=== PATIENT | male | born 1945 | race Caucasian/White ===

== ENCOUNTER 2016-11-01 10:58 | Emergency (ER) | payer OTHER ==
[~2016-11-01] VITALS: Ht 182.9 cm; Wt 139.8 kg
[~2016-11-01 10:58] MED LIST: CLON0.1D5 TD; MCR5 PO; ONDA4TAB7 SL; TRIA75TA53 PO
[2016-11-01 11:00] VITALS: TEMP 36.6; Ht 182.9 cm; Wt 139.8 kg
[2016-11-01] MEDS ORDERED: SODIUM CHLORIDE 0.9% 1000ML 500 ML IV STA (11:08)
--- NOTE | 2016-11-01 11:15 | EMERGENCY ROOM VISIT NOTE ---
History Report prepared by Jose Miguel: Diana Herring Under the Supervision of: Dr. Dino Darling M.D. First contact with patient: 11:02 Chief Complaint: URINARY SYMPTOMS Stated Complaint: PAINFUL URINATION - CONSTANT LOWER UT PAIN Nursing Triage Summary: Burning and pain on urination. Hx of UTI. History of Present Illness The patient is a 71 year old male who presents to the Emergency Room with complaints of persistent urinary symptoms that began a few days ago. He currently rates his discomfort as an 8/10 in severity. The patient states that he has a history of UTIs over the past four years. He states that since September he has been passing stones. The patient states that he was placed on an antibiotic in September as well. He states that one year ago he was placed on Pyridium while also on his antibiotics, noting that it alleviated his pain. The patient states that he was told that he needs to have further testing prior to being prescribed more medication. Today he reports burning with urination and a slower urinary flow. The patient states that he has previously had a Allison catheter placed. He denies any fever, vomiting, or diarrhea. Source of History: patient Position: other (global) Symptom Intensity: 8/10 Quality: other (urinary symptoms) Timing: other (persistent) Associated Symptoms: No fevers, No vomiting, No diarrhea Review of Systems See HPI for pertinent positives & negatives. A total of 10 systems reviewed and were otherwise negative. Past Medical & Surgical Medical Problems: (1) Benign hypertension (2) Diabetes mellitus type 2 (3) Esophagitis (4) Pneumonia Family History Unobtainable family history due to adoption Social History Smoking Status: Never Smoker Alcohol Use: none Drug Use: none Marital Status: Housing Status: lives with significant other Occupation Status: employed Current/Historical Medications Scheduled Acetaminophen (Tylenol Arthritis Ext Rel), 650 MG PO Q8H Aspirin Enteric Coated (Ecotrin Or Generic), 325 MG PO TID Cephalexin Monohydrate (Keflex), 500 MG PO TID Clonidine Hcl (Tiujnnzw-Twd-5), 1 PATCH TOP WK Cranberry (Vaccinium Macrocarp (Azo-Cranberry), 450 MG PO BID Enalapril (Vasotec), 5 MG PO DAILY Glyburide (Micronase), 10 MG PO BID Pantoprazole (Protonix), 40 MG PO DAILY Phenazopyridine HCl (Azo Urinary Pain Relief), 95 MG PO TID Sitagliptin (Januvia), 50 MG PO DAILY Triamterene/Hctz (Dyazide 37.5MG/25MG), 1 TAB PO DAILY Scheduled PRN Phenazopyridine HCl (Pyridium), 200 MG PO TID PRN for Frequency/Burning w/ Urination Allergies Coded Allergies: Ciprofloxacin (Unverified Allergy, Unknown, cramping/nausea, 11/01/16) Physical Exam Vital Signs Date Time Temp Pulse Resp B/P (MAP) Pulse Ox O2 Delivery O2 Flow Rate FiO2 11/01/16 14:09 62 20 196/94 95 11/01/16 13:14 63 18 202/84 95 Room Air 11/01/16 11:00 36.6 73 18 210/83 94 Room Air Physical Exam GENERAL: Patient is in no acute distress. HEENT: No acute trauma, normocephalic atraumatic, mucous membranes moist, no nasal congestion, no scleral icterus. NECK: No stridor, no adenopathy, no meningismus, trachea is midline. LUNGS: Clear to auscultation bilaterally, no wheeze, no rhonchi, breath sounds equal. HEART: Without murmurs gallops or rubs, regular rate and rhythm. ABDOMEN: Small reducible nontender umbilical hernia. Soft, nontender, bowel sounds positive, no peritonitis. BACK: No flank discomfort with percussion. GROIN: No scrotal cellulitis, no discharge from the penile meatus. EXTREMITIES: Mild bilateral pedal edema. No cyanosis, full range of motion of all the joints without pain or difficulty, no signs for acute trauma. NEUROLOGIC: Oriented x 3, no acute motor or sensory deficits, no focal weakness. SKIN: No rash, no jaundice, no diaphoresis. Medical Decision & Procedures ER Provider Diagnostic Interpretation: Bladder scan revealed 2 cc, no significant retention. CT results as stated below per my review and radiologist interpretation: CT OF THE ABDOMEN AND PELVIS WITHOUT CONTRAST, STONE PROTOCOL CLINICAL HISTORY: Lower abdominal pain. Flank pain. Pain with urination. COMPARISON STUDY: Renal ultrasound January 11, 2013 and abdominal aortic ultrasound June 15, 2013. TECHNIQUE: Helical axial images of the abdomen and pelvis were obtained without IV or oral contrast according to renal stone protocol. A dose lowering technique was utilized adhering to the principles of ALARA. FINDINGS: Unenhanced images of the liver, adrenal glands and pancreas are unremarkable. A 2.5 cm hypodense splenic lesion may have minimal peripheral calcification. This is statistically benign. There is no hydronephrosis or hydroureter. There are possible punctate left renal calculi. There are no ureteral calculi. There is a 3.3 x 2.2 cm bladder calculus. There is a 1.6 cm exophytic lesion within the midpole of the right kidney. Attenuation on this exam is 46 Hounsfield units. This is indeterminate. The prostate is markedly enlarged, measuring 6.7 cm in transverse dimension. There is no evidence for a bowel obstruction. There is sigmoid diverticulosis without evidence for acute diverticulitis. Umbilical hernia contains a loop of small bowel without resultant bowel obstruction. The appendix is normal. A mildly enlarged left common iliac lymph node is unchanged and MRI of January 15, 2013. Therefore, this is likely benign. There are no suspicious skeletal lesions. IMPRESSION: 1. 3.3 x 2.2 cm bladder calculus. No ureteral calculi. No hydronephrosis or hydroureter. Possible punctate left renal calculus. 2. Indeterminate 1.6 cm lesion within the midpole of the right kidney. This could reflect a solid renal lesion or hyperdense cyst. A follow-up nonemergent renal protocol CT is recommended. 3. Sigmoid diverticulosis without evidence for acute diverticulitis. 4. Marked enlargement of the prostate. 5. Umbilical hernia which contains a loop of small bowel. No resultant bowel obstruction. Normal appendix. Electronically signed by: Ernesto Ayala M.D. 11/01/2016 12:46 PM Dictated Date/Time: 11/01/2016 12:34 PM Laboratory Results 11/01/16 11:47 Red Blood Count 4.24, Mean Corpuscular Volume 89.6, Mean Corpuscular Hemoglobin 28.3, Mean Corpuscular Hemoglobin Concent 31.6, Mean Platelet Volume 11.2, Neutrophils (%) (Auto) 65.1, Lymphocytes (%) (Auto) 25.0, Monocytes (%) (Auto) 8.3, Eosinophils (%) (Auto) 1.0, Basophils (%) (Auto) 0.3, Neutrophils # (Auto) 4.61, Lymphocytes # (Auto) 1.77, Monocytes # (Auto) 0.59, Eosinophils # (Auto) 0.07, Basophils # (Auto) 0.02 11/01/16 11:47 Test 11/01/16 11:27 11/01/16 11:47 Urine Color DK YELLOW Urine Appearance CLEAR (CLEAR) Urine pH 7.5 (4.5-7.5) Urine Specific [place] 1.021 (1.000-1.030) Urine Protein 2+ (NEG) Urine Glucose (UA) NEG (NEG) Urine Ketones NEG (NEG) Urine Occult Blood 2+ (NEG) Urine Nitrite POS (NEG) Urine Bilirubin NEG (NEG) Urine Urobilinogen NEG (NEG) Urine Leukocyte Esterase SMALL (NEG) Urine WBC (Auto) 10-30 /hpf (0-5) Urine RBC (Auto) >30 /hpf (0-4) Urine Hyaline Casts (Auto) 0 /lpf (0-5) Urine Epithelial Cells (Auto) 10-20 /lpf (0-5) Urine Bacteria (Auto) NEG (NEG) White Blood Count 7.08 K/uL (4.8-10.8) Red Blood Count 4.24 M/uL (4.7-6.1) Hemoglobin 12.0 g/dL (14.0-18.0) Hematocrit 38.0 % (42-52) Mean Corpuscular Volume 89.6 fL (80-100) Mean Corpuscular Hemoglobin 28.3 pg (25-34) Mean Corpuscular Hemoglobin Concent 31.6 g/dl (32-36) Platelet Count 164 K/uL (130-400) Mean Platelet Volume 11.2 fL (7.4-10.4) Neutrophils (%) (Auto) 65.1 % Lymphocytes (%) (Auto) 25.0 % Monocytes (%) (Auto) 8.3 % Eosinophils (%) (Auto) 1.0 % Basophils (%) (Auto) 0.3 % Neutrophils # (Auto) 4.61 K/uL (1.4-6.5) Lymphocytes # (Auto) 1.77 K/uL (1.2-3.4) Monocytes # (Auto) 0.59 K/uL (0.11-0.59) Eosinophils # (Auto) 0.07 K/uL (0-0.5) Basophils # (Auto) 0.02 K/uL (0-0.2) RDW Standard Deviation 49.5 fL (36.4-46.3) RDW Coefficient of Variation 15.2 % (11.5-14.5) Immature Granulocyte % (Auto) 0.3 % Immature Granulocyte # (Auto) 0.02 K/uL (0.00-0.02) Anion Gap 8.0 mmol/L (3-11) Est Creatinine Clear Calc Drug Dose 83.0 ml/min Estimated GFR () 70.6 Estimated GFR (Non- 60.9 BUN/Creatinine Ratio 18.9 (10-20) Lactic Acid Level 1.5 mmol/L (0.4-2.0) Calcium Level 9.0 mg/dl (8.5-10.1) Total Bilirubin 0.4 mg/dl (0.2-1) Aspartate Amino Transf (AST/SGOT) 23 U/L (15-37) Alanine Aminotransferase (ALT/SGPT) 30 U/L (12-78) Alkaline Phosphatase 77 U/L (45-117) Total Protein 7.3 gm/dl (6.4-8.2) Albumin 3.4 gm/dl (3.4-5.0) Globulin 3.9 gm/dl (2.5-4.0) Albumin/Globulin Ratio 0.9 (0.9-2) Laboratory results reviewed by me. Medications Administered Medications (Trade) Dose Ordered Sig/Mikey Route Start Time Stop Time Status Last Admin Dose Admin Sodium Chloride 500 ml @ 999 mls/hr Q31M STAT IV 11/01/16 11:08 11/01/16 11:38 DC 11/01/16 11:49 999 MLS/HR Ceftriaxone Sodium (Rocephin Inj) 1 gm NOW STAT IV 11/01/16 12:46 11/01/16 12:47 DC 11/01/16 13:13 1 GM Phenazopyridine HCl (Pyridium Tab) 200 mg NOW STAT PO 11/01/16 13:22 11/01/16 13:23 DC 11/01/16 13:38 200 MG ED Course 1105: The patient was evaluated in room C6. A complete history and physical exam was performed. 1108: Ordered Sodium Chloride 500 ml @ 999 mls/hr IV. 1246: Ordered Rocephin Inj 1 gm IV. 1322: Ordered Pyridium Tab 200 mg PO. 1326: I reevaluated the patient and he is resting comfortably. I discussed the exam findings with him and I discussed the treatment plan. He verbalized complete understanding and agreement. He is ready to go home. Medical Decision The patient is a 71 year old male who presents to the ED with complaints of urinary symptoms. Differential diagnoses considered include Prostatitis, UTI, urinary retention, renal colic, renal failure, sepsis, electrolyte abnormality, anemia. There is no leukocytosis or concerning anemia. No significant electrolyte abnormality, kidney failure or hepatitis. Lactic acid was not elevated making sepsis less likely. Urinalysis shows hematuria and possible infection, urine culture and blood cultures are pending. Bladder scan did not show any significant urinary retention. Abdominal and pelvis CT did not show any evidence for a passing ureteral stone. No hydronephrosis. Prostate was enlarged. There was a bladder stone seen. The patient received oral Pyridium for the burning sensation. He was given IV saline and IV ceftriaxone. The patient looks well, he is not toxic. He has been reassured. He is being discharged home. I think his discomfort is secondary to a UTI and/or prostatitis. The bladder stone may be aggravating his symptoms. Antibiotics are being prescribed. Pyridium for the burning. Hydration and rest were encouraged. He will follow with his family doctor and with urology. If worsening, he will return. Medication Reconcilliation Current Medication List: was personally reviewed by me Blood Pressure Screening Patient's blood pressure: Elevated blood pressure Blood pressure disposition: Elevated BP felt to be situational, Did not require urgent referral Impression Primary Impression: UTI (urinary tract infection) Additional Impressions: Dysuria Bladder stone Scribe Attestation The scribe's documentation has been prepared under my direction and personally reviewed by me in its entirety. I confirm that the note above accurately reflects all work, treatment, procedures, and medical decision making performed by me. Departure Information Dispostion Home / Self-Care Prescriptions Phenazopyridine HCl (Pyridium) 200 Mg Tab 200 MG PO TID Y for Frequency/Burning w/Urination, #15 TAB 1 Refill Prov: Dino Darling M.D. 11/01/16 Cephalexin Monohydrate (Keflex) 500 Mg Cap 500 MG PO TID for 10 Days, #30 CAP Prov: Dino Darling M.D. 11/01/16 Referrals Roe Hayes M.D. (PCP) Forms HOME CARE DOCUMENTATION FORM, IMPORTANT VISIT INFORMATION Patient Instructions My [facility] Additional Instructions keflex 3x per day for 10 days pyridium as need 3x per day for burning fluids rest talk with your doctor or urology for a recheck and for the bladder stone return for fever, vomiting or worsening symptoms Problem Qualifiers
[2016-11-01] MEDS ORDERED: GLYB5TAB8 PO (11:46)
[2016-11-01] MEDS ORDERED: TRIA37.5 PO (11:46)
[2016-11-01] MEDS ORDERED: SITA50TA3 PO (11:46)
[2016-11-01] MEDS ORDERED: CLON0.2D4 TOP (11:46)
[2016-11-01] MEDS ORDERED: ACET1TAB84 PO (11:47)
[2016-11-01] MEDS ORDERED: CRAN450T3 PO (11:47)
[2016-11-01] MEDS ORDERED: PHEN95TA10 PO (11:47)
[2016-11-01] MEDS ORDERED: ASPI-113 PO (11:47)
[2016-11-01 12:11] LABS: URINE APPEARANCE CLEAR (CLEAR); URINE BILIRUBIN NEG (NEG); URINE COLOR DK YELLOW; URINE NITRITE POS (NEG); URINE PH 7.5 (4.5-7.5); URINE SPECIFIC GRAVITY 1.021 (1.000-1.030); UROBILINOGEN NEG (NEG); ZZUR CULT IF INDIC CLEAN CATCH YES
[2016-11-01 12:16] LABS: BASO % 0.3 %; BASO ABS # 0.02 K/uL (0-0.2); COMPLETE YES; IG% 0.3 %; LYMPH ABS # 1.77 K/uL (1.2-3.4); MEAN CELL VOLUME 89.6 fL (80-100); MEAN CORPUSCULAR HEMOGLOBIN 28.3 pg (25-34); MEAN CORPUSCULAR HGB CONC 31.6 g/dl (32-36); MEAN PLATELET VOLUME 11.2 fL (7.4-10.4); MONO % 8.3 %; NEUT % 65.1 %; PLATELET COUNT 164 K/uL (130-400); RED BLOOD COUNT 4.24 M/uL (4.7-6.1); WHITE BLOOD COUNT 7.08 K/uL (4.8-10.8)
[2016-11-01 12:16] LABS: MANUAL MICROSCOPIC REQUIRED? NO; REVIEW REQ? NO
[2016-11-01 12:19] LABS: SULFASALICYLIC ACID POS (NEG)
[2016-11-01 12:27] LABS: BUN/CREATININE RATIO 18.9 (10-20); CREATININE 1.2 mg/dl (0.60-1.40)
[2016-11-01 12:30] LABS: ALB/GLOB RATIO 0.9 (0.9-2)
[2016-11-01] MEDS ORDERED: CEFTRIAXONE SOD INJ 1 GM ADDVIAL IV STA (12:46)
--- NOTE | 2016-11-01 12:47 | DIAGNOSTIC IMAGING REPORT ---
CT OF THE ABDOMEN AND PELVIS WITHOUT CONTRAST, STONE PROTOCOL CLINICAL HISTORY: Lower abdominal pain. Flank pain. Pain with urination. COMPARISON STUDY: Renal ultrasound January 11, 2013 and abdominal aortic ultrasound June 15, 2013. TECHNIQUE: Helical axial images of the abdomen and pelvis were obtained without IV or oral contrast according to renal stone protocol. A dose lowering technique was utilized adhering to the principles of ALARA. FINDINGS: Unenhanced images of the liver, adrenal glands and pancreas are unremarkable. A 2.5 cm hypodense splenic lesion may have minimal peripheral calcification. This is statistically benign. There is no hydronephrosis or hydroureter. There are possible punctate left renal calculi. There are no ureteral calculi. There is a 3.3 x 2.2 cm bladder calculus. There is a 1.6 cm exophytic lesion within the midpole of the right kidney. Attenuation on this exam is 46 Hounsfield units. This is indeterminate. The prostate is markedly enlarged, measuring 6.7 cm in transverse dimension. There is no evidence for a bowel obstruction. There is sigmoid diverticulosis without evidence for acute diverticulitis. Umbilical hernia contains a loop of small bowel without resultant bowel obstruction. The appendix is normal. A mildly enlarged left common iliac lymph node is unchanged and MRI of January 15, 2013. Therefore, this is likely benign. There are no suspicious skeletal lesions. IMPRESSION: 1. 3.3 x 2.2 cm bladder calculus. No ureteral calculi. No hydronephrosis or hydroureter. Possible punctate left renal calculus. 2. Indeterminate 1.6 cm lesion within the midpole of the right kidney. This could reflect a solid renal lesion or hyperdense cyst. A follow-up nonemergent renal protocol CT is recommended. 3. Sigmoid diverticulosis without evidence for acute diverticulitis. 4. Marked enlargement of the prostate. 5. Umbilical hernia which contains a loop of small bowel. No resultant bowel obstruction. Normal appendix. Electronically signed by: Ernesto Ayala M.D. 11/01/2016 12:46 PM Dictated Date/Time: 11/01/2016 12:34 PM
[2016-11-01] MEDS ORDERED: PHENAZOPYRIDINE HCL 200 MG TAB PO STA (13:22)
[2016-11-01] MEDS ORDERED: PHEN-876 PO (13:32)
[2016-11-01] MEDS ORDERED: CEPH500C PO (13:32)
[2016-11-01 14:09] VITALS: BP 196/94; PULSE 62; O2SAT 95
[2016-11-01] MEDS ORDERED: PANT40TA PO (15:24)
[2016-11-01] MEDS ORDERED: ENAL5TAB83 PO (15:46)
== END 2016-11-01 14:09 | disposition home or self-care (01) ==
LOC: C.EDB 10:59 → C.EDC 14:09
DX: N39.0 Urinary tract infection, site not specified (principal); R30.0 Dysuria; N21.0 Calculus in bladder; E11.9 Type 2 diabetes mellitus without complications; I10 Essential (primary) hypertension

== ENCOUNTER 2017-03-15 12:54 | Emergency (ER) | payer OTHER ==
[~2017-03-15] VITALS: Ht 182.9 cm; Wt 138.4 kg
[~2017-03-15 12:54] MED LIST changes: +ACET1TAB84 PO; +ASPI-113 PO; -CLON0.1D5 TD; +CLON0.2D4 TOP; +CRAN450T3 PO; +ENAL5TAB83 PO; +GLYB5TAB8 PO; -MCR5 PO; -ONDA4TAB7 SL; +PANT40TA PO; +PHEN-876 PO; +PHEN95TA10 PO; +SITA50TA3 PO; +TRIA37.5 PO; -TRIA75TA53 PO
[2017-03-15 12:58] VITALS: TEMP 36.7; Ht 182.9 cm; Wt 138.4 kg
[2017-03-15] MEDS ORDERED: SODIUM CHLORIDE 0.9% 500ML 500 ML IV STA (13:11)
[2017-03-15] MEDS ORDERED: ALBUT/IPRATROP 3MG/0.5MG NEB 3 ML VIAL INH STA (13:11)
[2017-03-15] MEDS ORDERED: ACETAMINOPHEN 500 MG TAB PO STA (13:19)
--- NOTE | 2017-03-15 13:30 | EMERGENCY ROOM VISIT NOTE ---
History First contact with patient: 13:02 Chief Complaint: COUGH Stated Complaint: COUGHING, LOW FEVER, WEAKNESS History of Present Illness The patient is a 71 year old male who presents to the Emergency Room with complaints of cough, congestion, sore throat, and headaches for the past 5 days. Patient states he has been taking Claritin and Mucinex with some improvement, and has been coughing up green mucus. Today he was feeling worse and noted a fever of 99, and also felt some chest tightness with coughing today , which is what prompted him to come to the emergency department. He reports his headache is constant, frontal in the forehead and behind the eyes, worse with bending over, relieved with Claritin. He states his throat is also sore, constant, hurts to swallow, worse in the morning, 8/10. He has had improvement with Tylenol, but has not taken any today. He reports a history of pulmonary fibrosis, but is not on any medications for this. 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 Patient denies any vision changes, neck pain or stiffness, numbness or weakness of the extremities, abdominal pain, back pain, nausea/vomiting, diarrhea, dysuria or urinary frequency, or rash. Review of Systems A complete 10 point review of systems was reviewed with the patient with pertinent positives and negatives as per history of present illness. All else were negative. Past Medical/Surgical History Medical Problems: (1) Benign hypertension (2) Diabetes mellitus type 2 (3) Esophagitis (4) Pneumonia Family History Unobtainable family history due to adoption Social History Smoking Status: Never Smoker Alcohol Use: none Drug Use: none Marital Status: Housing Status: lives with significant other Occupation Status: employed Current/Historical Medications Scheduled Acetaminophen (Tylenol Arthritis Ext Rel), 650 MG PO Q8H Amoxicillin & Pot Clavulanate (Augmentin 875-125 mg), 1 TAB PO BID Aspirin Enteric Coated (Ecotrin Or Generic), 325 MG PO TID Clonidine Hcl ([id number]-2), 1 PATCH TOP WK Cranberry (Vaccinium Macrocarp (Azo-Cranberry), 450 MG PO BID Enalapril (Vasotec), 5 MG PO DAILY Glyburide (Micronase), 10 MG PO BID Pantoprazole (Protonix), 40 MG PO DAILY Phenazopyridine HCl (Azo Urinary Pain Relief), 95 MG PO TID Sitagliptin (Januvia), 50 MG PO DAILY Triamterene/Hctz (Dyazide 37.5MG/25MG), 1 TAB PO DAILY Allergies Reviewed in chart Physical Exam Vital Signs Date Time Temp Pulse Resp B/P (MAP) Pulse Ox O2 Delivery O2 Flow Rate FiO2 03/15/17 16:45 89 20 94 03/15/17 16:34 83 03/15/17 16:14 95 Room Air 03/15/17 16:06 82 20 152/82 89 Room Air 03/15/17 14:30 96 24 122/79 94 Room Air 03/15/17 13:50 87 03/15/17 12:58 36.7 82 20 182/85 93 Room Air Physical Exam CONSTITUTIONAL: Pleasant and cooperative. No acute distress, nontoxic appearing. Mildly dehydrated. HEENT: Normocephalic, atraumatic. Tenderness to palpation of the frontal and maxillary sinuses, no erythema or swelling of the face. PERRL, EOMI. The right conjunctiva is slightly erythematous and injected, the left conjunctiva is clear. TMs normal. Pharynx slightly erythematous, no swelling or pustules, postnasal drainage noted. Tacky mucous membranes. NECK: Supple, full active range of motion without discomfort. Mild bilateral anterior cervical adenopathy, tender to palpation. RESPIRATORY: Diminished throughout, no wheezing, crackles, rhonchi or stridor. Equal expansion bilaterally. CARDIOVASCULAR: Regular rate and rhythm with no murmurs, rubs or gallops. Normal peripheral perfusion. No edema. GASTROINTESTINAL: Soft, nontender, nondistended, obese. No palpable masses or HSM. Bowel sounds present in all quadrants. MUSCULOSKELETAL: Full range of motion of all joints without discomfort. INTEGUMENTARY: No rash or other significant dermatologic conditions noted. NEUROLOGIC: Alert and oriented X 4 with normal affect. Cranial nerves II-XII grossly intact. No focal neurologic deficits noted. Normal strength and sensation of all 4 extremities, normal speech, normal gait observed. Normal [id number]-ratr-igrprm testing, negative Romberg. Medical Decision & Procedures ER Provider Diagnostic Interpretation: CHEST 2 VIEWS ROUTINE CLINICAL HISTORY: Respiratory distress, cough, fever, flulike symptoms. COMPARISON STUDY: 06/10/2014 FINDINGS: The cardiac and mediastinal contours are normal. There is no evidence of focal pulmonary consolidation. There is no evidence of failure. No pleural effusions are visualized. IMPRESSION: No active disease in the chest. Laboratory Results 03/15/17 14:06 Red Blood Count 4.66, Mean Corpuscular Volume 87.3, Mean Corpuscular Hemoglobin 28.1, Mean Corpuscular Hemoglobin Concent 32.2, Mean Platelet Volume 11.7, Neutrophils (%) (Auto) 71.5, Lymphocytes (%) (Auto) 17.8, Monocytes (%) (Auto) 9.0, Eosinophils (%) (Auto) 1.2, Basophils (%) (Auto) 0.3, Neutrophils # (Auto) 8.51, Lymphocytes # (Auto) 2.11, Monocytes # (Auto) 1.07, Eosinophils # (Auto) 0.14, Basophils # (Auto) 0.03 03/15/17 14:06 Test 03/15/17 13:24 03/15/17 14:06 03/15/17 15:35 Influenza Type A (RT-PCR) Neg for Influ A (NEG) Influenza Type A Antigen Neg for Influ A (NEG) Influenza Type B Antigen Neg for Influ B (NEG) Influenza Type B (RT-PCR) Neg for Influ B (NEG) White Blood Count 11.88 K/uL (4.8-10.8) Red Blood Count 4.66 M/uL (4.7-6.1) Hemoglobin 13.1 g/dL (14.0-18.0) Hematocrit 40.7 % (42-52) Mean Corpuscular Volume 87.3 fL (80-100) Mean Corpuscular Hemoglobin 28.1 pg (25-34) Mean Corpuscular Hemoglobin Concent 32.2 g/dl (32-36) Platelet Count 157 K/uL (130-400) Mean Platelet Volume 11.7 fL (7.4-10.4) Neutrophils (%) (Auto) 71.5 % Lymphocytes (%) (Auto) 17.8 % Monocytes (%) (Auto) 9.0 % Eosinophils (%) (Auto) 1.2 % Basophils (%) (Auto) 0.3 % Neutrophils # (Auto) 8.51 K/uL (1.4-6.5) Lymphocytes # (Auto) 2.11 K/uL (1.2-3.4) Monocytes # (Auto) 1.07 K/uL (0.11-0.59) Eosinophils # (Auto) 0.14 K/uL (0-0.5) Basophils # (Auto) 0.03 K/uL (0-0.2) RDW Standard Deviation 48.5 fL (36.4-46.3) RDW Coefficient of Variation 15.3 % (11.5-14.5) Immature Granulocyte % (Auto) 0.2 % Immature Granulocyte # (Auto) 0.02 K/uL (0.00-0.02) Anion Gap 3.0 mmol/L (3-11) Est Creatinine Clear Calc Drug Dose 72.3 ml/min Estimated GFR () 60.1 Estimated GFR (Non- 51.9 BUN/Creatinine Ratio 11.7 (10-20) Lactic Acid Level 2.0 mmol/L (0.4-2.0) Calcium Level 9.5 mg/dl (8.5-10.1) Total Bilirubin 0.4 mg/dl (0.2-1) Aspartate Amino Transf (AST/SGOT) 13 U/L (15-37) Alanine Aminotransferase (ALT/SGPT) 28 U/L (12-78) Alkaline Phosphatase 94 U/L (45-117) Troponin I < 0.015 ng/ml (0-0.045) Total Protein 8.7 gm/dl (6.4-8.2) Albumin 3.5 gm/dl (3.4-5.0) Globulin 5.2 gm/dl (2.5-4.0) Albumin/Globulin Ratio 0.7 (0.9-2) Urine Color DK YELLOW Urine Appearance CLEAR (CLEAR) Urine pH 8.5 (4.5-7.5) Urine Specific [place] 1.019 (1.000-1.030) Urine Protein NEG (NEG) Urine Glucose (UA) NEG (NEG) Urine Ketones NEG (NEG) Urine Occult Blood NEG (NEG) Urine Nitrite POS (NEG) Urine Bilirubin NEG (NEG) Urine Urobilinogen NEG (NEG) Urine Leukocyte Esterase SMALL (NEG) Urine WBC (Auto) 10-30 /hpf (0-5) Urine RBC (Auto) 0-4 /hpf (0-4) Urine Hyaline Casts (Auto) 1-5 /lpf (0-5) Urine Epithelial Cells (Auto) 0-5 /lpf (0-5) Urine Bacteria (Auto) NEG (NEG) Medications Administered Medications (Trade) Dose Ordered Sig/Mikey Route Start Time Stop Time Status Last Admin Dose Admin Albuterol/ Ipratropium (Duoneb) 3 ml NOW STAT INH 03/15/17 13:11 03/15/17 13:16 DC 03/15/17 13:35 3 ML Sodium Chloride 500 ml @ 999 mls/hr Q31M STAT IV 03/15/17 13:11 03/15/17 14:38 DC 03/15/17 13:11 999 MLS/HR Acetaminophen (Tylenol Tab) 1,000 mg NOW STAT PO 03/15/17 13:19 03/15/17 13:20 DC 03/15/17 13:35 1,000 MG Albuterol (Ventolin Hfa Inhaler) 2 puffs NOW ONCE INH 03/15/17 16:00 03/15/17 16:01 DC 03/15/17 16:11 2 PUFFS Amoxicillin/ Clavulanate Potassium (Augmentin Tab) 875 mg NOW ONCE PO 03/15/17 16:30 03/15/17 16:31 DC 03/15/17 16:40 875 MG ECG Indication: SOB/dyspnea, weakness Rate (beats per minute): 95 Rhythm: normal sinus Findings: 1st degree AV block, PVC, no acute ischemic change Change: no significant change (when compared to 06/10/2014, PVCs now present ( PVCs noted on several other past EKGs, not a new problem)) Medical Decision CC: Patient presenting with complaint of cough, congestion, sore throat, sinus headaches, fevers Interpretation of Labs: Mild leukocytosis, mild anemia (baseline), hyperglycemia , mild hyponatremia, no other significant electrolyte abnormalities, normal renal function, normal liver enzymes. Influenza A/B negative. UA shows positive for nitrites, culture pending. Differential Diagnosis: Includes, but not limited to viral URI, sinusitis, influenza, pharyngitis, bronchitis, pneumonia, ACS Medication Reconciliation: I attest that I have personally reviewed the patient' s current medication list. Vital signs review: I reviewed the patient's vital signs and interpret them as follows: T: Afebrile; BP: Hypertensive; HR: Within normal limits; RR: Within normal limits; Pulse Ox: Within normal limits on room air. Blood pressure screening: The patient was found to have an elevated blood pressure and was referred to their primary doctor for recheck and further treatment. Summary: Patient was evaluated at bedside, history and physical exam performed. Patient is alert and oriented, no acute distress and nontoxic appearing, resting , in the stretcher. Patient does appear highly uncomfortable, fatigued, and mildly dehydrated. Neuro exam is intact, he is alert and oriented, and no focal deficits noted. He does have some sinus tenderness of the frontal maxillary sinuses, and mild right conjunctivitis noted. Lungs are clear without any wheezes or rhonchi heard, but diminished throughout and patient complaining of cough and chest tightness. I did recheck the patient's temperature in the room, currently 99.5, and he is complaining of some chills. Orders were placed at bedside for labs, UA, IV fluids for hydration, DuoNeb, Tylenol, EKG, chest x-ray to evaluate for cardiopulmonary disease. Patient discussed with Dr. Ventura, who agrees with my assessment and plan. Nursing notified me unable to obtain IV access, labs have been sent. Patient is able to tolerate PO, will encourage oral rehydration at this time. Labs reviewed as above, mild leukocytosis. Influenza is negative. UA concerning for possible UTI, however patient is asymptomatic and states chronic urinary problems, will send culture for confirmation. Chest x-ray is unremarkable with no acute abnormalities. EKG shows sinus rhythm with first-degree AV block, no acute ischemic changes noted. Patient reassessed multiple times throughout ED stay, patient does feel improved after neb treatment, he does state that his cough and breathing feel better. Patient was provided with an albuterol inhaler and spacer for continued use at home. Rx for Augmentin to treat for sinus infection and bronchitis, given worsening symptoms with colored sputum and development of low-grade fevers. Ambulatory sats within normal limits and no shortness of breath or distress with ambulation noted by nursing staff. I updated the patient on all results and plan for discharge, encouraging him to follow closely with his primary care provider. He was also given strict return precautions should his symptoms worsen. The patient verbalized understanding of all discharge instructions and was comfortable with the plan. Patient was discharged home in stable condition and ambulatory. Medication Reconcilliation Current Medication List: was personally reviewed by me Blood Pressure Screening Patient's blood pressure: Elevated blood pressure Impression Primary Impression: Sinusitis, acute Additional Impression: Bronchitis Departure Information Dispostion Home / Self-Care Condition GOOD Prescriptions Amoxicillin & Pot Clavulanate (Augmentin 875-125 mg) 1 Tab Tab 1 TAB PO BID for 10 Days, #20 TAB Prov: Jaquelin Evans Yoanna, DATA ANALYTICS ANALYST 03/15/17 Referrals Roe Hayes M.D. (PCP) Patient Instructions ED Sinusitis Abx Tx, ED Upper Resp Infec Abx Tx, My [facility] Additional Instructions You have been evaluated in the emergency department for your cough and sinus congestion. There is no evidence of pneumonia on your chest x-ray. You are being treated for a sinus infection and bronchitis. You were prescribed Augmentin to be taken twice a day for 10 days. This is an antibiotic. All antibiotics have the potential to cause diarrhea. Stop this medication and contact a medical provider if you were to develop any significant adverse side effects including: wheezing, shortness of breath, passing out, vomiting, or a diffuse rash. Always take antibiotics as directed and COMPLETE the ENTIRE course regardless of the improvement of your symptoms. Use the albuterol inhaler TWO puffs every 4 hours as needed for cough, wheezing , chest tightness. You should also use this before bed to help prevent coughing so that you can sleep better at night. For body aches or fevers, you may use the following edex-yqq-bynmtif medicines ( if >12 yo): - Regular strength (325mg/tab) Tylenol (acetaminophen) 2 tabs every 4-6 hours as needed. Do not exceed 10 tablets in a 24 hour period. Avoid taking more than 3000 mg of Tylenol per day. This includes any other sources of acetaminophen you may take on a regular basis. - Regular strength (200 mg/tab) Advil (ibuprofen) 3 tabs every 6-8 hours as needed. Do not exceed a dose of 2400 mg per day. - For best results, alternate dosing of Tylenol and Advil. Use warm salt water gargles and drink warm tea to help soothe your throat. Use saline nasal spray to help keep your nasal passages moist and help reduce inflammation. You may also try nasal Flonase or Nasonex, 2 sprays to each nostril once a day to help reduce nasal inflammation and drainage. It is very important that you drink lots of fluids to stay hydrated. Follow-up with your PCP in the next 2-3 days for re-evaluation, or sooner if your symptoms are worsening. Please return to the emergency department get worse, including difficulty breathing, wheezing, chest pain, severe dizziness or passing out, increased throat pain or difficulty swallowing, fevers >101 or chills, or any other concerns. Problem Qualifiers Primary Impression: Sinusitis, acute Sinusitis location: unspecified location Recurrence: not specified as recurrent Qualified Codes: J01.90 - Acute sinusitis, unspecified
[2017-03-15 13:57] LABS: INFLUENZA B ANTIGEN Neg for Influ B (NEG)
[2017-03-15 14:22] LABS: BASO % 0.3 %; BASO ABS # 0.03 K/uL (0-0.2); EOS % 1.2 %; EOS ABS # 0.14 K/uL (0-0.5); HEMATOCRIT 40.7 % (42-52); HEMOGLOBIN 13.1 g/dL (14.0-18.0); IG# 0.02 K/uL (0.00-0.02); LYMPH % 17.8 %; LYMPH ABS # 2.11 K/uL (1.2-3.4); MEAN CELL VOLUME 87.3 fL (80-100); MEAN CORPUSCULAR HEMOGLOBIN 28.1 pg (25-34); MEAN CORPUSCULAR HGB CONC 32.2 g/dl (32-36); MEAN PLATELET VOLUME 11.7 fL (7.4-10.4); MONO ABS # 1.07 K/uL (0.11-0.59); NEUT % 71.5 %; NEUT ABS # 8.51 K/uL (1.4-6.5); PLATELET COUNT 157 K/uL (130-400); RED CELL DISTRIBUTION WIDTH CV 15.3 % (11.5-14.5); RED CELL DISTRIBUTION WIDTH SD 48.5 fL (36.4-46.3); WHITE BLOOD COUNT 11.88 K/uL (4.8-10.8)
--- NOTE | 2017-03-15 14:26 | EMERGENCY ROOM VISIT NOTE ---
ED Visit Note First contact with patient: 13:02 The patient was seen and examined with GRAYSON Carpenter. I agree with the history, physical and findings. Please see the note for disposition and details.
--- NOTE | 2017-03-15 14:29 | DIAGNOSTIC IMAGING REPORT ---
CHEST 2 VIEWS ROUTINE CLINICAL HISTORY: Respiratory distress, cough, fever, flulike symptoms. COMPARISON STUDY: 06/10/2014 FINDINGS: The cardiac and mediastinal contours are normal. There is no evidence of focal pulmonary consolidation. There is no evidence of failure. No pleural effusions are visualized.[ IMPRESSION: No active disease in the chest. Electronically signed by: Kavon Hastings M.D. 03/15/2017 2:28 PM Dictated Date/Time: 03/15/2017 2:28 PM
[2017-03-15 14:45] LABS: ALBUMIN 3.5 gm/dl (3.4-5.0); ALT/SGPT 28 U/L (12-78); AST/SGOT 13 U/L (15-37); BLOOD UREA NITROGEN 16 mg/dl (7-18); CALCIUM 9.5 mg/dl (8.5-10.1); CARBON DIOXIDE 31 mmol/L (21-32); CREATININE 1.37 mg/dl (0.60-1.40); GLUCOSE 249 mg/dl (70-99); POTASSIUM 4.3 mmol/L (3.5-5.1); SODIUM 132 mmol/L (136-145)
[2017-03-15 14:52] LABS: INFLUENZA A PCR Neg for Influ A (NEG); INFLUENZA B PCR Neg for Influ B (NEG)
[2017-03-15 15:01] LABS: ALKALINE PHOSPHATASE 94 U/L (45-117); TOTAL PROTEIN 8.7 gm/dl (6.4-8.2)
[2017-03-15] MEDS ORDERED: ALBUTEROL HFA 8 GM INHALER INH ONE (16:00)
[2017-03-15 16:06] VITALS: BP 152/82
[2017-03-15 16:14] VITALS: O2SAT 95
[2017-03-15] MEDS ORDERED: AMOX875T PO (16:20)
[2017-03-15] MEDS ORDERED: AMOXICILLIN/CLAVULANATE TAB 875 MG TAB PO ONE (16:30)
[2017-03-15 16:45] VITALS: PULSE 89; O2SAT 94
== END 2017-03-15 16:40 | disposition home or self-care (01) ==
LOC: C.EDB 12:56 → C.EDA 16:40
DX: J01.90 Acute sinusitis, unspecified (principal); J40 Bronchitis, not specified as acute or chronic; I44.0 Atrioventricular block, first degree; I10 Essential (primary) hypertension; E11.9 Type 2 diabetes mellitus without complications; K20.9 Esophagitis, unspecified; Z79.82 Long term (current) use of aspirin; Z79.899 Other long term (current) drug therapy

== ENCOUNTER 2017-03-21 11:37 | Emergency (ER) | payer OTHER ==
[~2017-03-21] VITALS: Ht 182.9 cm; Wt 137.0 kg
[~2017-03-21 11:37] MED LIST changes: +AMOX875T PO; -PHEN-876 PO
[2017-03-21 11:39] VITALS: TEMP 37; Ht 182.9 cm; Wt 137.0 kg
[2017-03-21] MEDS ORDERED: SITA100T3 PO (12:20)
--- NOTE | 2017-03-21 12:29 | DIAGNOSTIC IMAGING REPORT ---
CHEST 2 VIEWS ROUTINE CLINICAL HISTORY: cough COMPARISON STUDY: 03/15/2017 FINDINGS: The cardiac and mediastinal contours are normal. There is no evidence of focal pulmonary consolidation. There is no evidence of failure. No pleural effusions are visualized.[ IMPRESSION: No active disease in the chest. Electronically signed by: Kavon Hastings M.D. 03/21/2017 12:28 PM Dictated Date/Time: 03/21/2017 12:28 PM
--- NOTE | 2017-03-21 12:35 | EMERGENCY ROOM VISIT NOTE ---
History Report prepared by Jose Miguel: Gayatri Devine Under the Supervision of: Eze VarmaO. First contact with patient: 11:45 Chief Complaint: URINARY SYMPTOMS Stated Complaint: UTI,URGENCY,PAIN,FREQUENCY,COUGH History of Present Illness The patient is a 71 year old male who presents to the Emergency Room with complaints of persistent urinary symptoms that began a few days ago. He notes that he has pain and a burning sensation when he urinates. The patient denies any back pain, swelling in the legs, or swelling of his penis. He states that he has been urinating more frequently. The patient states he was diagnosed with Bronchitis 6 days ago. He notes a history of bladder stones. The patient denies a history of blood clots. Source of History: patient Onset: few days ago Position: other (global ) Quality: other (urinary symptoms) Timing: other (persistent) Associated Symptoms: No back pain Review of Systems See HPI for pertinent positives & negatives. A total of 10 systems reviewed and were otherwise negative. Past Medical & Surgical Medical Problems: (1) Benign hypertension (2) Diabetes mellitus type 2 (3) Esophagitis (4) Pneumonia Family History Unobtainable family history due to adoption Social History Smoking Status: Never Smoker Alcohol Use: none Drug Use: none Marital Status: Housing Status: lives with significant other Occupation Status: employed Current/Historical Medications Scheduled Acetaminophen (Tylenol Arthritis Ext Rel), 650 MG PO Q8H Amoxicillin & Pot Clavulanate (Augmentin 875-125 mg), 1 TAB PO BID Aspirin Enteric Coated (Ecotrin Or Generic), 325 MG PO TID Clonidine Hcl ([id number]), 1 PATCH TOP WK Cranberry (Vaccinium Macrocarp (Azo-Cranberry), 450 MG PO BID Enalapril (Vasotec), 5 MG PO DAILY Glyburide (Micronase), 10 MG PO BID Nitrofurantoin Monohyd Macrocr (Macrobid), 100 MG PO BID Nystatin (Topical) (Nystatin), 1 APPLN TOP TID Pantoprazole (Protonix), 40 MG PO DAILY Phenazopyridine HCl (Azo Urinary Pain Relief), 95 MG PO BID Sitagliptin Phosphate (Januvia), 100 MG PO DAILY Triamterene/Hctz (Dyazide 37.5MG/25MG), 1 TAB PO DAILY Allergies Coded Allergies: Ciprofloxacin (Unverified Allergy, Unknown, cramping/nausea, 03/21/17) Physical Exam Vital Signs Date Time Temp Pulse Resp B/P (MAP) Pulse Ox O2 Delivery O2 Flow Rate FiO2 03/21/17 13:31 71 20 178/94 93 03/21/17 11:39 37.0 72 18 185/93 93 Physical Exam GENERAL: Patient is awake, alert, and in no acute distress. Patient is resting comfortably and showing no signs of anxiety EYES: The conjunctivae are clear. The pupils are round and reactive. EARS, NOSE, MOUTH AND THROAT: The nose is without any evidence of any deformity. Mucous membranes are moist tongue is midline NECK: The neck is nontender and supple. RESPIRATORY: Normal respiratory effort is noted there is no evidence of wheezing rhonchi or rales CARDIOVASCULAR: Regular rate and rhythm noted there no murmurs rubs or gallops normal S1 normal S2 GASTROINTESTINAL: The abdomen is soft. Bowel sounds are present in all quadrants. Abdomen is nontender : Circumcised male genitalia appreciated, testicles descended and nontender bilaterally, erythema at tip of penis consistent with Balanitis. MUSCULOSKELETAL/EXTREMITIES: There is no evidence of gross deformity full range of motion is noted in the hips and shoulders SKIN: There is no obvious evidence of any rash. There are no petechiae, pallor or cyanosis noted. NEUROLOGIC: Patient is awake alert and oriented x3 strength is symmetric patellar reflexes are 2+ bilaterally Medical Decision & Procedures ER Provider Diagnostic Interpretation: Radiology results as stated below per my review and radiologist interpretation: CHEST 2 VIEWS ROUTINE CLINICAL HISTORY: cough COMPARISON STUDY: 03/15/2017 FINDINGS: The cardiac and mediastinal contours are normal. There is no evidence of focal pulmonary consolidation. There is no evidence of failure. No pleural effusions are visualized.[ IMPRESSION: No active disease in the chest. Electronically signed by: Kavon Hastings M.D. 03/21/2017 12:28 PM Dictated Date/Time: 03/21/2017 12:28 PM Laboratory Results Test 03/21/17 12:42 Urine Color DK YELLOW Urine Appearance CLEAR (CLEAR) Urine pH 7.5 (4.5-7.5) Urine Specific [place] 1.017 (1.000-1.030) Urine Protein 2+ (NEG) Urine Glucose (UA) NEG (NEG) Urine Ketones NEG (NEG) Urine Occult Blood 3+ (NEG) Urine Nitrite POS (NEG) Urine Bilirubin NEG (NEG) Urine Urobilinogen NEG (NEG) Urine Leukocyte Esterase SMALL (NEG) Urine WBC (Auto) 1-5 /hpf (0-5) Urine RBC (Auto) >30 /hpf (0-4) Urine Hyaline Casts (Auto) 0 /lpf (0-5) Urine Epithelial Cells (Auto) 5-10 /lpf (0-5) Urine Bacteria (Auto) NEG (NEG) Laboratory results per my review. Medications Administered Medications (Trade) Dose Ordered Sig/Mikey Route Start Time Stop Time Status Last Admin Dose Admin Nitrofurantoin Macrocrystals (Macrobid Cap) 100 mg ONE ONCE PO 03/21/17 13:15 03/21/17 13:16 DC 03/21/17 13:28 100 MG ED Course 1158: The patient was evaluated in room B2. A complete history and physical examination were performed. 1315: Ordered Macrobid Cap 100mg PO. 1322: Upon reevaluation, the patient is resting comfortably. I discussed the results and treatment plan with him. He verbalized agreement of the treatment plan. The patient was discharged home. Medical Decision Prior records/ancillary studies reviewed. Triage Nursing notes reviewed. The patient's history was concerning for abdominal pain. Differential diagnosis: Etiologies such as appendicitis, diverticulitis, PUD, biliary pathology, UTI, pancreatitis, obstruction, mesenteric ischemia, aortic pathology, infections, inflammatory bowel disease, renal colic, as well as others were entertained. The patient is a 71-year-old male who presented to the emergency department for an evaluation of dysuria and frequency. The patient has hematuria and may be suffering from a cystitis. He was recently started on antibiotic for an upper respiratory infection but it does not appear to be helping his urinary symptoms. The patient was started on a different antibiotic. I discussed the patient's laboratory and radiographic studies with him. He was encouraged to rest and avoid any strenuous activity. He was also encouraged to drink plenty clear liquids and follow-up with his primary urologist. Otherwise I encouraged him to return to the emergency department immediately if symptoms change worsen or the need arises. Medication Reconcilliation Current Medication List: was personally reviewed by me Impression Primary Impression: Cystitis Additional Impressions: Balanitis Hematuria Scribe Attestation The scribe's documentation has been prepared under my direction and personally reviewed by me in its entirety. I confirm that the note above accurately reflects all work, treatment, procedures, and medical decision making performed by me. Departure Information Dispostion Home / Self-Care Prescriptions Nitrofurantoin Monohyd Macrocr (Macrobid) 100 Mg Cap 100 MG PO BID, #14 CAP Prov: Adiel Vidal, DO 03/21/17 Nystatin (Topical) (NYSTATIN) 100,000 Unit/Gm Oin 1 APPLN TOP TID for 5 Days, #30 GM 1 Refill Prov: Adiel Vidal, DO 03/21/17 Referrals Roe Hayes M.D. (PCP) Forms HOME CARE DOCUMENTATION FORM, IMPORTANT VISIT INFORMATION Patient Instructions My [facility] Additional Instructions Call your primary urologist to schedule a follow-up appointment. Continue all other medications as prescribed. Drink plenty clear liquids. Return to the emergency Department immediately if symptoms change worsen or the need arises. Problem Qualifiers Additional Impressions: Hematuria Hematuria type: unspecified type Qualified Codes: R31.9 - Hematuria, unspecified
[2017-03-21] MEDS ORDERED: NITROFURANTOIN MONOHYDRATE 100 MG CAP PO ONE (13:15)
[2017-03-21] MEDS ORDERED: NITR-5 PO (13:16)
[2017-03-21] MEDS ORDERED: NYST80OI TOP (13:16)
[2017-03-21 13:31] VITALS: BP 178/94; PULSE 71; O2SAT 93
== END 2017-03-21 13:32 | disposition home or self-care (01) ==
LOC: C.EDB 11:38
DX: N30.91 Cystitis, unspecified with hematuria (principal); N48.1 Balanitis; I10 Essential (primary) hypertension; E11.9 Type 2 diabetes mellitus without complications; Z79.82 Long term (current) use of aspirin; Z79.84 Long term (current) use of oral hypoglycemic drugs

== ENCOUNTER 2017-06-01 17:53 | Emergency (ER) | payer OTHER ==
[~2017-06-01] VITALS: Ht 182.9 cm; Wt 138.0 kg
[~2017-06-01 17:53] MED LIST changes: -AMOX875T PO; +NITR-5 PO; +NYST80OI TOP; +SITA100T3 PO; -SITA50TA3 PO
[2017-06-01 17:59] VITALS: Ht 182.9 cm; Wt 138.0 kg
[2017-06-01] MEDS ORDERED: SODIUM CHLORIDE 0.9% 1000ML 1,000 ML IV STA (18:09)
[2017-06-01] MEDS ORDERED: OXYCODONE HCL IR 5 MG TAB (IMMEDIATE RELEASE) PO STA (18:09)
[2017-06-01] MEDS ORDERED: ONDANSETRON INJ 2 MG/ML 2 ML VIAL IV STA (18:09)
--- NOTE | 2017-06-01 18:36 | EMERGENCY ROOM VISIT NOTE ---
History Report prepared by Jose Miguel: Gayatri Devine Under the Supervision of: Dr. Adiel Vidal D.O. First contact with patient: 18:02 Chief Complaint: URINARY SYMPTOMS Stated Complaint: UTI - PAIN, BURNING, SEVERE INCONTANENCE, BROCK, DIZZ History of Present Illness The patient is a 71 year old male who presents to the Emergency Room with complaints of persistent urinary symptoms that began 2 days ago. He reports that he began passing stones 2 days ago, noting that since then he has been experiencing headaches, pain/burning with urination, some blood clots in his urine, and frequent urination. The patient states that he has been urinating every 10-15 minutes, noting he had to start wearing diapers earlier today because he was having difficulties making it to the bathroom on time. He denies any fevers, chills, rashes, or swelling in his groin/penis. The patient states that he has been taking pain relieving medication, which has not been relieving his discomfort. He notes that last summer he was diagnosed with a 3 x 2 cm bladder stone, which was not broken down. The patient states that Dr. Stacy Dejesus is his urologist, but has not seen her in about 3 years. He denies being on any blood thinners. Source of History: patient Onset: 2 days ago Position: other (Genitourinary ) Quality: other (urinary symptoms) Timing: other (persistent) Associated Symptoms: + headache, No fevers, No chills, No rash Note: Associated symptoms include: pain/burning with urination, some blood clots in his urine, and frequent urination Patient denies: swelling in his groin/penis Review of Systems See HPI for pertinent positives & negatives. A total of 10 systems reviewed and were otherwise negative. Past Medical & Surgical Medical Problems: (1) Benign hypertension (2) Diabetes mellitus type 2 (3) Esophagitis (4) Pneumonia Family History Unobtainable family history due to adoption Social History Smoking Status: Never Smoker Alcohol Use: none Drug Use: none Marital Status: Housing Status: lives with significant other Occupation Status: employed Current/Historical Medications Scheduled Acetaminophen (Tylenol Arthritis Ext Rel), 650 MG PO Q8H Aspirin Enteric Coated (Ecotrin Or Generic), 325 MG PO TID Cefdinir (Omnicef), 300 MG PO Q12H Clonidine Hcl ([id number]-Bno-6), 1 PATCH TOP WK Cranberry (Vaccinium Macrocarp (Azo-Cranberry), 450 MG PO BID Enalapril (Vasotec), 5 MG PO DAILY Glyburide (Micronase), 10 MG PO BID Nystatin (Nystatin Cream), 0 EXT TID Pantoprazole (Protonix), 40 MG PO DAILY Sitagliptin Phosphate (Januvia), 100 MG PO DAILY Triamterene/Hctz (Dyazide 37.5MG/25MG), 1 TAB PO DAILY Scheduled PRN Nitrofurantoin Monohyd Macrocr (Macrobid), 100 MG PO BID PRN for URINARY SYMPTOMS Phenazopyridine HCl (Azo Urinary Pain Relief), 95 MG PO BID PRN for URINARY SYMPTOMS Allergies Coded Allergies: Ciprofloxacin (Verified Allergy, Intermediate, cramping/nausea, 06/01/17) Physical Exam Vital Signs Date Time Temp Pulse Resp B/P (MAP) Pulse Ox O2 Delivery O2 Flow Rate FiO2 06/01/17 20:57 36.4 63 14 174/87 95 06/01/17 20:48 63 06/01/17 19:12 65 14 181/95 95 Room Air 06/01/17 18:32 66 13 170/86 95 Room Air 06/01/17 17:59 36.4 77 20 221/78 96 Room Air Physical Exam GENERAL: Patient is awake, alert, and in no acute distress. Patient is resting comfortably and showing no signs of anxiety EYES: The conjunctivae are clear. The pupils are round and reactive. EARS, NOSE, MOUTH AND THROAT: The nose is without any evidence of any deformity. Mucous membranes are moist tongue is midline NECK: The neck is nontender and supple. RESPIRATORY: Normal respiratory effort is noted there is no evidence of wheezing rhonchi or rales CARDIOVASCULAR: Regular rate and rhythm noted there no murmurs rubs or gallops normal S1 normal S2 GASTROINTESTINAL: Abdomen is mildly distended but soft. Mild suprapubic tenderness with palpations. No rigidity or guarding. Bowel sounds are present in all quadrants. BACK: No midline tenderness or or step-off noted range of motion in flexion extension as well as rotation no signs of muscle spasm noted MUSCULOSKELETAL/EXTREMITIES: There is no evidence of gross deformity full range of motion is noted in the hips and shoulders SKIN: There is no obvious evidence of any rash. There are no petechiae, pallor or cyanosis noted. NEUROLOGIC: Patient is awake alert and oriented x3 Medical Decision & Procedures ER Provider Diagnostic Interpretation: Radiology results as stated below per my review and radiologist interpretation: ABD/PELVIS NO IV OR ORAL CONT CLINICAL HISTORY: 71 years-old Male presenting with hx of bladder stone, UTI S/S. TECHNIQUE: Multidetector CT of the abdomen and pelvis was performed without the use of intravenous contrast. IV contrast: None. A dose lowering technique was used consistent with the principles of ALARA (as low as reasonably achievable). COMPARISON: 11/01/2016. CT DOSE (mGy.cm): The estimated cumulative dose is 2105.65 mGy.cm. 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 Lung bases: Minimal basilar opacities, likely atelectasis. Cystic change versus emphysema in the right lower lobe. Normal heart size. No pericardial or pleural effusion. Liver: Normal morphology. Density consistent with hepatic steatosis. Biliary: No gross biliary ductal dilatation allowing for noncontrast technique. Normal gallbladder. Pancreas: Moderate parenchymal atrophy. Spleen: Hypodensity with minimal peripheral calcification in the medial aspect of the spleen, measuring 2.2 cm, possibly pseudocyst from prior trauma. Adrenal glands: Normal noncontrast appearance. Kidneys and ureters: Mild nonspecific perinephric fat stranding. No nephrolithiasis. No hydronephrosis. Exophytic small hyperdensity arising from the interpolar region of the right kidney (series 3 image 188), indeterminate but unchanged, possibly hemorrhagic or proteinaceous cyst. Ureters normal. Bladder: Large bladder calculus has increased in size. The bladder is incompletely distended but is mildly thick-walled with vague perivesicular fat stranding. Pelvic organs: Prostate enlargement likely secondary to benign prostatic hyperplasia. Bowel: Diverticulosis of the proximal sigmoid colon. No pericolonic fat stranding. The appendix is normal. No bowel obstruction. Peritoneal cavity: No free fluid or intraperitoneal gas. Lymph nodes: Few scattered subcentimeter retroperitoneal lymph nodes, likely reactive. Vasculature: Atherosclerosis of the normal caliber abdominal aorta. Abdominal wall: Small bowel containing ventral hernia at the umbilicus. No obstruction, associated fat stranding, or fluid to suggest strangulation. Musculoskeletal: Degenerative changes of the spine. IMPRESSION: 1. Interval increase in size of the large bladder calculus. Associated chronic inflammatory/reactive changes of the prostate as well as chronic bladder outlet obstruction secondary to prostatomegaly. 2. Diverticulosis without evidence of diverticulitis. 3. Small bowel containing umbilical hernia. No obstruction. 4. Indeterminate hyperdense lesion in the right kidney, unchanged but possibly hemorrhagic or pertinacious cyst. It is difficult to exclude a solid renal neoplasm. Electronically signed by: Aristides Roman M.D. 06/01/2017 7:18 PM Dictated Date/Time: 06/01/2017 7:11 PM Laboratory Results 06/01/17 18:48 Red Blood Count 4.50, Mean Corpuscular Volume 86.4, Mean Corpuscular Hemoglobin 28.0, Mean Corpuscular Hemoglobin Concent 32.4, Mean Platelet Volume 11.0, Neutrophils (%) (Auto) 71.7, Lymphocytes (%) (Auto) 19.6, Monocytes (%) (Auto) 6.8, Eosinophils (%) (Auto) 1.6, Basophils (%) (Auto) 0.2, Neutrophils # (Auto) 6.27, Lymphocytes # (Auto) 1.72, Monocytes # (Auto) 0.60, Eosinophils # (Auto) 0.14, Basophils # (Auto) 0.02 06/01/17 18:48 Test 06/01/17 18:25 06/01/17 18:48 Urine Color ORANGE Urine Appearance CLEAR (CLEAR) Urine pH (4.5-7.5) Urine Specific [place] 1.022 (1.000-1.030) Urine Protein (NEG) Urine Glucose (UA) (NEG) Urine Ketones (NEG) Urine Occult Blood (NEG) Urine Nitrite (NEG) Urine Bilirubin (NEG) Urine Urobilinogen (NEG) Urine Leukocyte Esterase (NEG) Urine RBC >30 /hpf (0-4) Urine WBC >30 /hpf (0-5) Urine Epithelial Cells 5-10 /lpf (0-5) Urine Bacteria 1+ (NEG) White Blood Count 8.76 K/uL (4.8-10.8) Red Blood Count 4.50 M/uL (4.7-6.1) Hemoglobin 12.6 g/dL (14.0-18.0) Hematocrit 38.9 % (42-52) Mean Corpuscular Volume 86.4 fL (80-100) Mean Corpuscular Hemoglobin 28.0 pg (25-34) Mean Corpuscular Hemoglobin Concent 32.4 g/dl (32-36) Platelet Count 153 K/uL (130-400) Mean Platelet Volume 11.0 fL (7.4-10.4) Neutrophils (%) (Auto) 71.7 % Lymphocytes (%) (Auto) 19.6 % Monocytes (%) (Auto) 6.8 % Eosinophils (%) (Auto) 1.6 % Basophils (%) (Auto) 0.2 % Neutrophils # (Auto) 6.27 K/uL (1.4-6.5) Lymphocytes # (Auto) 1.72 K/uL (1.2-3.4) Monocytes # (Auto) 0.60 K/uL (0.11-0.59) Eosinophils # (Auto) 0.14 K/uL (0-0.5) Basophils # (Auto) 0.02 K/uL (0-0.2) RDW Standard Deviation 51.2 fL (36.4-46.3) RDW Coefficient of Variation 16.0 % (11.5-14.5) Immature Granulocyte % (Auto) 0.1 % Immature Granulocyte # (Auto) 0.01 K/uL (0.00-0.02) Prothrombin Time 10.1 SECONDS (9.0-12.0) Prothromb Time International Ratio 1.0 (0.9-1.1) Activated Partial Thromboplast Time 24.7 SECONDS (21.0-31.0) Partial Thromboplastin Ratio 1.0 Anion Gap 5.0 mmol/L (3-11) Est Creatinine Clear Calc Drug Dose 71.2 ml/min Estimated GFR () 59.1 Estimated GFR (Non- 51.0 BUN/Creatinine Ratio 18.2 (10-20) Calcium Level 9.2 mg/dl (8.5-10.1) Total Bilirubin 0.4 mg/dl (0.2-1) Direct Bilirubin < 0.1 mg/dl (0-0.2) Aspartate Amino Transf (AST/SGOT) 21 U/L (15-37) Alanine Aminotransferase (ALT/SGPT) 32 U/L (12-78) Alkaline Phosphatase 85 U/L (45-117) Total Protein 7.9 gm/dl (6.4-8.2) Albumin 3.6 gm/dl (3.4-5.0) Lipase 136 U/L (73-393) Laboratory results per my review. Medications Administered Medications (Trade) Dose Ordered Sig/Mikey Route Start Time Stop Time Status Last Admin Dose Admin Sodium Chloride 1,000 ml @ 999 mls/hr Q1H1M STAT IV 06/01/17 18:09 06/01/17 19:09 DC 06/01/17 18:49 999 MLS/HR Ondansetron HCl (Zofran Inj) 4 mg NOW STAT IV 06/01/17 18:09 06/01/17 18:10 DC 06/01/17 18:48 4 MG Oxycodone HCl (Roxicodone Immediate Rel Tab) 5 mg NOW STAT PO 06/01/17 18:09 06/01/17 18:10 DC 06/01/17 18:43 5 MG Ceftriaxone Sodium (Rocephin Inj) 1 gm NOW STAT IV 06/01/17 19:25 06/01/17 19:26 DC 06/01/17 19:36 1 GM Phenazopyridine HCl (Phenazopyridine HCl 200MG Home Pack) 1 homepack UD ONCE PO 06/01/17 20:00 06/01/17 20:01 DC 06/01/17 20:03 1 HOMEPACK Phenazopyridine HCl (Pyridium Tab) 200 mg NOW STAT PO 06/01/17 19:57 06/01/17 19:58 DC 06/01/17 20:02 200 MG Oxycodone HCl (Roxicodone Immediate Rel 5MG Home Pack) 1 homepack UD ONCE PO 06/01/17 20:00 06/01/17 20:01 DC 06/01/17 20:03 1 HOMEPACK ED Course 1803: The patient was evaluated in room C7. A complete history and physical examination were performed. 1808: Ordered Oxycodone HCL 5mg PO, Zofran Inj 4mg Iv, and Sodium Chloride 1000ml @ 999mls/hr IV. 1924: Ordered Rocephin Inj 1gm IV. 1940: Talked to telehealth case manager about finding a urologist for the patient and setting up an appointment for him. 1941: I reevaluated the patient, who was resting. I discussed test findings and the treatment plan. He verbalized complete understanding and agreement. The patient will follow up with urology. He will be discharged soon. 2013: The patient will either follow up with Dr. Phelan and Dr. Dejesus (urology ), depending on appointment availability. Medical Decision Prior records/ancillary studies reviewed. Triage Nursing notes reviewed. Additional history obtained from patient's significant other. The patient's history was concerning for abdominal pain. Differential diagnosis: Etiologies such as renal colic, appendicitis, diverticulitis, mesenteric ischemia, aortic pathology, infections, inflammatory bowel disease, PUD, biliary pathology, UTI, as well as others were entertained. The patient is a 71-year-old male who presented to the emergency department for an evaluation of dysuria and frequency. The patient has a history of a large bladder stone. He states that he is also been passing some stones in his urine. The patient was treated with IV fluids IV antibiotics. I discussed the patient's laboratory and radiographic studies with him. At this time I feel it is likely he is starting to break apart the bladder stone but also may have an infection in the prostate or the urine or possibly both. The patient was feeling much better on subsequent reevaluation. I discussed patient's laboratory and radiographic studies with him. I discussed his case with the emergency department telehealth case manager. I recommended that they help the patient set up an appointment with his urologist for the next few days. He was started on antibiotic. He was encouraged to drink plenty clear liquids and continue all medications as prescribed. He was also encouraged to return to the emergency department immediately if symptoms change worsen or the need arises. Medication Reconcilliation Current Medication List: was personally reviewed by me Blood Pressure Screening Patient's blood pressure: Elevated blood pressure Blood pressure disposition: Elevated BP felt to be situational Impression Primary Impression: Prostatitis Additional Impressions: Bladder stone Cystitis Scribe Attestation The scribe's documentation has been prepared under my direction and personally reviewed by me in its entirety. I confirm that the note above accurately reflects all work, treatment, procedures, and medical decision making performed by me. Departure Information Dispostion Home / Self-Care Prescriptions Cefdinir (Omnicef) 300 Mg Cap 300 MG PO Q12H, #14 CAP Prov: Adiel Vidal, 06/01/17 Referrals Roe Hayes M.D. (PCP) Forms HOME CARE DOCUMENTATION FORM, IMPORTANT VISIT INFORMATION Patient Instructions My [facility] Additional Instructions Call the urologist in the morning to schedule a follow-up appointment for soon as possible. Continue all medications as prescribed. Drink plenty clear liquids. Return to the emergency department if symptoms change worsen or the need arises. The will likely need to have something done with the large bladder stone. Also discussed the mass it was noted on your kidney with the urologist. This is unchanged from previous but will still need to be followed up. Problem Qualifiers Primary Impression: Prostatitis Prostatitis type: acute Qualified Codes: N41.0 - Acute prostatitis
[2017-06-01 18:56] LABS: BASO % 0.2 %; BASO ABS # 0.02 K/uL (0-0.2); EOS % 1.6 %; EOS ABS # 0.14 K/uL (0-0.5); HEMATOCRIT 38.9 % (42-52); HEMOGLOBIN 12.6 g/dL (14.0-18.0); IG# 0.01 K/uL (0.00-0.02); LYMPH % 19.6 %; LYMPH ABS # 1.72 K/uL (1.2-3.4); MEAN CELL VOLUME 86.4 fL (80-100); MEAN CORPUSCULAR HGB CONC 32.4 g/dl (32-36); MONO % 6.8 %; NEUT % 71.7 %; NEUT ABS # 6.27 K/uL (1.4-6.5); PLATELET COUNT 153 K/uL (130-400); RED CELL DISTRIBUTION WIDTH SD 51.2 fL (36.4-46.3); WHITE BLOOD COUNT 8.76 K/uL (4.8-10.8)
[2017-06-01 19:07] LABS: PTT PATIENT 24.7 SECONDS (21.0-31.0)
[2017-06-01] MEDS ORDERED: NITR-5 PO (19:08)
[2017-06-01] MEDS ORDERED: NYSCR30 EXT (19:08)
[2017-06-01 19:12] LABS: ALBUMIN 3.6 gm/dl (3.4-5.0); ALT/SGPT 32 U/L (12-78); BLOOD UREA NITROGEN 25 mg/dl (7-18); CALCIUM 9.2 mg/dl (8.5-10.1); CARBON DIOXIDE 31 mmol/L (21-32); CREATININE 1.39 mg/dl (0.60-1.40); GLUCOSE 203 mg/dl (70-99); LIPASE 136 U/L (73-393); SODIUM 137 mmol/L (136-145)
[2017-06-01 19:15] LABS: ALKALINE PHOSPHATASE 85 U/L (45-117); AST/SGOT 21 U/L (15-37); TOTAL PROTEIN 7.9 gm/dl (6.4-8.2)
--- NOTE | 2017-06-01 19:19 | DIAGNOSTIC IMAGING REPORT ---
ABD/PELVIS NO IV OR ORAL CONT CLINICAL HISTORY: 71 years-old Male presenting with hx of bladder stone, UTI S/S. TECHNIQUE: Multidetector CT of the abdomen and pelvis was performed without the use of intravenous contrast. IV contrast: None. A dose lowering technique was used consistent with the principles of ALARA (as low as reasonably achievable). COMPARISON: 11/01/2016. CT DOSE (mGy.cm): The estimated cumulative dose is 2105.65 mGy.cm. 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 Lung bases: Minimal basilar opacities, likely atelectasis. Cystic change versus emphysema in the right lower lobe. Normal heart size. No pericardial or pleural effusion. Liver: Normal morphology. Density consistent with hepatic steatosis. Biliary: No gross biliary ductal dilatation allowing for noncontrast technique. Normal gallbladder. Pancreas: Moderate parenchymal atrophy. Spleen: Hypodensity with minimal peripheral calcification in the medial aspect of the spleen, measuring 2.2 cm, possibly pseudocyst from prior trauma. Adrenal glands: Normal noncontrast appearance. Kidneys and ureters: Mild nonspecific perinephric fat stranding. No nephrolithiasis. No hydronephrosis. Exophytic small hyperdensity arising from the interpolar region of the right kidney (series 3 image 188), indeterminate but unchanged, possibly hemorrhagic or proteinaceous cyst. Ureters normal. Bladder: Large bladder calculus has increased in size. The bladder is incompletely distended but is mildly thick-walled with vague perivesicular fat stranding. Pelvic organs: Prostate enlargement likely secondary to benign prostatic hyperplasia. Bowel: Diverticulosis of the proximal sigmoid colon. No pericolonic fat stranding. The appendix is normal. No bowel obstruction. Peritoneal cavity: No free fluid or intraperitoneal gas. Lymph nodes: Few scattered subcentimeter retroperitoneal lymph nodes, likely reactive. Vasculature: Atherosclerosis of the normal caliber abdominal aorta. Abdominal wall: Small bowel containing ventral hernia at the umbilicus. No obstruction, associated fat stranding, or fluid to suggest strangulation. Musculoskeletal: Degenerative changes of the spine. IMPRESSION: 1. Interval increase in size of the large bladder calculus. Associated chronic inflammatory/reactive changes of the prostate as well as chronic bladder outlet obstruction secondary to prostatomegaly. 2. Diverticulosis without evidence of diverticulitis. 3. Small bowel containing umbilical hernia. No obstruction. 4. Indeterminate hyperdense lesion in the right kidney, unchanged but possibly hemorrhagic or pertinacious cyst. It is difficult to exclude a solid renal neoplasm. Electronically signed by: Aristides Roman M.D. 06/01/2017 7:18 PM Dictated Date/Time: 06/01/2017 7:11 PM
[2017-06-01] MEDS ORDERED: CEFTRIAXONE SOD INJ 1 GM ADDVIAL IV STA (19:25)
[2017-06-01] MEDS ORDERED: PHENAZOPYRIDINE HCL 200 MG TAB PO STA (19:57)
[2017-06-01] MEDS ORDERED: OXYCODONE IR HOME PACK PO ONE (20:00)
[2017-06-01] MEDS ORDERED: PHENAZOPYRIDINE HOME PACK 200 MG VIAL PO ONE (20:00)
[2017-06-01] MEDS ORDERED: CEFD1CAP14 PO (20:18)
[2017-06-01 20:57] VITALS: BP 174/87; PULSE 63; TEMP 36.4; O2SAT 95
== END 2017-06-01 20:58 | disposition home or self-care (01) ==
LOC: C.EDB 17:54 → C.EDC 20:58
DX: N21.0 Calculus in bladder (principal); N41.3 Prostatocystitis; I10 Essential (primary) hypertension; E11.9 Type 2 diabetes mellitus without complications; Z79.82 Long term (current) use of aspirin; Z79.84 Long term (current) use of oral hypoglycemic drugs; Z88.1 Allergy status to other antibiotic agents

== ENCOUNTER 2017-06-07 08:53 | Inpatient (IN) | payer OTHER ==
[~2017-06-07] VITALS: Ht 182.9 cm; Wt 137.0 kg
[~2017-06-07 08:53] MED LIST changes: +CEFD1CAP14 PO; +NYSCR30 EXT; -NYST80OI TOP
[2017-06-07] MEDS ORDERED: SODIUM CHLORIDE 0.9% 1000ML 1,000 ML IV ONE ×2 (09:17→12:45)
[2017-06-07] MEDS ORDERED: CEFTRIAXONE SOD INJ 1 GM ADDVIAL IV STA (09:17)
[2017-06-07] MEDS ORDERED: SODIUM CHLORIDE 0.9% 1000ML 1,000 ML IV STA (09:17)
--- NOTE | 2017-06-07 09:18 | EMERGENCY ROOM VISIT NOTE ---
History Report prepared by Jose Miguel: Modesto Kwok Under the Supervision of: Dr. Celso Villarreal M.D. First contact with patient: 09:09 Chief Complaint: URINARY SYMPTOMS Stated Complaint: UTI, SEVERE BURNING, PAIN, URGENCY, WEAKNESS Nursing Triage Summary: Pt states seen here last Sun, dx with UTI. Pt states, "It's just not any better. During the night last night I had fever/chills. I was here before with e.coli and went unconscious." Denies back pain. History of Present Illness The patient is a 71 year old male with a history of E.coli and UTI's who presents to the Emergency Room with complaints of persistent urinary symptoms that started a week ago. He states that he was seen here 6 days ago and was diagnosed with a UTI. The patient says that he has a lot of bladder pain, in addition to burning with urination and an increased frequency of urination. He notes no blood in his urine. The patient adds that overnight he felt feverish with chills, sweats, and shakes. The patient denies any back pain, chest pain, shortness of breath, or leg swelling. He notes that he is not on any blood thinners, and has not had any recent abdominal trauma. The patient states that he was seen here for prostatitis a week ago, and was put on an antibiotic but stopped it 3 days ago due to adverse symptoms. He has an appointment with Dr. Phelan of urology next week. Source of History: patient, spouse/significant other Onset: A week ago Position: other (global) Symptom Intensity: burning with urination, increased frequency, no blood Quality: other (urinary symptoms) Timing: other (persistent) Associated Symptoms: + fevers, + chills, + diaphoresis, No chest pain, No SOB, No back pain Review of Systems See HPI for pertinent positives & negatives. A total of 10 systems reviewed and were otherwise negative. Past Medical & Surgical Medical Problems: (1) Benign hypertension (2) Bladder calculus (3) Diabetes mellitus type 2 (4) Esophagitis (5) Pneumonia Old medical records were reviewed. Nurse's notes were reviewed and I agree with. Family History Unobtainable family history due to adoption Social History Smoking Status: Never Smoker Alcohol Use: none Drug Use: none Marital Status: Housing Status: lives with significant other Occupation Status: employed Current/Historical Medications Scheduled Acetaminophen (Tylenol Arthritis Ext Rel), 650 MG PO Q8H Aspirin Enteric Coated (Ecotrin Or Generic), 325 MG PO TID Clonidine Hcl ([id number]), 1 PATCH TOP WK Cranberry (Vaccinium Macrocarp (Azo-Cranberry), 450 MG PO BID Enalapril (Vasotec), 5 MG PO DAILY Glyburide (Micronase), 10 MG PO BID Nystatin (Nystatin Cream), 0 EXT TID Pantoprazole (Protonix), 40 MG PO DAILY Sitagliptin Phosphate (Januvia), 100 MG PO DAILY Triamterene/Hctz (Dyazide 37.5MG/25MG), 1 TAB PO DAILY Scheduled PRN Nitrofurantoin Monohyd Macrocr (Macrobid), 100 MG PO BID PRN for URINARY SYMPTOMS Phenazopyridine HCl (Azo Urinary Pain Relief), 95 MG PO BID PRN for URINARY SYMPTOMS Allergies Coded Allergies: Ciprofloxacin (Verified Allergy, Intermediate, cramping/nausea, 06/07/17) Physical Exam Vital Signs Date Time Temp Pulse Resp B/P (MAP) Pulse Ox O2 Delivery O2 Flow Rate FiO2 06/07/17 12:11 85 18 179/85 95 Nasal Cannula 2.0 06/07/17 10:47 68 18 166/116 95 Room Air 06/07/17 08:57 36.4 94 16 191/92 93 Room Air Physical Exam General: Non-ill appearing older male in no acute distress. HEENT: Normal cephalic atraumatic. Pupils are equal round and reactive to light. Extraocular movements are intact. Oropharynx is pink with moist mucous membranes. No swelling of the mouth lips or tongue. Neck: Supple with a midline trachea. No meningeal signs or stiffness, no JVD or bruits. No Stridor. Chest: Clear to auscultation bilaterally. No wheezes or rhonchi. No increased work of breathing. Heart: regular rate and rhythm. Abdomen: Soft nontender, nondistended without rebound guarding or rigidity. Extremities: No cyanosis clubbing or edema. No calf tenderness or assymetry Spine/Back. Non tender to palpation. No CVA tenderness Skin: Good turgor without rashes. Neurologic exam: Cranial nerves two through 12 are intact. Motor and sensation are intact and symmetrical throughout. Medical Decision & Procedures Laboratory Results 06/07/17 09:30 Red Blood Count 4.85, Mean Corpuscular Volume 86.4, Mean Corpuscular Hemoglobin 27.8, Mean Corpuscular Hemoglobin Concent 32.2, Mean Platelet Volume 11.6, Neutrophils (%) (Auto) 77.4, Lymphocytes (%) (Auto) 9.2, Monocytes (%) (Auto) 10.6, Eosinophils (%) (Auto) 2.2, Basophils (%) (Auto) 0.3, Neutrophils # (Auto ) 5.53, Lymphocytes # (Auto) 0.66, Monocytes # (Auto) 0.76, Eosinophils # (Auto ) 0.16, Basophils # (Auto) 0.02 06/07/17 09:30 Test 06/07/17 09:10 06/07/17 09:30 06/07/17 09:40 06/07/17 11:54 Urine Color DK YELLOW Urine Appearance CLEAR (CLEAR) Urine pH 6.0 (4.5-7.5) Urine Specific [place] 1.024 (1.000-1.030) Urine Protein 1+ (NEG) Urine Glucose (UA) 2+ (NEG) Urine Ketones NEG (NEG) Urine Occult Blood 2+ (NEG) Urine Nitrite POS (NEG) Urine Bilirubin NEG (NEG) Urine Urobilinogen NEG (NEG) Urine Leukocyte Esterase SMALL (NEG) Urine WBC (Auto) 5-10 /hpf (0-5) Urine RBC (Auto) 10-30 /hpf (0-4) Urine Hyaline Casts (Auto) 1-5 /lpf (0-5) Urine Epithelial Cells (Auto) >30 /lpf (0-5) Urine Bacteria (Auto) NEG (NEG) Urine Renal Epithelial Cells /lpf (0-5) White Blood Count 7.15 K/uL (4.8-10.8) Red Blood Count 4.85 M/uL (4.7-6.1) Hemoglobin 13.5 g/dL (14.0-18.0) Hematocrit 41.9 % (42-52) Mean Corpuscular Volume 86.4 fL (80-100) Mean Corpuscular Hemoglobin 27.8 pg (25-34) Mean Corpuscular Hemoglobin Concent 32.2 g/dl (32-36) Platelet Count 147 K/uL (130-400) Mean Platelet Volume 11.6 fL (7.4-10.4) Neutrophils (%) (Auto) 77.4 % Lymphocytes (%) (Auto) 9.2 % Monocytes (%) (Auto) 10.6 % Eosinophils (%) (Auto) 2.2 % Basophils (%) (Auto) 0.3 % Neutrophils # (Auto) 5.53 K/uL (1.4-6.5) Lymphocytes # (Auto) 0.66 K/uL (1.2-3.4) Monocytes # (Auto) 0.76 K/uL (0.11-0.59) Eosinophils # (Auto) 0.16 K/uL (0-0.5) Basophils # (Auto) 0.02 K/uL (0-0.2) RDW Standard Deviation 50.5 fL (36.4-46.3) RDW Coefficient of Variation 15.9 % (11.5-14.5) Immature Granulocyte % (Auto) 0.3 % Immature Granulocyte # (Auto) 0.02 K/uL (0.00-0.02) Anion Gap 7.0 mmol/L (3-11) Est Creatinine Clear Calc Drug Dose 75.2 ml/min Estimated GFR () 63.5 Estimated GFR (Non- 54.8 BUN/Creatinine Ratio 15.6 (10-20) Calcium Level 9.3 mg/dl (8.5-10.1) Total Bilirubin 0.5 mg/dl (0.2-1) Direct Bilirubin 0.1 mg/dl (0-0.2) Aspartate Amino Transf (AST/SGOT) 24 U/L (15-37) Alanine Aminotransferase (ALT/SGPT) 35 U/L (12-78) Alkaline Phosphatase 86 U/L (45-117) Total Protein 8.0 gm/dl (6.4-8.2) Albumin 3.6 gm/dl (3.4-5.0) Lipase 135 U/L (73-393) Bedside Lactic Acid Venous 2.25 mmol/L (0.90-1.70) Lactic Acid Level 0.9 mmol/L (0.4-2.0) Laboratory studies as stated above per my review. Medications Administered Medications (Trade) Dose Ordered Sig/Mikey Route Start Time Stop Time Status Last Admin Dose Admin Ceftriaxone Sodium (Rocephin Inj) 1 gm NOW STAT IV 3/31/18 09:17 06/07/17 09:20 DC 06/07/17 09:55 1 GM Sodium Chloride 1,000 ml @ 999 mls/hr Q1H1M STAT IV 06/07/17 09:17 06/07/17 10:17 DC 06/07/17 09:55 999 MLS/HR Sodium Chloride 1,000 ml @ 150 mls/hr Q6H40M ONCE IV 06/07/17 09:17 06/07/17 14:01 DC 06/07/17 09:17 150 MLS/HR Ondansetron HCl (Zofran Inj) 4 mg NOW STAT IV 06/07/17 10:54 06/07/17 10:55 DC 06/07/17 11:02 4 MG Morphine Sulfate (MoRPHine SULFATE INJ) 2 mg NOW STAT IV 06/07/17 10:54 06/07/17 10:55 DC 06/07/17 11:03 2 MG ED Course 0911: Past medical records reviewed. The patient was evaluated in room B11B, and a complete history and physical examination were performed. 0917: NSS 1000 ml @ 150 mls/hr IV, NSS 1000 ml @ 999 mls/hr IV, Rocephin Inj 1 gm IV. 1013: The patient is in the bathroom. 1052: Upon reevaluation, the patient is complaining of pain and I will give him Morphine. I discussed the results and treatment plan with the patient. He verbalized agreement of the treatment plan. The patient will be evaluated for further management. 1054: Morphine Sulfate Inj 2 mg IV, Zofran Inj 4 mg IV. 1105: Discussed the patient's case with Dr. Jonathon Blake social worker. The patient will be evaluated for further management. Medical Decision Differentials include, but are not limited to; prostatitis, sepsis, UTI, electrolyte or metabolic abnormality. This patient comes in as described above. He was placed in room B 11. Here for treatment and evaluation of urinary symptoms. He has a history of prostate disease he had chills last night and was treated for prostatitis recently with Keflex. He is allergic this Cipro. He had a CAT scan done about 5 days ago which showed a large bladder calculi with some obstructive bladder changes and inflammation the prostate. IV access was established was hydrated normal saline. Blood cultures were obtained as well as lactic acid. He was given Rocephin 1 g IV. Urinalysis was obtained. He was reassessed frequently. He did require pain medications given IV morphine 2 mg and Zofran 4 mg IV. His white count was not elevated however his lactic acid was mildly elevated. His blood sugar is moderately elevated but no other significant electrolyte metabolic abnormalities. I do think this is likely prostatitis. A CAT scan a couple days ago which I do not think needs to be repeated at this point. he's been covered with IV antibiotics and will admit him for further treatment and evaluation, I did consult the hospitalist. Medication Reconcilliation Current Medication List: was personally reviewed by me Blood Pressure Screening Patient's blood pressure: Elevated blood pressure Referred to hospitalist. Consults Time Called: 1100 Consulting Physician: Dr. Jonathon Blake social worker Returned Call: 1105 Discussed the patient's case with Dr. Jonathon Blake social worker. The patient will be evaluated for further management. Impression Primary Impression: Prostatitis Scribe Attestation The scribe's documentation has been prepared under my direction and personally reviewed by me in its entirety. I confirm that the note above accurately reflects all work, treatment, procedures, and medical decision making performed by me. Departure Information Dispostion Being Evaluated By Hospitalist Referrals Roe Hayes M.D. (PCP) Patient Instructions My [facility]
[2017-06-07 10:05] LABS: BASO % 0.3 %; BASO ABS # 0.02 K/uL (0-0.2); EOS % 2.2 %; EOS ABS # 0.16 K/uL (0-0.5); HEMATOCRIT 41.9 % (42-52); HEMOGLOBIN 13.5 g/dL (14.0-18.0); IG# 0.02 K/uL (0.00-0.02); LYMPH % 9.2 %; LYMPH ABS # 0.66 K/uL (1.2-3.4); MEAN CELL VOLUME 86.4 fL (80-100); MEAN CORPUSCULAR HEMOGLOBIN 27.8 pg (25-34); MEAN CORPUSCULAR HGB CONC 32.2 g/dl (32-36); MEAN PLATELET VOLUME 11.6 fL (7.4-10.4); MONO % 10.6 %; MONO ABS # 0.76 K/uL (0.11-0.59); NEUT % 77.4 %; NEUT ABS # 5.53 K/uL (1.4-6.5); PLATELET COUNT 147 K/uL (130-400); RED CELL DISTRIBUTION WIDTH CV 15.9 % (11.5-14.5); RED CELL DISTRIBUTION WIDTH SD 50.5 fL (36.4-46.3); WHITE BLOOD COUNT 7.15 K/uL (4.8-10.8)
[2017-06-07 10:25] LABS: ALBUMIN 3.6 gm/dl (3.4-5.0); CALCIUM 9.3 mg/dl (8.5-10.1); CREATININE 1.31 mg/dl (0.60-1.40)
[2017-06-07] MEDS ORDERED: ONDANSETRON INJ 2 MG/ML 2 ML VIAL IV STA (10:54)
[2017-06-07] MEDS ORDERED: MoRPHine SULFATE 2 MG/ML CARP IV STA (10:54)
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
[2017-06-07] MEDS ORDERED: ACETAMINOPHEN 325 MG TAB PO PRN (12:45)
[2017-06-07] MEDS ORDERED: ONDANSETRON INJ 2 MG/ML 2 ML VIAL IV PRN (12:45)
[2017-06-07] MEDS ORDERED: PHENAZOPYRIDINE HCL 100 MG TAB PO PRN (13:00)
[2017-06-07] MEDS ORDERED: GLUCOSE 10 TABS/TUBE PO PRN (13:00)
[2017-06-07] MEDS ORDERED: GLUCAGON FOR INJ 1 MG VIAL SQ PRN (13:00)
[2017-06-07] MEDS ORDERED: CLONIDINE HCL 0.1 MG TAB PO PRN (13:00)
[2017-06-07] MEDS ORDERED: GLUCOSE 40% GEL 15 GM TUBE PO PRN (13:00)
[2017-06-07] MEDS ORDERED: DEXTROSE 50% 50 ML SYR IV PRN (13:00)
[2017-06-07 13:05] VITALS: O2SAT 92; Ht 182.9 cm; Wt 137.0 kg
[2017-06-07] MEDS ORDERED: PHARMACY GLYCEMIC MGMT CONSULT PRN (13:40)
[2017-06-07 13:45] VITALS: BP 142/74; PULSE 57; TEMP 36.5; O2SAT 92
[2017-06-07] MEDS: SODIUM CHLORIDE 0.9% 1000ML 1,000 ML IV SCH (14:14)
[2017-06-07] MEDS ORDERED: NURSING VERBAL MED ORDER ONE (14:15)
[2017-06-07 14:37] VITALS: O2SAT 92
--- NOTE | 2017-06-07 14:51 | Pharmacy Progress Note ---
Glycemic Control Intl Consult Date of Service Jun 07, 2017. Scope Glycemic Pharmacist consulted by Dr Zazueta on 06/07/17 for glycemic control and to write orders per [facility] inpatient glycemic control protocol Objective Weight (Kilograms): 137.000 Accuchecks BSG (last 24hrs): Test 06/07/17 09:30 Random Glucose 300 mg/dl (70-99) Laboratory Data (last 24hrs) Test 06/07/17 09:30 Anion Gap 7.0 mmol/L BUN/Creatinine Ratio 15.6 Blood Urea Nitrogen 20 mg/dl Creatinine 1.31 mg/dl Potassium Level 4.0 mmol/L Sodium Level 133 mmol/L White Blood Count 7.15 K/uL Red Blood Count 4.85 M/uL Hemoglobin 13.5 g/dL Hematocrit 41.9 % Mean Corpuscular Volume 86.4 fL Mean Corpuscular Hemoglobin 27.8 pg Mean Corpuscular Hemoglobin Concent 32.2 g/dl Platelet Count 147 K/uL Mean Platelet Volume 11.6 fL Neutrophils (%) (Auto) 77.4 % Lymphocytes (%) (Auto) 9.2 % Monocytes (%) (Auto) 10.6 % Eosinophils (%) (Auto) 2.2 % Basophils (%) (Auto) 0.3 % Neutrophils # (Auto) 5.53 K/uL Lymphocytes # (Auto) 0.66 K/uL Monocytes # (Auto) 0.76 K/uL Eosinophils # (Auto) 0.16 K/uL Basophils # (Auto) 0.02 K/uL HbA1c unknown, last A1c outdated Recent Pertinent Medications Outpatient Anti-diabetic Regimen: * Glyburide 10mg PO BIDM * Januvia 100mg PO daily Risk Factors for Insulin Resistance: * Infection * Diet Assessment & Plan ASSESSMENT: * 71yo T2DM male with unknown degree of outpatient control. A1c pending for tomorrow. * Pt is maintained on oral antidiabetic agents as an outpatient * Oral agents are not recommended for inpatient use d/t drug interactions, changing PO intake, and difficulty titrating for acute hyper/hypoglycemia. ADA recommends re-initiating outpatient oral agents 1-2 days prior to discharge if/ when appropriate if they were held on admission. * Will hold oral agents for admission and utilize SQ basal bolus insulin regimen which is the recommended regimen for inpatient glycemic control. * Will initiate weight based insulin dosing for insulin sil patient and titrate based on BSG trends. * Recommending starting dose of basal insulin is 0.2 units/kg (27 units). Since pt is going to be NPO after midnight & he took his AM doses of antidiabetic medications this morning, will start at lowest dosing and titrate based on BSG trends. * GLU in ED was 300 mg/dl therefore moderately aggressive correctional insulin needed for hyperglycemia secondary to infection PLAN FOR INPATIENT GLYCEMIC CONTROL: * Hold outpatient oral diabetes medications * Basal insulin * Lantus 27 units (0.2units/kg) SQ x 1 dose * Bolus insulin: weight and stress of 2 per calc * NovoLog per scale ACHS or Q6hrs while NPO. Additional checks/coverage at 0000 & 0400 to cover hyperglycemia from suboptimal basal insulin dosing above * Goal Range: Low 120 mg/dL - High 140 mg/dL * Correction Factor: 15 mg/dL/unit * Nutritional / Prandial insulin per carb ratio of 1 unit per 5 grams CHO consumed * Please note that the plan above was derived based on current level of insulin resistance and hospital stress. These recommendations are appropriate for inpatient admission only. Plan of care upon discharge will need to be reassessed to avoid potential outpatient hypo/hyperglycemia. Thank you.
[2017-06-07] MEDS: CHECK CLONIDINE PATCH PLACEMENT SCH ×2 (15:03→23:50)
[2017-06-07 15:24] VITALS: BP 145/76; PULSE 52; TEMP 36.9; O2SAT 90
[2017-06-07] MEDS ORDERED: INSULIN GLARGINE SOLOSTAR 100 UNITS/ML 3 ML PEN SC SCH (16:00)
--- NOTE | 2017-06-07 17:52 | DIAGNOSTIC IMAGING REPORT ---
ULTRASOUND KIDNEYS AND BLADDER CLINICAL HISTORY: Renal cyst1. COMPARISON STUDY: Abdominal CT dated 06/01/2017. TECHNIQUE: Real-time, grayscale, and color flow sonography of the kidneys and bladder is performed. Images are reviewed in the transverse and longitudinal planes. FINDINGS: Kidneys: The kidneys are normal in size and echotexture. The right kidney measures 10.7 cm in length and the left kidney measures 10.9 cm in length. There is no hydronephrosis. No shadowing renal calculi are identified. There is no sonographic evidence of solid renal mass lesion. The tiny cystic lesion suggested by CT was not apparent by ultrasound. No perinephric fluid is identified. Bladder: The bladder is decompressed and not evaluated. A large shadowing bladder calculus is identified. Ureteral jets were not seen. IMPRESSION: 1. The kidneys are normal in size and without hydronephrosis. 2. The bladder was decompressed and not assessed. 3. A large shadowing bladder calculus is identified. Electronically signed by: Dino Ross M.D. 06/07/2017 5:51 PM Dictated Date/Time: 06/07/2017 5:48 PM
[2017-06-07] MEDS: INSULIN ASPART 100 UNITS/ML 3 ML PEN SC SCH ×3 (18:02→23:51)
[2017-06-07] MEDS ORDERED: MoRPHine SULFATE 2 MG/ML CARP IV PRN (18:45)
[2017-06-07] MEDS ORDERED: CRANBERRY PO SCH (21:00)
[2017-06-07 23:21] VITALS: BP 113/72; PULSE 70; TEMP 37.5; O2SAT 93
[2017-06-08] MEDS: INSULIN ASPART 100 UNITS/ML 3 ML PEN SC SCH ×3 (04:00→13:35)
[2017-06-08 06:04] LABS: HEMATOCRIT 38.9 % (42-52); HEMOGLOBIN 11.8 g/dL (14.0-18.0); MEAN CELL VOLUME 87.6 fL (80-100); MEAN CORPUSCULAR HEMOGLOBIN 26.6 pg (25-34); MEAN CORPUSCULAR HGB CONC 30.3 g/dl (32-36); MEAN PLATELET VOLUME 11.2 fL (7.4-10.4); PLATELET COUNT 140 K/uL (130-400); RED CELL DISTRIBUTION WIDTH CV 16.3 % (11.5-14.5); WHITE BLOOD COUNT 6.45 K/uL (4.8-10.8)
[2017-06-08 06:26] LABS: CALCIUM 8.7 mg/dl (8.5-10.1); CREATININE 1.31 mg/dl (0.60-1.40); POTASSIUM 3.8 mmol/L (3.5-5.1)
[2017-06-08] MEDS: CHECK CLONIDINE PATCH PLACEMENT SCH (07:45)
[2017-06-08 07:57] VITALS: BP 148/79; PULSE 56; TEMP 36.9; O2SAT 92
[2017-06-08 08:00] VITALS: O2SAT 92
[2017-06-08] MEDS ORDERED: ENALAPRIL MALEATE 5 MG TAB PO SCH (09:00)
[2017-06-08] MEDS ORDERED: PANTOprazole SOD 40 MG TAB PO SCH (09:00)
[2017-06-08] MEDS ORDERED: TRIAMTERENE/HCTZ 37.5/25MG CAP PO SCH (09:00)
[2017-06-08] MEDS: SODIUM CHLORIDE 0.9% 1000ML 1,000 ML IV SCH (09:58)
[2017-06-08] MEDS ORDERED: CEFTRIAXONE SOD INJ 1 GM in DEXTROSE 5% ADD-VANTAGE 50ML 50 ML IV SCH (10:00)
--- NOTE | 2017-06-08 10:57 | Pharmacy Progress Note ---
Glycemic: Assessment & Plan Date of Service Jun 08, 2017. Assessment & Plan The patient is currently receiving ~41 units of insulin per day. BSGs ranging 106 - 154 mg/dl over the past 24hrs. * Basal insulin: Lantus 27 units every 24 hours given in the evening * Correctional Insulin: Novolog Correction per scale ACHS Goal Range: Low 120 mg/dL - High 140 mg/dL Correction Factor: 15 mg/dL/unit * Prandial insulin: Per carb ratio of 1 unit per 6 grams CHO consumed BSGs continue to improve, no changes needed to inpatient regimen at this time. Pharmacy will continue to monitor patient daily and write orders per [facility] inpatient glycemic control protocol. Thanks. * Please note that the plan above was derived based on current level of insulin resistance and hospital stress. These recommendations are appropriate for inpatient admission only. Plan of care upon discharge will need to be reassessed to avoid potential outpatient hypo/hyperglycemia.
--- NOTE | 2017-06-08 11:37 | Urology Consultation ---
History General Date of Service: Jun 08, 2017. Primary Care Physician: Roe Hayes M.D. History of Present Illness 71-year-old white male admitted through the emergency room with bladder pain. He says he has been treated for urinary tract infections on multiple occasions. He also saw Dr. Dejesus in the past. He has a lot of lower urinary tract symptoms Nocturia 4 or 5 Stream week Does have dysuria Denies hematuria Denies hesitancy Feels like he empties his bladder most of the time Daytime frequency every 1-2 hours Has a lot of urgency with occasional incontinence Symptoms are bothersome HPI - UTI Prior UTI History: number of UTI's History of Stone: none History of Surgery: none Laboratory Last Vital Signs Documentation Date Time Temp Pulse Resp B/P (MAP) Pulse Ox O2 Delivery O2 Flow Rate FiO2 06/08/17 07:57 36.9 56 18 148/79 (102) 92 Room Air 06/07/17 23:45 2.0 Last 24 Hours Test 06/07/17 11:54 06/07/17 17:02 06/07/17 20:30 06/07/17 23:49 Lactic Acid Level 0.9 mmol/L Bedside Glucose 154 mg/dl 110 mg/dl 106 mg/dl Test 06/08/17 04:03 06/08/17 05:15 Bedside Glucose 131 mg/dl White Blood Count 6.45 K/uL Red Blood Count 4.44 M/uL Hemoglobin 11.8 g/dL Hematocrit 38.9 % Mean Corpuscular Volume 87.6 fL Mean Corpuscular Hemoglobin 26.6 pg Mean Corpuscular Hemoglobin Concent 30.3 g/dl RDW Standard Deviation 52.0 fL RDW Coefficient of Variation 16.3 % Platelet Count 140 K/uL Mean Platelet Volume 11.2 fL Sodium Level 137 mmol/L Potassium Level 3.8 mmol/L Chloride Level 102 mmol/L Carbon Dioxide Level 29 mmol/L Anion Gap 6.0 mmol/L Blood Urea Nitrogen 23 mg/dl Creatinine 1.31 mg/dl Est Creatinine Clear Calc Drug Dose 75.2 ml/min Estimated GFR () 63.5 Estimated GFR (Non- 54.8 BUN/Creatinine Ratio 17.6 Random Glucose 125 mg/dl Calcium Level 8.7 mg/dl Magnesium Level 2.2 mg/dl Labs were reviewed and are within normal limits unless listed below. Labs are available in the chart and at [facility] Problem List Medical Problems: (1) Bladder stone Status: Acute (2) Bladder stone Status: Acute (3) Bronchitis Status: Acute (4) Dysuria Status: Acute (5) Prostatitis Status: Acute (6) Prostatitis Status: Acute (7) Sinusitis, acute Status: Acute (8) UTI (urinary tract infection) Status: Acute Past History diabetes, hypertension Pt had a problem w anesthesia?: No Past Surgical History: other Family History Unobtainable family history due to adoption Social History Hx Tobacco Use In Past Year?: No Alcohol: no current use Marital status: Housing status: lives with family Occupation status: employed Immunizations History of Influenza Vaccine: No History of Tetanus Vaccine?: Yes Tetanus Immunization Date: Jan 10, 2011 History of Pneumococcal: No Pneumococcal Date: Oct 21, 2011 History of Hepatitis B Vaccine: No Allergies Coded Allergies: Ciprofloxacin (Verified Allergy, Intermediate, cramping/nausea, 06/07/17) Medications Home Medications: Home Meds and Scripts Medications Dose Route/Sig Max Daily Dose Days Date Category Dose Instructions Nystatin Cream (Nystatin) 90 Appln/30 Gm Cr 0 EXT TID 06/01/17 Reported APPLY TO AFFECTED AREA BID Macrobid (Nitrofurantoin Macrocrystals) 100 Mg Cap 100 Mg PO BID PRN 06/01/17 Reported Januvia (Sitagliptin Phosphate) 100 Mg Tab 100 Mg PO DAILY 03/21/17 Reported Azo-Cranberry (Cranberry (Vaccinium Macrocarp) 450 Mg Tab 450 Mg PO BID 11/01/16 Reported Azo Urinary Pain Relief (Phenazopyridine HCl) 95 Mg Tab 95 Mg PO BID PRN 11/01/16 Reported Ecotrin Or Generic (Aspirin) 325 Mg Ectab 325 Mg PO TID 11/01/16 Reported Tylenol Arthritis Ext Rel (Acetaminophen) 650 Mg Cplt 650 Mg PO Q8H 11/01/16 Reported Diyumiwy-Eei-7 (Clonidine Hcl) 0.2 Mg/24 Hr Dis 1 Patch TOP WK 11/01/16 Reported [place]ED[place] Dyazide 37.5MG/25MG (Triamterene/HCTZ) Cap 1 Tab PO DAILY 11/01/16 Reported Micronase (Glyburide) 5 Mg Tab 10 Mg PO BID 11/01/16 Reported Vasotec (Enalapril Maleate) 5 Mg Tab 5 Mg PO DAILY 05/20/12 Reported Protonix (Pantoprazole Sodium) 40 Mg Tab 40 Mg PO DAILY 07/27/10 Reported Inpatient Medications: Current Inpatient Medications Medications (Trade) Dose Ordered Sig/Mikey Route Start Time Stop Time Status Last Admin Dose Admin Acetaminophen (Tylenol Tab) 650 mg Q4H PRN PO 06/07/17 12:45 07/07/17 12:44 06/07/17 18:36 650 MG Ondansetron HCl (Zofran Inj) 4 mg Q6H PRN IV 06/07/17 12:45 07/07/17 12:44 06/08/17 07:41 4 MG Ceftriaxone Sodium 1 gm/ Dextrose 50 ml @ 100 mls/hr Q24H IV 06/08/17 10:00 06/17/17 09:59 06/08/17 09:58 100 MLS/HR Phenazopyridine HCl (Pyridium Tab) 100 mg TID PRN PO 06/07/17 13:00 07/07/17 12:59 06/07/17 18:36 100 MG Clonidine HCl (Cfxfxigk-Zdf-6 0.1mg/24hr Patch) 1 patch We@0900 TD 06/11/17 09:00 07/11/17 08:59 Enalapril Maleate (Vasotec Tab) 5 mg DAILY PO 06/08/17 09:00 07/08/17 08:59 Pantoprazole Sodium (Protonix Tab) 40 mg DAILY PO 06/08/17 09:00 07/08/17 08:59 Triamterene/HCTZ (Dyazide 37.5/25 Mg Cap) 1 cap DAILY PO 06/08/17 09:00 07/08/17 08:59 Insulin Aspart (novoLOG ASPART) SLIDING SCALE If C... ACHS SC 06/07/17 17:15 07/07/17 17:14 06/07/17 21:43 2 UNITS Glucose (Glucose 40% Gel) 15-30 GRAMS 15 GRAMS... UD PRN PO 06/07/17 13:00 07/07/17 12:59 Glucose (Glucose Chew Tab) 4-8 Tablets 4 Tabl... UD PRN PO 06/07/17 13:00 07/07/17 12:59 Dextrose (Dextrose 50% 50ML Syringe) 25-50ML OF 50% DW IV FOR... UD PRN IV 06/07/17 13:00 07/07/17 12:59 Glucagon (Glucagon Inj) 1 mg UD PRN SQ 06/07/17 13:00 07/07/17 12:59 Miscellaneous Information (Consult Glycemic Management Pharmacy) 1 ea UD PRN N/A 06/07/17 13:40 07/07/17 13:39 Sodium Chloride 1,000 ml @ 50 mls/hr Q20H IV 06/07/17 14:00 07/07/17 13:59 06/08/17 09:58 50 MLS/HR Clonidine HCl (Catapres Tab) 0.2 mg BID PRN PO 06/07/17 13:00 07/07/17 12:59 Miscellaneous (Remove Clonidine Patch) 1 ea Q7D@0859 N/A 06/11/17 08:59 07/11/17 08:58 Miscellaneous Information (Check Clonidine Patch Placement) 1 ea QS N/A 06/07/17 16:00 07/07/17 15:59 06/08/17 07:45 1 EA Morphine Sulfate (MoRPHine SULFATE INJ) 1 mg Q4H PRN IV 06/07/17 18:45 06/21/17 18:44 06/08/17 07:42 1 MG Insulin Glargine (Lantus Solostar Pen) 27 units QDD SC 06/08/17 17:45 07/08/17 17:44 Review of Systems Review of Systems Additional Comments: Review of systems were reviewed from his admission a history and physical Physical Exam Vital Signs: Vital Signs Past 12 Hours Date Time Temp Pulse Resp B/P (MAP) Pulse Ox O2 Delivery O2 Flow Rate FiO2 06/08/17 07:57 36.9 56 18 148/79 (102) 92 Room Air 06/07/17 23:45 Room Air 2.0 Physical Exam: General Appearance: WD/WN, no apparent distress Eyes: bilateral eyes normal inspection ENT: hearing grossly normal Neck: no adenopathy Respiratory/Chest: chest non-tender, lungs clear, normal breath sounds, no respiratory distress Cardiovascular: regular rate, rhythm Gastrointestinal: Abdomen: normal abdomen Genitourinary - Male: Penis: normal penis Urethral Meatus: normal urethral meatus Prostate: normal prostate, size (50 g) Seminal Vesicles: normal seminal vesicles Assessment & Plan Assessment & Plan Assessment Irritative voiding symptoms I reviewed the patient's chart he has had several cultures they were all negative though even though he has been treated for UTI I also reviewed his CT scan which shows a 4 cm bladder calculus which is probably giving him all of the symptoms. We discussed today that when he is discharged we will schedule him for a cystoscopy in our office and then plan on how to remove the bladder calculus he will probably also need something done with his prostate.
[2017-06-08] MEDS ORDERED: TAMS0.4C38 PO (13:06)
[2017-06-08] MEDS ORDERED: NITR-5 PO (13:06)
[2017-06-08] MEDS ORDERED: HYDR-3419 PO (13:06)
--- NOTE | 2017-06-08 13:43 | Progress Note ---
Subjective Date of Service: Jun 08, 2017. Subjective Pt evaluation today including: conversation w/ patient, physical exam, lab review, review of studies, review of inpatient medication list Saw/examined the patient in room 352 Not happy that procedure not being done inpatient States his pain is the main issue and that oxycontin is too strong for him c/o urinary frequency Problem List Medical Problems: (1) Bladder stone Status: Acute (2) Bladder stone Status: Acute (3) Bronchitis Status: Acute (4) Dysuria Status: Acute (5) Prostatitis Status: Acute (6) Prostatitis Status: Acute (7) Sinusitis, acute Status: Acute (8) UTI (urinary tract infection) Status: Acute Review of Systems Respiratory: No cough, No sputum, No shortness of breath Cardiac: No chest pain, No edema, No palpitations Male : + urinary frequency, + incontinence, No dysuria Medications Current Inpatient Medications Medications (Trade) Dose Ordered Sig/Mikey Route Start Time Stop Time Status Last Admin Dose Admin Acetaminophen (Tylenol Tab) 650 mg Q4H PRN PO 06/07/17 12:45 07/07/17 12:44 06/07/17 18:36 650 MG Ondansetron HCl (Zofran Inj) 4 mg Q6H PRN IV 06/07/17 12:45 07/07/17 12:44 06/08/17 07:41 4 MG Ceftriaxone Sodium 1 gm/ Dextrose 50 ml @ 100 mls/hr Q24H IV 06/08/17 10:00 06/17/17 09:59 06/08/17 09:58 100 MLS/HR Phenazopyridine HCl (Pyridium Tab) 100 mg TID PRN PO 06/07/17 13:00 07/07/17 12:59 06/07/17 18:36 100 MG Clonidine HCl (Kxabnvsc-Bsy-9 0.1mg/24hr Patch) 1 patch We@0900 TD 06/11/17 09:00 07/11/17 08:59 Enalapril Maleate (Vasotec Tab) 5 mg DAILY PO 06/08/17 09:00 07/08/17 08:59 Pantoprazole Sodium (Protonix Tab) 40 mg DAILY PO 06/08/17 09:00 07/08/17 08:59 Triamterene/HCTZ (Dyazide 37.5/25 Mg Cap) 1 cap DAILY PO 06/08/17 09:00 07/08/17 08:59 Insulin Aspart (novoLOG ASPART) SLIDING SCALE If C... ACHS SC 06/07/17 17:15 07/07/17 17:14 06/07/17 21:43 2 UNITS Glucose (Glucose 40% Gel) 15-30 GRAMS 15 GRAMS... UD PRN PO 06/07/17 13:00 07/07/17 12:59 Glucose (Glucose Chew Tab) 4-8 Tablets 4 Tabl... UD PRN PO 06/07/17 13:00 07/07/17 12:59 Dextrose (Dextrose 50% 50ML Syringe) 25-50ML OF 50% DW IV FOR... UD PRN IV 06/07/17 13:00 07/07/17 12:59 Glucagon (Glucagon Inj) 1 mg UD PRN SQ 06/07/17 13:00 07/07/17 12:59 Miscellaneous Information (Consult Glycemic Management Pharmacy) 1 ea UD PRN N/A 06/07/17 13:40 07/07/17 13:39 Sodium Chloride 1,000 ml @ 50 mls/hr Q20H IV 06/07/17 14:00 07/07/17 13:59 06/08/17 09:58 50 MLS/HR Clonidine HCl (Catapres Tab) 0.2 mg BID PRN PO 06/07/17 13:00 07/07/17 12:59 Miscellaneous (Remove Clonidine Patch) 1 ea Q7D@0859 N/A 06/11/17 08:59 07/11/17 08:58 Miscellaneous Information (Check Clonidine Patch Placement) 1 ea QS N/A 06/07/17 16:00 07/07/17 15:59 06/08/17 07:45 1 EA Morphine Sulfate (MoRPHine SULFATE INJ) 1 mg Q4H PRN IV 06/07/17 18:45 06/21/17 18:44 06/08/17 07:42 1 MG Insulin Glargine (Lantus Solostar Pen) 27 units QDD SC 06/08/17 17:45 07/08/17 17:44 Objective Vital Signs Date Time Temp Pulse Resp B/P (MAP) Pulse Ox O2 Delivery O2 Flow Rate FiO2 06/08/17 08:00 92 06/08/17 07:57 36.9 56 18 148/79 (102) 92 Room Air 06/07/17 23:45 Room Air 2.0 06/07/17 23:21 37.5 70 16 113/72 (86) 93 Room Air 06/07/17 15:24 36.9 52 18 145/76 (99) 90 Room Air 06/07/17 14:37 92 Room Air 06/07/17 13:45 36.5 57 18 142/74 (96) 92 Room Air 06/07/17 13:37 62 20 158/88 92 Room Air Physical Exam General Appearance: no apparent distress Cardiovascular: regular rate, rhythm, no edema, no murmur Abdomen: normal bowel sounds, non tender, soft Extremities: normal inspection, no pedal edema Neurologic/Psychiatric: no motor/sensory deficits, alert, normal mood/affect Laboratory Results Last 24 Hours Test 06/07/17 17:02 06/07/17 20:30 06/07/17 23:49 06/08/17 04:03 Bedside Glucose 154 mg/dl 110 mg/dl 106 mg/dl 131 mg/dl Test 06/08/17 05:15 White Blood Count 6.45 K/uL Red Blood Count 4.44 M/uL Hemoglobin 11.8 g/dL Hematocrit 38.9 % Mean Corpuscular Volume 87.6 fL Mean Corpuscular Hemoglobin 26.6 pg Mean Corpuscular Hemoglobin Concent 30.3 g/dl RDW Standard Deviation 52.0 fL RDW Coefficient of Variation 16.3 % Platelet Count 140 K/uL Mean Platelet Volume 11.2 fL Sodium Level 137 mmol/L Potassium Level 3.8 mmol/L Chloride Level 102 mmol/L Carbon Dioxide Level 29 mmol/L Anion Gap 6.0 mmol/L Blood Urea Nitrogen 23 mg/dl Creatinine 1.31 mg/dl Est Creatinine Clear Calc Drug Dose 75.2 ml/min Estimated GFR () 63.5 Estimated GFR (Non- 54.8 BUN/Creatinine Ratio 17.6 Random Glucose 125 mg/dl Calcium Level 8.7 mg/dl Magnesium Level 2.2 mg/dl Assessment and Plan This is a 71 year old obese male with a PMH of DM2, HTN, GERD, BPH - presents with urinary frequency, suprapubic pain found to have 4cm bladder calculi Bladder Calculus - appreciate urology input - at this time, no inpatient procedure is planned - will d/c home with Flomax, Macrobid and Hydrocodone PRN for pain - may need w/up and biopsy of prostate as well DM2 - Ha1c = 7.7% - appreciate pharmacy glycemic control HTN - continue home medications GERD - Continue PPI DVT ppx - SCDs FULL CODE
--- NOTE | 2017-06-08 13:46 | Discharge Instructions ---
Discharge Instructions Date of Service Jun 08, 2017. Admission Reason for Admission: Bladder Calculus, Prostatitis Discharge Discharge Diagnosis / Problem: Bladder Calculus Discharge Goals Goal(s): Decrease discomfort, Improve function, Diagnostic testing, Therapeutic intervention Activity Recommendations Activity Limitations: resume your previous activity . Instructions / Follow-Up Instructions / Follow-Up Please follow-up with urology on , June 12 as scheduled * You will be discharged on Flomax, Macrobid and Hydrocodone as needed for pain * Outpatient procedures as per urology Current Hospital Diet Patient's current hospital diet: Diabetes Type 2 Diet, AHA Diet (Heart Healthy) Discharge Diet Recommended Diet: AHA Diet (Heart Healthy), Diabetes Type 2 Diet Pending Studies Studies pending at discharge: no Laboratory Results Hemoglobin A1c Test 06/08/17 05:15 Range/Units Medical Emergencies . Who to Call and When: Medical Emergencies: If at any time you feel your situation is an emergency, please call 911 immediately. . Non-Emergent Contact Non-Emergency issues call your: Primary Care Provider, Urologist . . "Provider Documentation" section prepared by Puja Peralta. . [place] Drug Monitoring Program Search Results: patient reviewed within database, no issues identified
--- NOTE | 2017-06-08 13:53 | Discharge Summary ---
Discharge Summary Date of Service Jun 08, 2017. Discharge Summary Admission Date: Jun 07, 2017 at 12:41 Discharge Date: Jun 08, 2017 Discharge Disposition: Home Principal Diagnosis: Bladder Calculus BPH DM2 HTN Medication Reconciliation New Medications: Hydrocodon/Acetaminophen 5MG/300MG (Vicodin (5MG/300MG)) 1 Tab Tab 1 TAB PO Q6H PRN for Pain for 5 Days, #20 TAB Tamsulosin Hcl (Flomax) 0.4 Mg Cap 1 CAP PO DAILY for 30 Days, #30 CAP 5 Refills Continued Medications: Acetaminophen (Tylenol Arthritis Ext Rel) 650 Mg Cplt 650 MG PO Q8H, CAP Aspirin Enteric Coated (Ecotrin Or Generic) 325 Mg Ectab 325 MG PO TID, TAB Clonidine Hcl (Xtxwspsk-Twp-4) 0.2 Mg/24 Hr Dis 1 PATCH TOP WK WEDNESDAYS Cranberry (Vaccinium Macrocarp (Azo-Cranberry) 450 Mg Tab 450 MG PO BID Enalapril (Vasotec) 5 Mg Tab 5 MG PO DAILY, TAB Glyburide (Micronase) 5 Mg Tab 10 MG PO BID, TAB Nitrofurantoin Monohyd Macrocr (Macrobid) 100 Mg Cap 100 MG PO BID PRN for URINARY SYMPTOMS for 5 Days, #10 CAP (This prescription has been renewed) Nystatin (Nystatin Cream) 90 Appln/30 Gm Cr 0 EXT TID, #15 GM APPLY TO AFFECTED AREA BID Pantoprazole (Protonix) 40 Mg Tab 40 MG PO DAILY Phenazopyridine HCl (Azo Urinary Pain Relief) 95 Mg Tab 95 MG PO BID PRN for URINARY SYMPTOMS Sitagliptin Phosphate (Januvia) 100 Mg Tab 100 MG PO DAILY Triamterene/Hctz (Dyazide 37.5MG/25MG) Cap 1 TAB PO DAILY, CAP Admission Information HPI (per Admitting provider): Patient is a 71 yr male with PMH of DM II, GERD, Bronchiectasis, HTN, Obesity, BPH, H/O UTI and other problems presents with history of Persistent Urinary symptoms. Patient was in ED 5 days ago and was discharged on Omnicef. Patient was found to have a bladder caliculi and inflammatory changes of prostate on CT scan done on . Urine culture was negative. Patient stopped taking Omnicef after 3 days secondary to side effects. He reports passing multiple small stones. Patient states since having UTI 5 yr ago, patient had intermittent bladder pain and burning micturition and has been on PO antibiotics on multiple occasions. He states his last cystoscopy was 2 years ago. He states his urinary symptoms have gradually worsening since last 10 days. Reports suprapubic pressure, Urinary incontinence 2 days ago which resolved, poor urine stream, burning micturition, chills. Denies any hematuria, discharge, fever, chest pain , SOB, diarrhea, flank pain. Physical Exam (per Admitting): General Appearance: no apparent distress, + obese Head: normocephalic, atraumatic Eyes: normal inspection, PERRL, EOMI ENT: normal ENT inspection, hearing grossly normal Neck: supple, trachea midline Respiratory/Chest: chest non-tender, lungs clear, normal breath sounds, no respiratory distress, no accessory muscle use Cardiovascular: regular rate, rhythm, no edema, no murmur Abdomen/GI: normal bowel sounds, soft, + tenderness (Suprapubic region), + pertinent finding (Obese, No guarding, No flank tenderness) Back: normal inspection, no CVA tenderness Extremities/Musculoskelatal: normal inspection, no pedal edema Neurologic/Psych: auto adjudication specialist II-XII nml as tested, no motor/sensory deficits, alert , normal mood/affect, oriented x 3 Skin: normal color, warm/dry Hospital Course This is a 71 year old obese male with a PMH of DM2, HTN, GERD, BPH - presents with urinary frequency, suprapubic pain found to have 4cm bladder calculi Bladder Calculus - appreciate urology input - at this time, no inpatient procedure is planned - will d/c home with Flomax, Macrobid and Hydrocodone PRN for pain - may need w/up and biopsy of prostate as well DM2 - Ha1c = 7.7% - appreciate pharmacy glycemic control HTN - continue home medications GERD - Continue PPI DVT ppx - SCDs FULL CODE Total time spent on discharge = 20 minutes This includes examination of the patient, discharge planning, medication reconciliation, and communication with other providers. Discharge Instructions Please follow-up with urology on , June 12 as scheduled * You will be discharged on Flomax, Macrobid and Hydrocodone as needed for pain * Outpatient procedures as per urology
[2017-06-08 14:46] VITALS: BP 148/79; PULSE 56; TEMP 36.9; O2SAT 92
[2017-06-08] MEDS ORDERED: INSULIN GLARGINE SOLOSTAR 100 UNITS/ML 3 ML PEN SC SCH (17:45)
[2017-06-09 07:10] LABS: HEMOGLOBIN A1C 7.4 % (4.5-5.6)
[2017-06-11] MEDS ORDERED: CLONIDINE HCL 0.1 MG/24 HR TRANSDERM SYS TD SCH (09:00)
== END 2017-06-08 15:00 | disposition home or self-care (01) | DRG 694 ==
LOC: C.EDB 08:55 → C.MSW 12:41 → EDBEDREQ 13:12 → ENRESERV 13:19
PROVIDERS: ADMIT Internal Medicine; ATTEND Family Medicine
DX: N21.0 Calculus in bladder (principal); Z68.41 Body mass index [BMI] 40.0-44.9, adult; I10 Essential (primary) hypertension; E11.8 Type 2 diabetes mellitus with unspecified complications; Z79.82 Long term (current) use of aspirin; Z88.1 Allergy status to other antibiotic agents; E66.9 Obesity, unspecified; K21.9 Gastro-esophageal reflux disease without esophagitis; N40.1 Benign prostatic hyperplasia with lower urinary tract symptoms; Z87.440 Personal history of urinary (tract) infections

== ENCOUNTER → 2017-06-21 | Outpatient (CLI) | payer OTHER ==
[~2017-06-21] MED LIST changes: -CEFD1CAP14 PO; +FINA5TAB PO; +HYDR-5688 PO; +NITR1CAP32 PO; +TAMS0.4C38 PO; +[UNRECOGNIZED DRUG - OTHER] PO
== END | disposition home or self-care (01) ==
LOC: C.LAB 14:00
PROVIDERS: ATTEND Nurse Practitioner Adult Health
DX: N39.0 Urinary tract infection, site not specified (principal)

== ENCOUNTER 2017-07-03 13:21 | Emergency (ER) | payer OTHER ==
[~2017-07-03] VITALS: Ht 182.9 cm; Wt 136.0 kg
[~2017-07-03 13:21] MED LIST changes: -NITR-5 PO
[2017-07-03 13:26] VITALS: TEMP 36.4; Ht 182.9 cm; Wt 136.0 kg
[2017-07-03] MEDS ORDERED: MoRPHine SULFATE 4 MG/ML 1 ML CARP\\VIAL IV STA ×2 (13:53→17:29)
--- NOTE | 2017-07-03 13:54 | EMERGENCY ROOM VISIT NOTE ---
History Report prepared by Jose Miguel: Roni David Under the Supervision of: Dr. Gino Otto M.D. First contact with patient: 13:32 Chief Complaint: CATHETER REPLACEMENT Stated Complaint: CATHETER BLOCKED UP AND LEAKING History of Present Illness The patient is a 71 year old male who presents to the Emergency Room with complaints of constant leaking and blockage of his Allison catheter starting earlier today. He currently rates his discomfort as a 6-7/10 in severity. The patient states that the urine as been going around the catheter and has been leaking all day, though it is now leaking around it but also draining into the bag. The patient states that he has the catheter in for the past two days since he is going to get surgery next week on his bladder for a large bladder stone. He notes that when the catheter was put in they had trouble putting it in twice , and he notes that he has an enlarged prostate. The patient states that he has been having pain with urination, though he states that he has been having this pain for the past month or so. He notes that he is currently on Flomax and Macrobid. Source of History: patient Onset: this morning Position: other (penis) Symptom Intensity: 6-7/10 Quality: other (catheter leaking and blockage) Timing: constant Note: Associated symptoms: Pain with urination. Review of Systems See HPI for pertinent positives and negatives. A total of ten systems were reviewed and were otherwise negative. Past Medical & Surgical Medical Problems: (1) Benign hypertension (2) Bladder calculus (3) Diabetes mellitus type 2 (4) Esophagitis (5) Pneumonia Family History Unobtainable family history due to adoption Social History Smoking Status: Never Smoker Alcohol Use: none Drug Use: none Marital Status: Housing Status: lives with significant other Occupation Status: employed Current/Historical Medications Scheduled Clonidine Hcl ([id number]), 1 PATCH TOP WK Cranberry (Vaccinium Macrocarp (Azo-Cranberry), 450 MG PO BID Enalapril (Vasotec), 5 MG PO QAM Finasteride (Proscar), 5 MG PO QAM Glyburide (Micronase), 10 MG PO BID Nitrofurantoin Macrocrystals (Macrodantin), 100 MG PO QAM Nystatin (Nystatin Cream), 0 EXT TID Ondasetron Odt (Zofran Odt), 4 MG SL Q6H Pantoprazole (Protonix), 40 MG PO QAM Sitagliptin Phosphate (Januvia), 100 MG PO QAM Tamsulosin Hcl (Flomax), 0.4 MG PO QAM Triamterene/Hctz (Dyazide 37.5MG/25MG), 1 TAB PO QAM Scheduled PRN Acetaminophen (Tylenol Arthritis Ext Rel), 1,300 MG PO Q8H PRN for PRN Aspirin Enteric Coated (Ecotrin Or Generic), 325 MG PO TID PRN for PRN Hydrocodone/Acetaminophen 5MG/325MG ([place] 5MG/325MG), 1 TABLET PO Q6H PRN for N Phenazopyridine HCl (Azo Urinary Pain Relief), 95 MG PO BID PRN for URINARY SYMPTOMS [Cranberry Pain Rel], 1 TAB PO TID PRN for PRN Allergies Coded Allergies: Ciprofloxacin (Verified Allergy, Intermediate, cramping/nausea, 07/03/17) Physical Exam Vital Signs Date Time Temp Pulse Resp B/P (MAP) Pulse Ox O2 Delivery O2 Flow Rate FiO2 07/03/17 19:50 78 18 168/113 98 Room Air 07/03/17 15:49 73 18 160/88 97 Room Air 07/03/17 14:35 67 07/03/17 13:26 36.4 58 18 178/93 94 Room Air Physical Exam GENERAL: Awake, alert, well-appearing, in no distress HENT: Normocephalic, atraumatic. Oropharynx unremarkable. EYES: Normal conjunctiva. Sclera non-icteric. NECK: Supple. No nuchal rigidity. FROM. No JVD. RESPIRATORY: Clear to auscultation. CARDIAC: Regular rate, normal rhythm. Extremities warm and well perfused. Pulses equal. ABDOMEN: Soft, non-distended. No tenderness to palpation. No rebound or guarding. No masses. : Allison Catheter in place with no discharge around the catheter at this time draining into the Allison bag clear yellow urine. RECTAL: Deferred. MUSCULOSKELETAL: Chest examination reveals no tenderness. The back is symmetrical on inspection without obvious abnormality. There is no CVA tenderness to palpation. No joint edema. LOWER EXTREMITIES: Calves are equal size bilaterally and non-tender. No edema. No discoloration. NEURO: Normal sensorium. No sensory or motor deficits noted. SKIN: No rash or jaundice noted. Medical Decision & Procedures ER Provider Diagnostic Interpretation: Radiology results as stated below per my review and radiologist interpretation: ULTRASOUND KIDNEYS AND BLADDER CLINICAL HISTORY: Obstructed Allison catheter. COMPARISON STUDY: Abdominal CT dated 06/01/2017. Renal ultrasound dated 06/01/2017. TECHNIQUE: Real-time, grayscale, and color flow sonography of the kidneys and bladder is performed. Images are reviewed in the transverse and longitudinal planes. FINDINGS: Kidneys: The kidneys are normal in size and echotexture. The right kidney measures 11.1 cm in length and the left kidney measures 11.6 cm in length. There is no hydronephrosis. No shadowing renal calculi are identified. A 2.2 cm echogenic structure arises from the upper pole of the right kidney. The tiny cystic lesion suggested by CT was not apparent by ultrasound. No perinephric fluid is identified. Bladder: The bladder is decompressed around a Allison catheter and could not be evaluated. A large shadowing bladder calculus is again noted. IMPRESSION: 1. The kidneys are normal in size and without hydronephrosis. 2. The bladder was decompressed carotid Allison catheter and could not be assessed. 3. A large shadowing bladder calculus is identified. 4. A 2.2 cm echogenic structure arises from the upper pole of the right kidney. This was also seen on the recent abdominal CT, and likely resents a complex/proteinaceous cyst. Nonemergent follow-up with a renal protocol MRI is recommended for further assessment. Electronically signed by: Dino Ross M.D. 07/03/2017 3:47 PM Dictated Date/Time: 07/03/2017 3:44 PM Laboratory Results 07/03/17 14:34 Red Blood Count 4.44, Mean Corpuscular Volume 85.4, Mean Corpuscular Hemoglobin 28.2, Mean Corpuscular Hemoglobin Concent 33.0, Mean Platelet Volume 10.8, Neutrophils (%) (Auto) 65.7, Lymphocytes (%) (Auto) 22.2, Monocytes (%) (Auto) 8.9, Eosinophils (%) (Auto) 2.6, Basophils (%) (Auto) 0.3, Neutrophils # (Auto) 5.01, Lymphocytes # (Auto) 1.69, Monocytes # (Auto) 0.68, Eosinophils # (Auto) 0.20, Basophils # (Auto) 0.02 07/03/17 14:34 Test 07/03/17 14:34 White Blood Count 7.62 K/uL (4.8-10.8) Red Blood Count 4.44 M/uL (4.7-6.1) Hemoglobin 12.5 g/dL (14.0-18.0) Hematocrit 37.9 % (42-52) Mean Corpuscular Volume 85.4 fL (80-100) Mean Corpuscular Hemoglobin 28.2 pg (25-34) Mean Corpuscular Hemoglobin Concent 33.0 g/dl (32-36) Platelet Count 132 K/uL (130-400) Mean Platelet Volume 10.8 fL (7.4-10.4) Neutrophils (%) (Auto) 65.7 % Lymphocytes (%) (Auto) 22.2 % Monocytes (%) (Auto) 8.9 % Eosinophils (%) (Auto) 2.6 % Basophils (%) (Auto) 0.3 % Neutrophils # (Auto) 5.01 K/uL (1.4-6.5) Lymphocytes # (Auto) 1.69 K/uL (1.2-3.4) Monocytes # (Auto) 0.68 K/uL (0.11-0.59) Eosinophils # (Auto) 0.20 K/uL (0-0.5) Basophils # (Auto) 0.02 K/uL (0-0.2) RDW Standard Deviation 47.4 fL (36.4-46.3) RDW Coefficient of Variation 15.2 % (11.5-14.5) Immature Granulocyte % (Auto) 0.3 % Immature Granulocyte # (Auto) 0.02 K/uL (0.00-0.02) Anion Gap 5.0 mmol/L (3-11) Est Creatinine Clear Calc Drug Dose 74.4 ml/min Estimated GFR () 62.9 Estimated GFR (Non- 54.3 BUN/Creatinine Ratio 16.7 (10-20) Calcium Level 9.2 mg/dl (8.5-10.1) Total Bilirubin 0.3 mg/dl (0.2-1) Direct Bilirubin < 0.1 mg/dl (0-0.2) Aspartate Amino Transf (AST/SGOT) 20 U/L (15-37) Alanine Aminotransferase (ALT/SGPT) 31 U/L (12-78) Alkaline Phosphatase 82 U/L (45-117) Total Protein 7.7 gm/dl (6.4-8.2) Albumin 3.4 gm/dl (3.4-5.0) Lipase 114 U/L (73-393) Laboratory results reviewed by me Medications Administered Medications (Trade) Dose Ordered Sig/Mikey Route Start Time Stop Time Status Last Admin Dose Admin Morphine Sulfate (MoRPHine SULFATE INJ) 4 mg NOW STAT IV 07/03/17 13:53 07/03/17 13:55 DC 07/03/17 14:28 4 MG Morphine Sulfate (MoRPHine SULFATE INJ) 4 mg STK-MED ONCE .ROUTE 07/03/17 19:36 07/03/17 19:37 DC 07/03/17 19:36 4 MG ED Course 1332: The patient was evaluated in room C8. A complete history and physical exam was performed. 1720: I reevaluated the patient. Discussed results and discharge instructions: he verbalized understanding and agreement. The patient is ready for discharge. Medical Decision I reviewed the patient's past medical history, medications, and the nursing notes as described above. The patient's presentation and history were concerning for Allison catheter malfunction, catheter obstruction, UTI, among others. The patient is a 71-year-old gentleman with a past medical history of a recent diagnosed large bladder stone measuring 4 cm with being followed by urology, Dr. Phelan status post Allison placement presents emergency department with a complaint of transient obstruction of his Allison catheter with associated urination external to his catheter. On arrival, the patient is relatively well- appearing in no acute distress, afebrile stable vital signs. On exam, the patient has a benign abdomen. He does,however, report constant bladder pain that has been present since his catheter placement. He says he takes Vicodin but does not tolerate it well since he gives him nausea. He is already on Flomax. On initial evaluation the patient did have urine draining into the catheter that was clear/yellow. No no urine drainage external to the catheter at that time. Renal ultrasound unremarkable with no hydronephrosis and decompressed bladder. Labs unremarkable including WBC within normal limits and creatinine 1.3 at baseline. Given the patient's reassuring workup no indication for further imaging or admission at this time. Patient is likely going to experience intermittent obstruction given the size of his bladder stone. Thus, the patient was instructed on how to flush the catheter on his own. The patient was about to be discharged when he reported that again he was having drainage external to the catheter and thus was requesting removal of the catheter. Given that the patient had a catheter placed due to urinary obstruction and overflow incontinence likely related to the his large stone I explained to the patient that it would be recommended that he maintain his Allison to avoid recurrence of his urinary retention. Allison in place he will at least be able to flush any obstruction should it recur, and thus he will be able to manage his symptoms until he is seen next week for his definitive treatment with urology. Patient was agreeable to maintain the Allison if we exchanged it to see if this would improve and minimize obstruction. Thus this was done successfully with continued urine drainage into the Allison bag and no further drainage external to catheter. Findings and plan for follow-up reviewed with patient. Patient agreeable and d/c'd per discharge instructions. Medication Reconcilliation Current Medication List: was personally reviewed by me Blood Pressure Screening Patient's blood pressure: Elevated blood pressure Blood pressure disposition: Referred to PCP Impression Primary Impression: Obstruction of Allison catheter Scribe Attestation The scribe's documentation has been prepared under my direction and personally reviewed by me in its entirety. I confirm that the note above accurately reflects all work, treatment, procedures, and medical decision making performed by me. Departure Information Dispostion Home / Self-Care Prescriptions Ondasetron Odt (ZOFRAN ODT) 4 Mg Tab 4 MG SL Q6H for Nausea, #10 TAB Prov: Gino Otto M.D. 07/03/17 Referrals Roe Hayes M.D. (PCP) Alvaro Phelan MD, Urology Forms HOME CARE DOCUMENTATION FORM, IMPORTANT VISIT INFORMATION Patient Instructions ED Catheter Care [place], [facility] Additional Instructions Please follow up with your urologist next week for re-evaluation and your scheduled procedure. Your catheter most likely was temporarily blocked by your large bladder kidney stone. Otherwise, your exam, ultrasound, and lab results did not show signs of an emergent condition at this time. Acetaminophen for pain and fevers as needed. Continue your Vicodin for breakthrough pain as needed. Flush your catheter as instructed for any subsequent episodes of blockage. Return to the emergency department for worsening symptoms as described in the accompanying instructions.
[2017-07-03 14:52] LABS: BASO % 0.3 %; BASO ABS # 0.02 K/uL (0-0.2); EOS % 2.6 %; HEMATOCRIT 37.9 % (42-52); HEMOGLOBIN 12.5 g/dL (14.0-18.0); IG# 0.02 K/uL (0.00-0.02); LYMPH % 22.2 %; LYMPH ABS # 1.69 K/uL (1.2-3.4); MEAN CELL VOLUME 85.4 fL (80-100); MEAN CORPUSCULAR HEMOGLOBIN 28.2 pg (25-34); MEAN PLATELET VOLUME 10.8 fL (7.4-10.4); MONO % 8.9 %; MONO ABS # 0.68 K/uL (0.11-0.59); NEUT % 65.7 %; NEUT ABS # 5.01 K/uL (1.4-6.5); PLATELET COUNT 132 K/uL (130-400); RED CELL DISTRIBUTION WIDTH CV 15.2 % (11.5-14.5); RED CELL DISTRIBUTION WIDTH SD 47.4 fL (36.4-46.3); WHITE BLOOD COUNT 7.62 K/uL (4.8-10.8)
[2017-07-03 15:13] LABS: ALBUMIN 3.4 gm/dl (3.4-5.0); ALT/SGPT 31 U/L (12-78); AST/SGOT 20 U/L (15-37); BLOOD UREA NITROGEN 22 mg/dl (7-18); CALCIUM 9.2 mg/dl (8.5-10.1); CARBON DIOXIDE 30 mmol/L (21-32); CREATININE 1.32 mg/dl (0.60-1.40); GLUCOSE 194 mg/dl (70-99); LIPASE 114 U/L (73-393); SODIUM 137 mmol/L (136-145)
[2017-07-03 15:16] LABS: ALKALINE PHOSPHATASE 82 U/L (45-117); TOTAL PROTEIN 7.7 gm/dl (6.4-8.2)
--- NOTE | 2017-07-03 15:48 | DIAGNOSTIC IMAGING REPORT ---
ULTRASOUND KIDNEYS AND BLADDER CLINICAL HISTORY: Obstructed Allison catheter. COMPARISON STUDY: Abdominal CT dated 06/01/2017. Renal ultrasound dated 06/01/2017. TECHNIQUE: Real-time, grayscale, and color flow sonography of the kidneys and bladder is performed. Images are reviewed in the transverse and longitudinal planes. FINDINGS: Kidneys: The kidneys are normal in size and echotexture. The right kidney measures 11.1 cm in length and the left kidney measures 11.6 cm in length. There is no hydronephrosis. No shadowing renal calculi are identified. A 2.2 cm echogenic structure arises from the upper pole of the right kidney. The tiny cystic lesion suggested by CT was not apparent by ultrasound. No perinephric fluid is identified. Bladder: The bladder is decompressed around a Allison catheter and could not be evaluated. A large shadowing bladder calculus is again noted. IMPRESSION: 1. The kidneys are normal in size and without hydronephrosis. 2. The bladder was decompressed carotid Allison catheter and could not be assessed. 3. A large shadowing bladder calculus is identified. 4. A 2.2 cm echogenic structure arises from the upper pole of the right kidney. This was also seen on the recent abdominal CT, and likely resents a complex/proteinaceous cyst. Nonemergent follow-up with a renal protocol MRI is recommended for further assessment. Electronically signed by: Dino Ross M.D. 07/03/2017 3:47 PM Dictated Date/Time: 07/03/2017 3:44 PM
[2017-07-03] MEDS ORDERED: DEXAMETHASONE **PF** INJ 10 MG/ML VIAL IV ONE (17:30)
[2017-07-03] MEDS ORDERED: ONDA4TAB10 SL (17:49)
[2017-07-03] MEDS ORDERED: MoRPHine SULFATE 4 MG/ML 1 ML CARP\\VIAL ONE (19:36)
[2017-07-03 19:50] VITALS: BP 168/113; PULSE 78; O2SAT 98
== END 2017-07-03 20:18 | disposition home or self-care (01) ==
LOC: C.EDB 13:23 → C.EDC 20:18
DX: T83.098A Other mechanical complication of other urinary catheter, initial encounter (principal); Y84.6 Urinary catheterization as the cause of abnormal reaction of the patient, or of later complication, without mention of misadventure at the time of the procedure; I10 Essential (primary) hypertension; N21.0 Calculus in bladder; E11.9 Type 2 diabetes mellitus without complications; K20.9 Esophagitis, unspecified; N40.0 Benign prostatic hyperplasia without lower urinary tract symptoms; Z87.01 Personal history of pneumonia (recurrent); Z88.1 Allergy status to other antibiotic agents; Z79.899 Other long term (current) drug therapy

== ENCOUNTER 2017-07-10 07:41 | Day surgery (SDC) | payer OTHER ==
[2017-07-01 10:55] VITALS: BMI 41.0
--- NOTE | 2017-07-01 11:35 | PAT Medication Instructions ---
Service Date Jul 01, 2017. Current Home Medication List Acetaminophen (Tylenol Arthritis Ext Rel), 1,300 MG PO Q8H PRN for PRN Aspirin Enteric Coated (Ecotrin Or Generic), 325 MG PO TID PRN for PRN Clonidine Hcl (Ojsljmfl-Cbl-6), 1 PATCH TOP WK Cranberry (Vaccinium Macrocarp (Azo-Cranberry), 450 MG PO BID Enalapril (Vasotec), 5 MG PO QAM Finasteride (Proscar), 5 MG PO QAM Glyburide (Micronase), 10 MG PO BID Hydrocodone/Acetaminophen 5MG/325MG ([place] 5MG/325MG), 1 TABLET PO Q6H PRN for N Nitrofurantoin Macrocrystals (Macrodantin), 100 MG PO QAM Nystatin (Nystatin Cream), 0 EXT TID Pantoprazole (Protonix), 40 MG PO QAM Phenazopyridine HCl (Azo Urinary Pain Relief), 95 MG PO BID PRN for URINARY SYMPTOMS Sitagliptin Phosphate (Januvia), 100 MG PO QAM Tamsulosin Hcl (Flomax), 0.4 MG PO QAM Triamterene/Hctz (Dyazide 37.5MG/25MG), 1 TAB PO QAM [Cranberry Pain Rel], 1 TAB PO TID PRN for PRN Medication Instructions For Your Scheduled Surgery -Continue as directed: Clonidine Hcl (Ckfwwrok-Pyy-7), 1 PATCH TOP WK - Hold the following medications 2 weeks prior to surgery: [Cranberry Pain Rel], 1 TAB PO TID PRN for PRN Cranberry (Vaccinium Macrocarp (Azo-Cranberry), 450 MG PO BID - Hold the following medications 10 days prior to surgery per your surgeon's instructions: Aspirin Enteric Coated (Ecotrin Or Generic), 325 MG PO TID PRN for PRN - Hold the following medications 24 hours prior to surgery: Nystatin (Nystatin Cream), 0 EXT TID - Hold the following medications the morning of surgery: Enalapril (Vasotec), 5 MG PO QAM Finasteride (Proscar), 5 MG PO QAM Glyburide (Micronase), 10 MG PO BID Sitagliptin Phosphate (Januvia), 100 MG PO QAM Triamterene/Hctz (Dyazide 37.5MG/25MG), 1 TAB PO QAM Phenazopyridine HCl (Azo Urinary Pain Relief), 95 MG PO BID PRN for URINARY SYMPTOMS - Take the following medications the morning of surgery with a sip of water: Acetaminophen (Tylenol Arthritis Ext Rel), 1,300 MG PO Q8H PRN for PRN (if needed, can be taken up to four hours before surgery) Hydrocodone/Acetaminophen 5MG/325MG ([place] 5MG/325MG), 1 TABLET PO Q6H PRN (if needed, can be taken up to four hours before surgery) Nitrofurantoin Macrocrystals (Macrodantin), 100 MG PO QAM Pantoprazole (Protonix), 40 MG PO QAM Tamsulosin Hcl (Flomax), 0.4 MG PO QAM - Take the following medications as scheduled the night before surgery: Acetaminophen (Tylenol Arthritis Ext Rel), 1,300 MG PO Q8H PRN for PRN Glyburide (Micronase), 10 MG PO BID Hydrocodone/Acetaminophen 5MG/325MG ([place] 5MG/325MG), 1 TABLET PO Q6H PRN (if needed) Phenazopyridine HCl (Azo Urinary Pain Relief), 95 MG PO BID PRN for URINARY SYMPTOMS (if needed) If you have any questions please call us at [phone] or [phone] or [phone]
[2017-07-01 12:48] LABS: BASO % 0.3 %; BASO ABS # 0.02 K/uL (0-0.2); EOS % 2.6 %; EOS ABS # 0.17 K/uL (0-0.5); HEMATOCRIT 37.8 % (42-52); IG# 0.02 K/uL (0.00-0.02); LYMPH % 28.5 %; LYMPH ABS # 1.89 K/uL (1.2-3.4); MEAN CELL VOLUME 86.9 fL (80-100); MEAN CORPUSCULAR HEMOGLOBIN 27.6 pg (25-34); MEAN CORPUSCULAR HGB CONC 31.7 g/dl (32-36); MEAN PLATELET VOLUME 10.8 fL (7.4-10.4); NEUT % 62.3 %; NEUT ABS # 4.13 K/uL (1.4-6.5); PLATELET COUNT 131 K/uL (130-400); RED CELL DISTRIBUTION WIDTH CV 15.3 % (11.5-14.5); RED CELL DISTRIBUTION WIDTH SD 48.8 fL (36.4-46.3); WHITE BLOOD COUNT 6.63 K/uL (4.8-10.8)
[2017-07-01 12:55] LABS: CALCIUM 8.9 mg/dl (8.5-10.1); CREATININE 1.23 mg/dl (0.60-1.40); POTASSIUM 4.4 mmol/L (3.5-5.1)
[~2017-07-10] VITALS: Ht 182.9 cm; Wt 139.0 kg
[~2017-07-10 07:41] MED LIST changes: +CEFAZOLIN 3000MG IV PUSH 22.5 ML IV SCH; +GENTAMICIN INJ 120 MG in DEXTROSE 5% 100ML 100 ML IV SCH; +LACTATED RINGER'S 1000ML 1,000 ML IV SCH; +ONDA4TAB10 SL
[2017-07-10 08:10] VITALS: BP 175/94; PULSE 63; TEMP 36.8; O2SAT 94; Ht 182.9 cm; Wt 139.0 kg
[2017-07-10] MEDS ORDERED: PHENYLEPHRINE 100MCG/ML 5ML SYR IV PRN (08:15)
[2017-07-10] MEDS ORDERED: EpHEDrine SULFATE INJ 50 MG/ML AMP IV PRN (08:15)
[2017-07-10] MEDS ORDERED: LABETALOL HCL IV 5 MG/ML 20ML IV PRN (08:15)
[2017-07-10] MEDS ORDERED: FENTANYL CITRATE INJ 50 MCG/1 ML 2 ML VIAL IV PRN (08:15)
[2017-07-10] MEDS ORDERED: ATROPINE SULFATE 0.1 MG/ML 5ML SYR IV PRN (08:15)
[2017-07-10] MEDS ORDERED: ONDANSETRON INJ 2 MG/ML 2 ML VIAL IV PRN (08:15)
[2017-07-10] MEDS ORDERED: HYDROmorphone INJ 1 MG/ML SYR IV PRN (08:15)
[2017-07-10] MEDS ORDERED: MIDAZOLAM HCL 1 MG/ML 2ML VIAL ONE (08:49)
[2017-07-10] MEDS ORDERED: DEXAMETHASONE SOD INJ 4 MG/ML VIAL ONE (08:49)
[2017-07-10] MEDS ORDERED: FENTANYL CITRATE INJ 50 MCG/1 ML 2 ML VIAL ONE ×4 (08:49→13:19)
[2017-07-10] MEDS ORDERED: ONDANSETRON INJ 2 MG/ML 2 ML VIAL ONE (08:49)
[2017-07-10] MEDS ORDERED: PROPOFOL IV EMULSION 10 MG/ML 20 ML VIAL ONE (08:49)
[2017-07-10] MEDS ORDERED: LIDOCAINE HCL 2% 2 ML VIAL (20MG/ML) ONE (08:49)
--- NOTE | 2017-07-10 10:12 | History & Physical Bridge Note ---
H&P Re-Evaluation Bridge Note: I have examined the patient, reviewed the History & Physical and in the interval since the performance of the History & Physical I have noted the following changes of clinical significance: No changes noted
[2017-07-10] MEDS ORDERED: BELLADONNA/OPIUM SUPP 60 MG SUPP PR ONE ×2 (10:39→12:39)
--- NOTE | 2017-07-10 12:49 | [facility] Operative Report ---
Operative Report Operative Date July 10, 2017. Pre-Operative Diagnosis 1. Bladder Calculus 2. Benign Prostatic Hyperplasia with obstruction and lower urinary tract symptoms 3. Recurrent urinary tract infections Post-Operative Diagnosis same Procedure(s) Performed Bipolar button vaporization of the prostate; Cystolithopaxy Surgeon Dr. 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 Specimens A. Bladder Stones for chemical analysis Drains 26 Albanian Allison with 15 cc of sterile water in the balloon Anesthesia Type General Complication(s) none Disposition no Recovery Room / PACU Indications 71-year-old male with a large bladder stone and intractable symptomatology here for TURP and laser-assisted lithopexy. Please see H&P for further details. Patient has been on nitrofurantoin preoperatively and is covered with Ancef and gentamicin intravenously today. SCDs were used for DVT prophylaxis. Allison catheter is in place and has been reviewed in the ER due to malfunction. Description of Procedure Patient was properly identified and brought into the operative suite after identification for proper consent in the chart general anesthesia with laryngeal mask was initiated and patient was prepped and draped in the standard fashion for this procedure. Full timeout procedure was followed. 26 Albanian resectoscope was introduced into the bladder under direct visualization with cystolitholapaxy could not be initiated due to excess bleeding from the prostate gland. Bipolar button was used to fulgurate and begin a channel TURP to allow for access to the bladder stone. After this was complete a working cystoscope bridge was placed in a 1000 m fiber was used to fragment the stone into small pieces amenable to flushing through the resectoscope sheath. 3 1000 m fibers were needed by the end of the case due to the size of the stone. No evidence of any injury to the bladder or the ureteral orifices was appreciated. After the bladder stone was irrigated free and removed using graspers significantly inflamed bladder with no intravesical tumors or lesions was appreciated. No residual stone fragments were noted. Seen that a significant portion of the TUR had already been performed using the bipolar button this was used to complete the procedure rather than a greenlight laser fiber. This was also required as the patient's vascular prostate required continuous irrigation for hemostasis and visualization throughout the case. After this was completed on obstructive prostate gland with excellent hemostasis was appreciated. Bladder was partially distended and resectoscope was removed. 26 Albanian Allison was placed with 15 cc of sterile water in balloon return of clear irrigant. Anesthesia was reversed belladonna and opium suppository was provided for additional postoperative analgesia. Patient was transferred to the recovery room in stable condition. Follow-up instructions: Patient is to increase his home nitrofurantoin to a twice daily dosing 5 days as discussed with the patient and his . Outpatient trial of void and follow-up visit in the office are confirmed. Patient is instructed to contact our service should he note any fevers, chills, nausea, vomiting or other significant difficulties in the postoperative period. I attest to the content of the Intraoperative Record and any orders documented therein. Any exceptions are noted below.
--- NOTE | 2017-07-10 12:51 | Discharge Instructions ---
Discharge Instructions Date of Service July 10, 2017. Admission Reason for Admission: Benign Prostatic Hyperplasia, Bladder Stone(S) Discharge Discharge Diagnosis / Problem: BPH, bladder stone s/p laser cystolithopaxy and TURP Discharge Goals Goal(s): Decrease discomfort, Improve function, Improve disease control, Therapeutic intervention Activity Recommendations Activity Limitations: as noted below Lifting Limitations: no more than 25 pounds, gradually increase as tolerated Exercise/Sports Limitations: rest today, gradually increase as tolerated May Resume Sexual Activity: after follow-up appointment Shower/Bathe: tomorrow (no tub bath with lopez in place) . Instructions / Follow-Up Instructions / Follow-Up As scheduled in office for lopez removal and postoperative visit. Current Hospital Diet Patient's current hospital diet: Discharge Diet Recommended Diet: Regular Diet (good fluid intake) Procedures Procedures Performed: Bipolar button vaporization of the prostate; Cystolithopaxy Pending Studies Studies pending at discharge: yes List of pending studies: Stone analysis Laboratory Results Hemoglobin A1c Test 06/08/17 05:15 Range/Units Estimated Average Glucose 166 mg/dl Hemoglobin A1c 7.4 H 4.5-5.6 % Medical Emergencies . Who to Call and When: Medical Emergencies: If at any time you feel your situation is an emergency, please call 911 immediately. . Non-Emergent Contact Non-Emergency issues call your: Urologist Call Non-Emergent contact if: you have a fever, temperature is above 101, your pain is not controlled, your pain is worsening, your pain is unusual for you, your pain is concerning you, you have any medication questions . . "Provider Documentation" section prepared by Alvaro Phelan. . [place] Drug Monitoring Program Search Results: patient reviewed within database, see additional documentation (recent Rx for narcotics x 2 in past month from our service - patient requests refill, provided for postop care)
[2017-07-10] MEDS ORDERED: PHENAZOPYRIDINE HCL 200 MG TAB PO PRN (13:00)
[2017-07-10] MEDS ORDERED: OXYCODONE/ACETAMINOPHEN 5-325 TAB PO PRN ×2 (13:00)
--- NOTE | 2017-07-10 13:42 | Anesthesiology Progress Note ---
Anesthesia Post Op Note Date & Time July 10, 2017 at 13:42 Vital Signs Pain Intensity: 4.0 Vital Signs Past 12 Hours Date Time Temp Pulse Resp B/P (MAP) Pulse Ox O2 Delivery O2 Flow Rate FiO2 07/10/17 13:30 73 17 166/86 97 Room Air 07/10/17 13:20 74 12 158/106 98 Oxymask 10 07/10/17 13:10 78 13 168/95 95 Oxymask 10 07/10/17 13:00 36.2 85 10 174/91 91 Oxymask 10 07/10/17 08:10 36.8 63 20 175/94 (121) 94 Room Air Notes Mental Status: alert / awake / arousable, participated in evaluation Pt Amnestic to Procedure: Yes Nausea / Vomiting: adequately controlled Pain: adequately controlled Airway Patency, RR, SpO2: stable & adequate BP & HR: stable & adequate Hydration State: stable & adequate Anesthetic Complications: no major complications apparent
[2017-07-10] MEDS ORDERED: LABETALOL HCL IV 5 MG/ML 20ML ONE (13:50)
[2017-07-10] MEDS ORDERED: HYDROmorphone INJ 0.5 MG/0.5 ML SYR ONE (13:55)
[2017-07-10 14:30] VITALS: BP 171/88; PULSE 66; TEMP 36.8; O2SAT 93
[2017-07-10 15:00] VITALS: BP 157/84; PULSE 66; TEMP 36.4; O2SAT 92
[2017-07-10 15:39] VITALS: BP 161/78; PULSE 70; TEMP 36.5; O2SAT 93
[2017-07-10] MEDS ORDERED: OXYC-57 PO (15:58)
[2017-07-10 16:34] VITALS: BP 164/85; PULSE 67; TEMP 36.7; O2SAT 91
== END 2017-07-10 16:31 | disposition home or self-care (01) ==
LOC: C.ACU 07:41
PROVIDERS: ATTEND Urology
DX: N21.0 Calculus in bladder (principal); N40.1 Benign prostatic hyperplasia with lower urinary tract symptoms; N13.8 Other obstructive and reflux uropathy; N39.0 Urinary tract infection, site not specified; I10 Essential (primary) hypertension; M19.90 Unspecified osteoarthritis, unspecified site; Z86.73 Personal history of transient ischemic attack (TIA), and cerebral infarction without residual deficits; E11.9 Type 2 diabetes mellitus without complications; E66.01 Morbid (severe) obesity due to excess calories; Z68.41 Body mass index [BMI] 40.0-44.9, adult; Z88.1 Allergy status to other antibiotic agents; Z79.899 Other long term (current) drug therapy

== ENCOUNTER → 2017-07-23 | Outpatient (CLI) | payer OTHER ==
[~2017-07-23] MED LIST changes: -CEFAZOLIN 3000MG IV PUSH 22.5 ML IV SCH; -GENTAMICIN INJ 120 MG in DEXTROSE 5% 100ML 100 ML IV SCH; -LACTATED RINGER'S 1000ML 1,000 ML IV SCH; +OXYC-57 PO
== END | disposition home or self-care (01) ==
LOC: C.LABSPEC 17:03
PROVIDERS: ATTEND Urology
DX: N39.0 Urinary tract infection, site not specified (principal)

== ENCOUNTER → 2017-09-24 | Outpatient (CLI) | payer OTHER | END | disposition home or self-care (01) | LOC: C.LABSPEC 17:16 | PROVIDERS: ATTEND Urology | DX: N39.0 Urinary tract infection, site not specified (principal) ==

== ENCOUNTER 2018-06-29 18:02 | Observation (INO) ==
[2018-06-29] MEDS ORDERED: HydrALAZINE HCL 20 MG/ML VIAL IV STA ×2 (18:30→20:03)
[2018-06-29] MEDS ORDERED: NITROGLYCERIN SL 0.4 MG/TAB TAB SL PRN (19:04)
[2018-06-29 19:06] LABS: Basophils # (auto) 0.03 K/uL (0-0.2); Basophils % (auto) 0.5 %; Eosinophils # (auto) 0.18 K/uL (0-0.5); Eosinophils % (auto) 2.9 %; Hematocrit (blood only) 42.3 % (42-52); Hemoglobin 13.9 g/dL (14.0-18.0); Immature Granulocytes # (auto) 0.01 K/uL (0.00-0.02); Immature Granulocytes % (auto) 0.2 %; Lymphocytes # (auto) 2.46 K/uL (1.2-3.4); Lymphocytes % (auto) 39.3 %; Mean Corpuscular Hgb Conc 32.9 g/dL (32-36); Mean Corpuscular Volume 88.3 fL (80-100); Mean Platelet Volume 11.1 fL (7.4-10.4); Monocytes # (auto) 0.64 K/uL (0.11-0.59); Monocytes % (auto) 10.2 %; Neutrophils # (auto) 2.94 K/uL (1.4-6.5); Neutrophils % (auto) 46.9 %; Platelet Count 150 K/uL (130-400); RDW Coefficient of Variation 15.1 % (11.5-14.5); RDW Standard Deviation 48.9 fL (36.4-46.3); Red Blood Count 4.79 M/uL (4.7-6.1); White Blood Count 6.26 K/uL (4.8-10.8)
--- NOTE | 2018-06-29 19:17 | CT Scan Report ---
CT head/brain wo con CLINICAL HISTORY: 72 years-old Male presenting with BROCK, HTN. TECHNIQUE: Multidetector CT imaging of the head was performed without the use of intravenous contrast . IV contrast: None. One or more dose lowering techniques were used consistent with the principles of ALARA (as low as reasonably achievable), including automatic exposure control, mA or kV adjustment t o individual patient size, and/or use of iterative reconstruction. COMPARISON: 08/21/2011. CT DOSE (mGy.cm): The estimated cumulative dose is 773.57 mGy.cm. FINDINGS: Cake Maker topogram: Unremarkable. Ventricles and sulci normal in size. Probable small right parafalcine arachnoid cyst near the vertex unchanged from prior. No hemorrhage. Periventricular and subcortical white matter hypoattenuation, no nspecific but likely indicative of chronic small vessel ischemic change. No acute territorial infarct . No mass effect or midline shift. No extra-axial fluid collection. Paranasal sinuses and mastoid air cells clear. Calvarium intact. Intracranial atherosclerosis noted. IMPRESSION: 1. Chronic small vessel ischemic change. No acute intracranial abnormality. Electronically signed by: Aristides Roman M.D. 06/29/2018 7:16 PM
[2018-06-29 19:23] LABS: Alanine Aminotransferase 39 U/L (12-78); Albumin Level 3.9 gm/dl (3.4-5.0); Aspartate Aminotransferase 25 U/L (15-37); Blood Urea Nitrogen 21 mg/dl (7-18); Calcium 9.7 mg/dl (8.5-10.1); Carbon Dioxide 30 mmol/L (21-32); Chloride 102 mmol/L (98-107); Creatinine Clr Calc Pharmacy 81.9 ml/min; Est GFR (African American) 70.8; Est GFR (Non-African American) 61.1; Glucose 182 mg/dl (70-99); Sodium 139 mmol/L (136-145)
[2018-06-29 19:28] LABS: Albumin Globulin Ratio 0.9 (0.9-2); Alkaline Phosphatase 101 U/L (45-117); Bilirubin,Total 0.3 mg/dl (0.2-1); Globulin 4.2 gm/dl (2.5-4.0); Total Protein 8.1 gm/dl (6.4-8.2); Troponin I < 0.015 ng/ml (0-0.045)
--- NOTE | 2018-06-29 19:33 | XRay Report ---
XR chest 1V portable CLINICAL HISTORY: 72 years-old Male presenting with Chest Pain. TECHNIQUE: Portable upright AP view of the chest was obtained. COMPARISON: 06/10/2014. FINDINGS: Cardiomediastinal silhouette normal. No focal opacity. No large effusion or pneumothorax. Degenerativ e changes of the thoracic spine. IMPRESSION: 1. No acute cardiopulmonary disease. Electronically signed by: Aristides Roman M.D. 06/29/2018 7:32 PM
[2018-06-29] MEDS ORDERED: cloNIDine HCl 0.1 MG TAB PO ONE (21:05)
[2018-06-30] MEDS ORDERED: ONDANSETRON INJ 2 MG/ML 2 ML VIAL IV PRN (00:19)
[2018-06-30] MEDS ORDERED: LABETALOL HCL IV 5 MG/ML 20ML IV PRN (00:19)
[2018-06-30] MEDS ORDERED: NITROGLYCERIN SL 0.4 MG/TAB TAB SL PRN (00:19)
[2018-06-30] MEDS ORDERED: ENALAPRIL MALEATE 5 MG TAB PO STA (00:19)
[2018-06-30] MEDS ORDERED: ACETAMINOPHEN 325 MG TAB PO PRN (00:19)
--- NOTE | 2018-06-30 00:20 | Emergency Department Note ---
Entered by Mary Lou Gaxiola acting as a scribe for Octavia Jarrell MD History of Present Illness General Chief complaint: Chest Pain Stated complaint: CHEST PAIN AND HYPERTENSION Source: patient History of Present Illness Onset (ago): hour(s) (1400 today) Location: head and chest Pain Consistency: + other (persistent since 1400 today) Maximum Pain Intensity: 6 Quality: + other (chest pain) Associated symptoms: + headaches (severe) and + other (Positive hypertension, sorethroat, ringing in his ears. Negative hx of heart disease, previous catheterizations ) The patient is a 72 year old male who presents to the Emergency Room with complaints of chest pain beginning at 1400 today. 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 2 days ago, he states he noticed his bp was high, so he called his PCP, Dr. Denney, Family Medicine who recommended the patient come to the ED for evaluation of his symptoms. At 1400, the patient developed chest pain which has been persistent since its onset. Pt notes he has a severe headache and ringing in his ears, hx of heart disease, previous catheterizations. Home Medications Home Medications Medication Instructions Recorded Confirmed Type Januvia 100 mg PO HS 06/29/18 06/29/18 History acetaminophen [Tylenol Arthritis 1 - 2 tab PO Q12H PRN 06/29/18 06/29/18 History Pain] cranberry 400 mg PO DAILY 06/29/18 06/29/18 History finasteride [Proscar] 5 mg PO HS 06/29/18 06/29/18 History glyburide 10 mg PO BID 06/29/18 06/29/18 History naproxen sodium [Aleve] 220 mg PO BID PRN 06/29/18 06/29/18 History pantoprazole [Protonix] 40 mg PO DAILY 06/29/18 06/29/18 History phenazopyridine [Azo Urinary Pain 0 mg PO TID PRN 06/29/18 06/29/18 History Relief] triamterene-hydrochlorothiazid 1 tab PO DAILY 06/29/18 06/29/18 History [Maxzide-25mg] clonidine 1 patch TRANSDERMAL CQWK 30 Days 07/01/18 Rx #30 ea enalapril maleate 10 mg PO QAM 30 Days #30 tab 07/01/18 Rx Allergies Allergy/AdvReac Type Severity Reaction Status Date / Time Cipro AdvReac Intermediate cramping/na Verified 07/10/17 09:05 usea ciprofloxacin AdvReac Intermediate cramping/na Verified 06/29/18 19:43 usea Past Med/Surg History Medical History Hematochezia (Acute) Balanitis (Acute) Bladder calculus Cystitis (Acute) Diarrhea (Acute) Febrile illness (Acute) Hematuria (Acute) Urinary tract infection (Acute) Urinary tract infection (Acute) Urinary tract infection (Acute) Surgical History No significant past surgical history Family History Other No pertinent family history Social History Preferred Language: Italian Communication Ability: Effective Drencher Required: Yes Beliefs That Will Affect Care: None marital status: Current Living Situation: Spouse Current Living Situation Comment: house Other Information That Helps Us Care for You: No Feels Safe at Home: Yes Safety Concerns: Feels Safe At This Time Smoking Status: Never smoker Do You Dip or Chew Tobacco: No Second Hand Exposure: No Hx Alcohol Use: No Hx Substance Use: No Review of Systems See HPI for pertinent positives & negatives. and A total of 10 systems reviewed and were otherwise negative Physical Exam Vital Signs Vital Signs - 24 hr 07/01/18 10:22 07/01/18 15:16 07/01/18 16:06 Temperature 36.6 C 36.7 C Temperature Source Oral Oral Pulse Rate [Right Finger] 70 72 Respiratory Rate 19 19 Respiratory Effort / Characteristics Non-Labored Respiratory Depth Normal Normal Respiratory Pattern Regular Blood Pressure [Left Arm] 159/83 H 158/97 H Blood Pressure [Right Arm] Blood Pressure Mean [Left Arm] 108 117 Blood Pressure Position [Left Arm] Sitting Sitting Pulse Oximetry 96 95 Oxygen Delivery Method Room Air Room Air Room Air 07/01/18 17:54 Temperature 36.7 C Temperature Source Pulse Rate [Right Finger] 72 Respiratory Rate 19 Respiratory Effort / Characteristics Respiratory Depth Respiratory Pattern Blood Pressure [Left Arm] 158/97 H Blood Pressure [Right Arm] 155/97 H Blood Pressure Mean [Left Arm] Blood Pressure Position [Left Arm] Pulse Oximetry 95 Oxygen Delivery Method Vital signs reviewed. General: Obese. Generally well appearing male. Noted to be markedly hypertensive. HEENT: No scleral icterus, PERRLA, neck supple. Atraumatic. Cardiovascular: Regular rate and rhythm, no extra sounds. Pulmonary: Clear to auscultation bilaterally, normal work of breathing. Abdomen: Soft, nontender, nondistended, positive bowel sounds. Musculoskeletal: Atraumatic. Positive dependent edema. Neurologic: Patient awake alert and oriented x 3. Skin: Warm, dry, no rash Course 1828: The patient was evaluated in room B3. A complete history and physical examination was performed. 2132: I reviewed the patient's case with Dr. Webb, [facility] Hospitalist. He will evaluate the patient for further management. Administered Medications Discontinued Medications Clonidine HCl (Catapres) 0.2 mg PO NOW ONE Stop: 06/29/18 21:06 Last Admin: 06/29/18 21:23 Dose: 0.2 mg Documented by: [id number] Clonidine HCl (Nknqfjhs-Ylj-6 0.3mg/24hr) 1 patch TD CQWK RAS Stop: 07/31/18 08:59 Last Admin: 07/01/18 09:58 Dose: 1 patch Documented by: [id number] Enalapril Maleate (Vasotec) 10 mg PO QAM RAS Stop: 07/30/18 08:59 Last Admin: 07/01/18 09:19 Dose: 10 mg Documented by: [id number] Admin: 06/30/18 07:52 Dose: 10 mg Documented by: [id number] Enalapril Maleate (Vasotec) 5 mg PO NOW STA Stop: 06/30/18 00:20 Last Admin: 06/30/18 01:29 Dose: 5 mg Documented by: [id number] Finasteride (Proscar) 5 mg PO HS RAS Stop: 07/30/18 20:59 Last Admin: 06/30/18 20:32 Dose: 5 mg Documented by: [id number] Hydralazine HCl (Hydralazine Hcl) 10 mg IV NOW STA Stop: 06/29/18 18:31 Last Admin: 06/29/18 18:51 Dose: 10 mg Documented by: [id number] Hydralazine HCl (Hydralazine Hcl) 10 mg IV NOW STA Stop: 06/29/18 20:04 Last Admin: 06/29/18 20:22 Dose: 10 mg Documented by: [id number] Insulin Aspart (Novolog Flexpen) 0 units SC ACHS [facility] Stop: 07/30/18 00:59 Last Admin: 07/01/18 17:29 Dose: 6 units Documented by: [id number] Cosigned by: [id number] Admin: 07/01/18 12:14 Dose: 10 units Documented by: [id number] Cosigned by: [id number] Admin: 07/01/18 09:17 Dose: 7 units Documented by: [id number] Cosigned by: [id number] Admin: 06/30/18 20:31 Dose: 2 units Documented by: [id number] Cosigned by: [id number] Admin: 06/30/18 19:25 Dose: Not Given Documented by: [id number] Cosigned by: [id number] Admin: 06/30/18 12:00 Dose: 8 units Documented by: [id number] Cosigned by: [id number] Admin: 06/30/18 07:54 Dose: 5 units Documented by: [id number] Cosigned by: [id number] Admin: 06/30/18 01:30 Dose: 4 units Documented by: [id number] Cosigned by: [id number] Insulin Glargine (Lantus Solostar Pen) 7 units SC BID [facility] Stop: 07/30/18 08:59 Last Admin: 07/01/18 09:18 Dose: 7 units Documented by: [id number] Cosigned by: [id number] Admin: 06/30/18 20:31 Dose: 7 units Documented by: [id number] Cosigned by: [id number] Admin: 06/30/18 07:53 Dose: 7 units Documented by: [id number] Cosigned by: [id number] Labetalol HCl (Normodyne) 10 mg IV Q4H PRN PRN Reason: Hypertension Stop: 07/30/18 00:18 Last Admin: 06/30/18 09:58 Dose: 10 mg Documented by: [id number] Cosigned by: [id number] Miscellaneous (Check Clonidine Patch) 1 ea N/A QS [facility] Stop: 07/30/18 07:59 Last Admin: 07/01/18 00:13 Dose: 1 ea Documented by: [id number] Admin: 06/30/18 17:14 Dose: 1 ea Documented by: [id number] Admin: 06/30/18 07:55 Dose: 1 ea Documented by: [id number] Miscellaneous (Remove Clonidine Patch) 1 ea N/A CQWK [facility]; Protocol Stop: 07/31/18 08:44 Last Admin: 07/01/18 09:59 Dose: 1 ea Documented by: [id number] Miscellaneous (Check Clonidine Patch) 1 ea N/A QS [facility] Stop: 07/31/18 15:59 Last Admin: 07/01/18 17:26 Dose: 1 ea Documented by: [id number] Nitroglycerin (Nitrostat) 0.4 mg SL PRN PRN PRN Reason: Chest Pain Stop: 07/29/18 19:03 Last Admin: 06/29/18 20:23 Dose: 0.4 mg Documented by: [id number] Pantoprazole Sodium (Protonix) 40 mg PO DAILY [facility] Stop: 07/30/18 08:59 Last Admin: 07/01/18 09:19 Dose: 40 mg Documented by: [id number] Admin: 06/30/18 07:52 Dose: 40 mg Documented by: [id number] Perflutren Lipid Microsphere (Definity) 2 ml IV ONCE ONE Stop: 06/30/18 07:10 Last Admin: 06/30/18 07:09 Dose: 2 ml Documented by: [id number] Triamterene/HCTZ (Maxzide 37.5/25mg) 1 tab PO DAILY [facility] Stop: 07/30/18 08:59 Last Admin: 07/01/18 09:19 Dose: 1 tab Documented by: [id number] Admin: 06/30/18 07:52 Dose: 1 tab Documented by: [id number] Medical Decision Making Differential Diagnosis Differential diagnosis: Etiologies such as cardiac ischemia, aortic dissection, pulmonary embolism, pneumonia, pneumothorax, musculoskeletal, infections, pericarditis, myocarditis, esophageal rupture, gastrointestinal, as well as others were entertained. Medical Records Attestation: I reviewed the patient's medical records. Home Medications Current Medication List: was personally reviewed by me Laboratory Data Attestation: I reviewed the patient's lab results. Result diagrams: 06/30/18 05:14 06/30/18 05:14 Lab Results 06/29/18 06/29/18 06/30/18 Range/Units 18:55 18:55 01:12 WBC 6.26 (4.8-10.8) K/uL RBC 4.79 (4.7-6.1) M/uL Hgb 13.9 L (14.0-18.0) g/dL Hct 42.3 (42-52) % MCV 88.3 (80-100) fL MCH 29.0 (25-34) pg MCHC 32.9 (32-36) g/dL RDW Std Deviation 48.9 H (36.4-46.3) fL RDW Coeff of Izabela 15.1 H (11.5-14.5) % Plt Count 150 (130-400) K/uL MPV 11.1 H (7.4-10.4) fL Immature Gran % (Auto) 0.2 % Neut % (Auto) 46.9 % Lymph % (Auto) 39.3 % [place] % (Auto) 10.2 % Eos % (Auto) 2.9 % Baso % (Auto) 0.5 % Immature Gran # (Auto) 0.01 (0.00-0.02) K/uL Neut # (Auto) 2.94 (1.4-6.5) K/uL Lymph # (Auto) 2.46 (1.2-3.4) K/uL [place] # (Auto) 0.64 H (0.11-0.59) K/uL Eos # (Auto) 0.18 (0-0.5) K/uL Baso # (Auto) 0.03 (0-0.2) K/uL Sodium 139 (136-145) mmol/L Potassium 4.0 (3.5-5.1) mmol/L Chloride 102 (98-107) mmol/L Carbon Dioxide 30 (21-32) mmol/L Anion Gap 7.0 (3-11) BUN 21 H (7-18) mg/dl Creatinine 1.19 (0.6-1.4) mg/dl Est Cr Clr Drug Dosing 81.9 ml/min Est GFR ( Amer) 70.8 Est GFR (Non-Af Amer) 61.1 BUN/Creatinine Ratio 18.0 (10-20) Glucose 182 H (70-99) mg/dl POC Glucose 260 H (70-99) Estimat Average Glucose mg/dl Hemoglobin A1c (4.5-5.6) % Calcium 9.7 (8.5-10.1) mg/dl Magnesium (1.8-2.4) mg/dl Total Bilirubin 0.3 (0.2-1) mg/dl AST 25 (15-37) U/L ALT 39 (12-78) U/L Alkaline Phosphatase 101 (45-117) U/L Troponin I < 0.015 (0-0.045) ng/ml Total Protein 8.1 (6.4-8.2) gm/dl Albumin 3.9 (3.4-5.0) gm/dl Globulin 4.2 H (2.5-4.0) gm/dl Albumin/Globulin Ratio 0.9 (0.9-2) Lipase 117 (73-393) U/L 06/30/18 06/30/18 06/30/18 Range/Units 05:14 05:14 05:14 WBC 6.37 (4.8-10.8) K/uL RBC 4.41 L (4.7-6.1) M/uL Hgb 12.5 L (14.0-18.0) g/dL Hct 38.6 L (42-52) % MCV 87.5 (80-100) fL MCH 28.3 (25-34) pg MCHC 32.4 (32-36) g/dL RDW Std Deviation 49.4 H (36.4-46.3) fL RDW Coeff of Izabela 15.3 H (11.5-14.5) % Plt Count 139 (130-400) K/uL MPV 11.2 H (7.4-10.4) fL Immature Gran % (Auto) 0.2 % Neut % (Auto) 49.4 % Lymph % (Auto) 33.6 % [place] % (Auto) 13.7 % Eos % (Auto) 2.8 % Baso % (Auto) 0.3 % Immature Gran # (Auto) 0.01 (0.00-0.02) K/uL Neut # (Auto) 3.15 (1.4-6.5) K/uL Lymph # (Auto) 2.14 (1.2-3.4) K/uL [place] # (Auto) 0.87 H (0.11-0.59) K/uL Eos # (Auto) 0.18 (0-0.5) K/uL Baso # (Auto) 0.02 (0-0.2) K/uL Sodium 136 (136-145) mmol/L Potassium 3.8 (3.5-5.1) mmol/L Chloride 102 (98-107) mmol/L Carbon Dioxide 28 (21-32) mmol/L Anion Gap 6.0 (3-11) BUN 19 H (7-18) mg/dl Creatinine 1.05 (0.6-1.4) mg/dl Est Cr Clr Drug Dosing 93.4 ml/min Est GFR ( Amer) 82.4 Est GFR (Non-Af Amer) 71.1 BUN/Creatinine Ratio 18.5 (10-20) Glucose 191 H (70-99) mg/dl POC Glucose (70-99) Estimat Average Glucose 197 mg/dl Hemoglobin A1c 8.5 H (4.5-5.6) % Calcium 8.9 (8.5-10.1) mg/dl Magnesium 2.2 (1.8-2.4) mg/dl Total Bilirubin (0.2-1) mg/dl AST (15-37) U/L ALT (12-78) U/L Alkaline Phosphatase (45-117) U/L Troponin I < 0.015 (0-0.045) ng/ml Total Protein (6.4-8.2) gm/dl Albumin (3.4-5.0) gm/dl Globulin (2.5-4.0) gm/dl Albumin/Globulin Ratio (0.9-2) Lipase (73-393) U/L 06/30/18 06/30/18 06/30/18 Range/Units 07:21 11:25 11:36 WBC (4.8-10.8) K/uL RBC (4.7-6.1) M/uL Hgb (14.0-18.0) g/dL Hct (42-52) % MCV (80-100) fL MCH (25-34) pg MCHC (32-36) g/dL RDW Std Deviation (36.4-46.3) fL RDW Coeff of Izabela (11.5-14.5) % Plt Count (130-400) K/uL MPV (7.4-10.4) fL Immature Gran % (Auto) % Neut % (Auto) % Lymph % (Auto) % [place] % (Auto) % Eos % (Auto) % Baso % (Auto) % Immature Gran # (Auto) (0.00-0.02) K/uL Neut # (Auto) (1.4-6.5) K/uL Lymph # (Auto) (1.2-3.4) K/uL [place] # (Auto) (0.11-0.59) K/uL Eos # (Auto) (0-0.5) K/uL Baso # (Auto) (0-0.2) K/uL Sodium (136-145) mmol/L Potassium (3.5-5.1) mmol/L Chloride (98-107) mmol/L Carbon Dioxide (21-32) mmol/L Anion Gap (3-11) BUN (7-18) mg/dl Creatinine (0.6-1.4) mg/dl Est Cr Clr Drug Dosing ml/min Est GFR ( Amer) Est GFR (Non-Af Amer) BUN/Creatinine Ratio (10-20) Glucose (70-99) mg/dl POC Glucose 194 H 225 H (70-99) Estimat Average Glucose mg/dl Hemoglobin A1c (4.5-5.6) % Calcium (8.5-10.1) mg/dl Magnesium (1.8-2.4) mg/dl Total Bilirubin (0.2-1) mg/dl AST (15-37) U/L ALT (12-78) U/L Alkaline Phosphatase (45-117) U/L Troponin I < 0.015 (0-0.045) ng/ml Total Protein (6.4-8.2) gm/dl Albumin (3.4-5.0) gm/dl Globulin (2.5-4.0) gm/dl Albumin/Globulin Ratio (0.9-2) Lipase (73-393) U/L 06/30/18 06/30/18 07/01/18 Range/Units 16:28 20:30 07:24 WBC (4.8-10.8) K/uL RBC (4.7-6.1) M/uL Hgb (14.0-18.0) g/dL Hct (42-52) % MCV (80-100) fL MCH (25-34) pg MCHC (32-36) g/dL RDW Std Deviation (36.4-46.3) fL RDW Coeff of Izabela (11.5-14.5) % Plt Count (130-400) K/uL MPV (7.4-10.4) fL Immature Gran % (Auto) % Neut % (Auto) % Lymph % (Auto) % [place] % (Auto) % Eos % (Auto) % Baso % (Auto) % Immature Gran # (Auto) (0.00-0.02) K/uL Neut # (Auto) (1.4-6.5) K/uL Lymph # (Auto) (1.2-3.4) K/uL [place] # (Auto) (0.11-0.59) K/uL Eos # (Auto) (0-0.5) K/uL Baso # (Auto) (0-0.2) K/uL Sodium (136-145) mmol/L Potassium (3.5-5.1) mmol/L Chloride (98-107) mmol/L Carbon Dioxide (21-32) mmol/L Anion Gap (3-11) BUN (7-18) mg/dl Creatinine (0.6-1.4) mg/dl Est Cr Clr Drug Dosing ml/min Est GFR ( Amer) Est GFR (Non-Af Amer) BUN/Creatinine Ratio (10-20) Glucose (70-99) mg/dl POC Glucose 167 H 198 H 190 H (70-99) Estimat Average Glucose mg/dl Hemoglobin A1c (4.5-5.6) % Calcium (8.5-10.1) mg/dl Magnesium (1.8-2.4) mg/dl Total Bilirubin (0.2-1) mg/dl AST (15-37) U/L ALT (12-78) U/L Alkaline Phosphatase (45-117) U/L Troponin I (0-0.045) ng/ml Total Protein (6.4-8.2) gm/dl Albumin (3.4-5.0) gm/dl Globulin (2.5-4.0) gm/dl Albumin/Globulin Ratio (0.9-2) Lipase (73-393) U/L 07/01/18 07/01/18 Range/Units 11:06 16:27 WBC (4.8-10.8) K/uL RBC (4.7-6.1) M/uL Hgb (14.0-18.0) g/dL Hct (42-52) % MCV (80-100) fL MCH (25-34) pg MCHC (32-36) g/dL RDW Std Deviation (36.4-46.3) fL RDW Coeff of Izabela (11.5-14.5) % Plt Count (130-400) K/uL MPV (7.4-10.4) fL Immature Gran % (Auto) % Neut % (Auto) % Lymph % (Auto) % [place] % (Auto) % Eos % (Auto) % Baso % (Auto) % Immature Gran # (Auto) (0.00-0.02) K/uL Neut # (Auto) (1.4-6.5) K/uL Lymph # (Auto) (1.2-3.4) K/uL [place] # (Auto) (0.11-0.59) K/uL Eos # (Auto) (0-0.5) K/uL Baso # (Auto) (0-0.2) K/uL Sodium (136-145) mmol/L Potassium (3.5-5.1) mmol/L Chloride (98-107) mmol/L Carbon Dioxide (21-32) mmol/L Anion Gap (3-11) BUN (7-18) mg/dl Creatinine (0.6-1.4) mg/dl Est Cr Clr Drug Dosing ml/min Est GFR ( Amer) Est GFR (Non-Af Amer) BUN/Creatinine Ratio (10-20) Glucose (70-99) mg/dl POC Glucose 243 H 168 H (70-99) Estimat Average Glucose mg/dl Hemoglobin A1c (4.5-5.6) % Calcium (8.5-10.1) mg/dl Magnesium (1.8-2.4) mg/dl Total Bilirubin (0.2-1) mg/dl AST (15-37) U/L ALT (12-78) U/L Alkaline Phosphatase (45-117) U/L Troponin I (0-0.045) ng/ml Total Protein (6.4-8.2) gm/dl Albumin (3.4-5.0) gm/dl Globulin (2.5-4.0) gm/dl Albumin/Globulin Ratio (0.9-2) Lipase (73-393) U/L Imaging Data Radiologist's Impression: Radiology results as stated below per my review and the radiologist's interpretation: XR chest 1V portable CLINICAL HISTORY: 72 years-old Male presenting with Chest Pain. TECHNIQUE: Portable upright AP view of the chest was obtained. COMPARISON: 06/10/2014. FINDINGS: Cardiomediastinal silhouette normal. No focal opacity. No large effusion or pneumothorax. Degenerative changes of the thoracic spine. IMPRESSION: 1. No acute cardiopulmonary disease. Electronically signed by: Aristides Roman M.D. 06/29/2018 7:[address] head/brain wo con CLINICAL HISTORY: 72 years-old Male presenting with BROCK, HTN. TECHNIQUE: Multidetector CT imaging of the head was performed without the use of intravenous contrast. IV contrast: None. One or more dose lowering techniques were used consistent with the principles of ALARA (as low as reasonably achievable), including automatic exposure control, mA or kV adjustment to individual patient size, and/or use of iterative reconstruction. COMPARISON: 08/21/2011. CT DOSE (mGy.cm): The estimated cumulative dose is 773.57 mGy.cm. FINDINGS: Turning Lathe Tender topogram: Unremarkable. Ventricles and sulci normal in size. Probable small right parafalcine arachnoid cyst near the vertex unchanged from prior. No hemorrhage. Periventricular and subcortical white matter hypoattenuation, nonspecific but likely indicative of chronic small vessel ischemic change. No acute territorial infarct. No mass effect or midline shift. No extra-axial fluid collection. Paranasal sinuses and mastoid air cells clear. Calvarium intact. Intracranial atherosclerosis noted. IMPRESSION: 1. Chronic small vessel ischemic change. No acute intracranial abnormality. Electronically signed by: Aristides Roman M.D. 06/29/2018 7:16 PM ECG Data Attestation: I personally reviewed and interpreted this ECG as follows: Indication: chest pain Rate (beats per minute): 75 Rhythm: sinus rhythm Findings: + 1st degree AV block; no acute ischemic change and no ectopy Blood Pressure Blood Pressure Findings: Elevated blood pressure Blood Pressure Disposition: elevated BP felt to be situational MDM Narrative This patient was evaluated and appeared to be in no significant distress. IV access was obtained and laboratory work was drawn. The patient was placed on the quality assurance monitor and found to be in a sinus rhythm with a first-degree AV block. There is no evidence of acute ischemia. Patient is noted to be markedly hypertensive. He did receive 10 mg of IV hydralazine without significant improvement. He was given sublingual nitroglycerin. Patient states he took his blood pressure medicines as prescribed. He was given a second dose of IV hydralazine for persistent hypertension. CT scan of the head was performed and is negative. Patient was then given clonidine 0.2 mg p.o. after consultation with the pharmacist. Laboratory work is fairly unrevealing. The patient persisted with some epigastric pain. Troponin is negative. Given the patient's persistent hypertension and chest discomfort, the hospitalist service was consulted for further management. Patient is aware of the plan and agrees. Impression & Plan Hypertensive urgency Critical Care Time I have personally spent greater than 30 minutes of critical care time in the direct management of this patient. This includes bedside care, interpretation of diagnostic studies, and testing, discussion with consultants, patient, and family members, and other required patient management activities. This 30 minutes is in excess of all separately billable procedures. Critical Care Time: Yes Total Critical Care Time: 30 Discharge Plan Visit Data *Final* Discharge Date/Time: 06/30/18 00:45 Chief Complaint: Chest Pain Stated Complaint: CHEST PAIN AND HYPERTENSION ED Provider: Octavia Jarrell Discharge Problem: Hypertensive urgency Patient Disposition: Admitted As Inpatient Discharge Instructions Interventions: ED Discharge Assessment Last Done: 06/29/18 23:08 The scribe's documentation has been prepared under my direction and personally reviewed by me in its entirety. I confirm that the note above accurately reflects all work, treatment, procedures, and medical decision making performed by me.
[2018-06-30] MEDS ORDERED: CARBOHYDRATES FOR HYPOGLYCEMIA PO PRN (01:00)
[2018-06-30] MEDS ORDERED: GLUCOSE 40% GEL 15 GM TUBE PO PRN (01:00)
[2018-06-30] MEDS ORDERED: DEXTROSE 50% 50 ML SYRINGE IV PRN (01:00)
[2018-06-30] MEDS ORDERED: GLUCAGON FOR INJ 1 MG VIAL IM PRN (01:00)
[2018-06-30] MEDS ORDERED: GLUCOSE 10 TABS/TUBE PO PRN (01:00)
[2018-06-30] MEDS: INSULIN ASPART 100 UNITS/ML 3 ML PEN SC SCH ×5 (01:30→20:31)
[2018-06-30 06:03] LABS: Basophils # (auto) 0.02 K/uL (0-0.2); Basophils % (auto) 0.3 %; Eosinophils # (auto) 0.18 K/uL (0-0.5); Eosinophils % (auto) 2.8 %; Hematocrit (blood only) 38.6 % (42-52); Hemoglobin 12.5 g/dL (14.0-18.0); Immature Granulocytes # (auto) 0.01 K/uL (0.00-0.02); Immature Granulocytes % (auto) 0.2 %; Lymphocytes # (auto) 2.14 K/uL (1.2-3.4); Lymphocytes % (auto) 33.6 %; Mean Corpuscular Hgb Conc 32.4 g/dL (32-36); Mean Corpuscular Volume 87.5 fL (80-100); Mean Platelet Volume 11.2 fL (7.4-10.4); Monocytes # (auto) 0.87 K/uL (0.11-0.59); Monocytes % (auto) 13.7 %; Neutrophils # (auto) 3.15 K/uL (1.4-6.5); Neutrophils % (auto) 49.4 %; Platelet Count 139 K/uL (130-400); RDW Coefficient of Variation 15.3 % (11.5-14.5); RDW Standard Deviation 49.4 fL (36.4-46.3); Red Blood Count 4.41 M/uL (4.7-6.1); White Blood Count 6.37 K/uL (4.8-10.8)
[2018-06-30 06:40] LABS: BUN Creatinine Ratio 18.5 (10-20); Blood Urea Nitrogen 19 mg/dl (7-18); Calcium 8.9 mg/dl (8.5-10.1); Carbon Dioxide 28 mmol/L (21-32); Chloride 102 mmol/L (98-107); Creatinine Clr Calc Pharmacy 93.4 ml/min; Est GFR (African American) 82.4; Est GFR (Non-African American) 71.1; Glucose 191 mg/dl (70-99); Magnesium 2.2 mg/dl (1.8-2.4); Potassium 3.8 mmol/L (3.5-5.1); Sodium 136 mmol/L (136-145)
[2018-06-30 06:45] LABS: Troponin I < 0.015 ng/ml (0-0.045)
[2018-06-30] MEDS ORDERED: PERFLUTREN LIPID MICROSPHERE (DEFINITY) IV ONE (07:09)
[2018-06-30 07:13] LABS: Estimated Average Glucose 197 mg/dl; Hemoglobin A1C 8.5 % (4.5-5.6)
[2018-06-30] MEDS: TRIAMTERENE/HCTZ 37.5/25MG TAB PO SCH (07:52)
[2018-06-30] MEDS: PANTOprazole 40 MG TAB PO SCH (07:52)
[2018-06-30] MEDS: ENALAPRIL MALEATE 10 MG TAB PO SCH (07:52)
[2018-06-30] MEDS: INSULIN GLARGINE SOLOSTAR 100 UNITS/ML 3 ML PEN SC SCH ×2 (07:53→20:31)
[2018-06-30] MEDS: CHECK CLONIDINE PATCH PLACEMENT SCH ×2 (07:55→17:14)
--- NOTE | 2018-06-30 08:20 | History and Physical Report ---
DATE OF ADMISSION: 06/29/2018 CHIEF COMPLAINT: Elevated blood pressure and chest pain. HISTORY OF PRESENT ILLNESS: This 72-year-old male with past medical history significant for type 2 diabetes, bronchiectasis, hypertension, GERD, esophagitis, morbid obesity, history of rheumatic fever, history of bladder calculus, bladder catheters, BPH and recurrent urinary tract infection. The patient was status post open up the bipolar resection, stone fragmented and removed with no residuals, he had a bipolar button vaporization of the prostate and cystolitholapaxy, since then his BPH symptoms improved and the recurrent urinary infections improved, comes with chest pain, elevated blood pressure. The patient recently saw his family doctor. blood pressure was high and at this time doctor thought of sending him in the hospital but his blood pressure improved in the clinic and then he was sent home, but today again he was not feeling good, then he still some left-sided chest pain which worried him and came to the ER. In the ER, his systolic blood pressure was 240s. He was given 2 doses of IV hydralazine and clonidine 0.2 mg and currently his systolic blood pressure 170s, and is feeling much better. Chest pain is gone. Resting comfortably and hemodynamically stable. is in the room. He has headaches. Denies any blurred visions. Earlier he was having ringing in the ears but has gone now, that has improved now. No runny nose, no sore throat, no difficulty swallowing. Appetite is okay. No shortness of breath, no cough, no fever, no chills, no nausea, no abdominal pain. No sweating. Normal bowel and bladder movements. No hematuria, no hematochezia, no melena, no rash, left buttock was sometime swelled and had surgery for that leg. Ambulates okay. Climb steps okay. Appetite is okay. His thinks he might have sleep apnea because he stops breathing in the night sometimes. ALLERGIES: CIPRO. PAST MEDICAL HISTORY: As mentioned above. PAST SURGICAL HISTORY: Status post bipolar button vaporization of the prostate and cystolitholapaxy. MEDICATIONS: Currently the patient is on Flomax 0.4 mg daily, Catapres 0.2 mg transdermal once weekly, enalapril 5 mg p.o. daily, glyburide 5 mg b.i.d., Protonix 40 mg daily, Maxzide 37.5/25 mg p.o. daily, cranberry 400 mg p.o. daily, Proscar 5 mg p.o. at bedtime, glyburide 10 mg p.o. b.i.d., naproxen 200 mg p.o. b.i.d. p.r.n., Januvia 100 mg p.o. at bedtime. FAMILY HISTORY: Significant for the patient is up-to-date. SOCIAL HISTORY: No smoking, no alcohol use, no drug use. and lives with his . REVIEW OF SYMPTOMS: As per HPI. Rest of symptoms negative. PHYSICAL EXAMINATION: GENERAL: The patient is morbidly obese, not in acute distress. VITAL SIGNS: Temperature 36.7, pulse 75, respiratory rate 23, blood pressure when he came to 243/118, currently 170/94, oxygen 96% room air. HEENT: No pallor, no icterus. Pupils equal, round, and reactive to light. NECK: No JVD, masses, no carotid bruits. CARDIOVASCULAR: S1, S2 heard, regular rate and rhythm, no murmur, no gallop. RESPIRATORY SYSTEM: Normal AP diameter. No accessory muscle use. No wheezing, no crackles. ABDOMEN: Soft, bowel sounds present. Nontender. No distention. CENTRAL NERVOUS SYSTEM: Cranial nerves II-XII grossly intact. Nonfocal. EXTREMITIES: No edema, no erythema. LABS: WBC 26.2, hemoglobin 13.9, hematocrit 42.3, platelets 150. Sodium 139, potassium 4, chloride 102, bicarbonate 30, BUN 21, creatinine 1.1, serum glucose 182, calcium 9.7, total bilirubin 0.3, AST 25, ALT 39, alkaline phosphatase is 101. Troponin I less than 0.015. Lipase 117. CT of the head, chronic small vessel ischemic change, no acute intracranial abnormality seen. Chest x-ray: No acute cardiopulmonary disease. EKG: Sinus rhythm with first degree AV block at a rate of 75, no acute ST-T changes seen. ASSESSMENT AND PLAN: This is a 72-year-old male who presents with hypertensive urgency. 1. Hypertensive urgency. Continue home medication of clonidine patch and Maxzide. The patient uses a couple of doses of IV and 1 dose of p.o. clonidine and blood pressure is better, but will increase the Vasotec to 10 mg, will use extra 5 mg now and also place on IV labetalol p.r.n. and closely monitor and adjust the blood pressure pills. The patient might also having some sleep apnea. We will do a nocturnal pulse ox. We will see the patient in the hospital. 2. Chest pain most likely from the elevated blood, currently chest pain free. Initial troponin and EKG unremarkable. We will follow serial cardiac enzymes, repeat EKG. Follow echocardiogram and closely monitor in tele floor. 3. Morbid obesity, thinks the patient as apneic episodes in the night. We will do nocturnal pulse ox study and may need outpatient sleep study, could be contributing to his uncontrolled blood pressure. 4. Diabetes. We will hold his home medication of glyburide and Januvia. Place him on Lantus and insulin sliding scale. Follow his HbA1c levels. 5. History of BPH. Continue Proscar. 6. Gastroesophageal reflux disease. Continue PPI. 7. Deep venous thrombosis prophylaxis. Sequential compression devices for now. 8. Disposition: Close monitoring in the tele floor. Level 1 full code. MTDD
--- NOTE | 2018-06-30 17:42 | Hospitalist Progress Note ---
Date of Service June 30, 2018 Assessment & Plan (1) Hypertensive urgency: BP on admission 243/118 On Clonidine patch and Maxzide Vasotec increased to 10mg Will need outpatient HTN work up and sleep study ECHO showed LV systolic function is normal with EF 60-65% 2. Chest pain Mostly related from the elevated blood EKG showed no ischemic changes Troponin x3 negative Currently denies any chest pain ECHO showed no wall motion abnormality 3. Morbid obesity Lifestyle modification 4. Diabetes. Most recent HBa1c 8.5 Hold glyburide and Januvia. On insulin sliding scale Monitor BS 5. BPH. Continue Proscar. 6. Gastroesophageal reflux disease. Continue PPI. 7. Deep venous thrombosis prophylaxis. On SCDs 8. CODE STATUS FULL CODE 9. Disposition Continue Monitor in Tele Subjective Pt was seen and examined Sitting in chair with no distress with at bedside Pt said that he feels fine Denies any chest pain, palpitation and SOB Physical Exam Physical Exam: General- No acute distress Head- atraumatic Eyes- PERRL, EOMI, ENT- oropharynx clear Neck- supple, no JVD Lungs- clear to auscultation Heart- regular rhythm; no murmur Abdomen- normal bowel sounds, soft, nontender Extremities- no calf tenderness Neuro- alert, oriented x 3; PERRL, EOMI; no facial palsy; no dysarthria Skin- warm & dry Results & Data Vital Signs (Past 12 Hours) Vital Signs Temp Pulse Pulse Resp BP BP Pulse Ox 06/30/18 15:25 36.6 C 65 18 145/99 H 95 06/30/18 11:04 36.6 C 64 18 187/89 H 181/84 H 97 06/30/18 08:00 64 06/30/18 07:07 36.6 C 64 18 185/97 H 184/88 H 95
[2018-06-30] MEDS ORDERED: FINASTERIDE 5 MG TAB PO SCH (21:00)
[2018-07-01] MEDS: CHECK CLONIDINE PATCH PLACEMENT SCH (00:13)
[2018-07-01] MEDS ORDERED: cloNIDine HCL 0.3 MG/24 HR TRANSDERM SYS TD SCH (09:00)
[2018-07-01] MEDS: INSULIN ASPART 100 UNITS/ML 3 ML PEN SC SCH ×3 (09:17→17:29)
[2018-07-01] MEDS: INSULIN GLARGINE SOLOSTAR 100 UNITS/ML 3 ML PEN SC SCH (09:18)
[2018-07-01] MEDS: PANTOprazole 40 MG TAB PO SCH (09:19)
[2018-07-01] MEDS: TRIAMTERENE/HCTZ 37.5/25MG TAB PO SCH (09:19)
[2018-07-01] MEDS: ENALAPRIL MALEATE 10 MG TAB PO SCH (09:19)
[2018-07-01] MEDS ORDERED: CHECK CLONIDINE PATCH PLACEMENT SCH (16:00)
--- NOTE | 2018-07-01 17:29 | Hospitalist Progress Note ---
Date of Service July 01, 2018 Assessment & Plan (1) Hypertensive urgency: BP on admission 243/118 Increased Clonidine patch to 0.3 mcg Continue Vasotec 10mg and Maxzide Will need outpatient HTN work up and sleep study Noctunal pulse oximetry done and pt does not require any oxygen ECHO showed LV systolic function is normal with EF 60-65% 2. Chest pain Mostly related from the elevated blood EKG showed no ischemic changes Troponin x3 negative Currently denies any chest pain ECHO showed no wall motion abnormality Resolved 3. Morbid obesity Lifestyle modification 4. Diabetes. Most recent HBa1c 8.5 Resume glyburide and Januvia. Has follow up appointment with Endocrinology On insulin sliding scale Monitor BS 5. BPH. Continue Proscar. 6. Gastroesophageal reflux disease. Continue PPI. 7. Deep venous thrombosis prophylaxis. On SCDs 8. CODE STATUS FULL CODE 9. Disposition Discharge home today Subjective Pt was seen and examined Sitting in chair with no distress with at bedside Very pleasant and happy Pt said that he feels fine Denies any chest pain, palpitation, dizziness and SOB Physical Exam Physical Exam: General- No acute distress Head- atraumatic Eyes- PERRL, EOMI, ENT- oropharynx clear Neck- supple, no JVD Lungs- clear to auscultation Heart- regular rhythm; no murmur Abdomen- normal bowel sounds, soft, nontender Extremities- no calf tenderness Neuro- alert, oriented x 3; PERRL, EOMI; no facial palsy; no dysarthria Skin- warm & dry Results & Data Vital Signs (Past 12 Hours) Vital Signs Temp Pulse Pulse Resp BP Pulse Ox 07/01/18 15:16 36.7 C 72 19 158/97 H 95 07/01/18 10:22 36.6 C 70 19 159/83 H 96 07/01/18 08:00 62 07/01/18 06:54 36.7 C 69 19 176/96 H 96
--- OUTSIDE RECORDS SUMMARY | 2018-07-06 15:47 | External Medical Summary | Continuity of Care Document ---
:1945 Author Name Mishel Duong, Provider Address Unavailable Unavailable , Care Team Providers Name Role Phone Alvaro Phelan M.D., I. Unavailable [email or web address] Elinor Hunter Unavailable Unavailable Unavailable Unavailable Unavailable Problems Recurrent UTI (599.0) (N39.0) BPH with obstruction/lower urinary tract symptoms (600.01) ( N40.1) Bladder calculus (594.1) (N21.0) Hypertension (401.9) (I10) Diabetes mellitus (250.00) (E11.9) Arthritis (716.90) (M19.90) Allergies and Adverse Reactions Cipro TABS (Allergy) Medications Pantoprazole Sodium 40 MG Oral Tablet Delayed Release Refills: 0 cloNIDine HCl - 0.2 MG Oral Tablet Refills: 0 Triamterene-HCTZ 37.5-25 MG Oral Tablet Refills: 0 Enalapril Maleate 5 MG Oral Tablet Refills: 0 Januvia TABS Refills: 0 glyBURIDE 5 MG Oral Tablet Refills: 0 Finasteride 5 MG Oral Tablet; TAKE 1 TABLET DAILY. Sterling Phelan I. Start: 12-Jun-2017 Quantity: 90 Refills: 3 Procedures History of hand surgery Status: Complete d Immunizations Immunizations not documented Family History Unknown Family Member No pertinent family history (V49.89) (Z78.9) Status: Active Comments: Family History Mother No pertinent family history (V49.89) (Z78.9) Status: Active Father No pertinent family history (V49.89) (Z78.9) Status: Active Social History - Smoking Status Never smoker Plan of Treatment Planned Encounters Appointment; Alvaro Phelan M.D. Start: 24-Mar-2019 11:00 R equest Planned Observations Planned Goals not documented Results No Known Results Results not documented Encounters Appointment; Alvaro Phelan M.D. 25-Mar-2018 11:00 Encounter Diagnosis: Problem not documented Appointment; Alvaro Phelan M.D. 24-Sep-2017 11:30 Encounter Diagnosis: Problem not documented Appointment; Alvaro Phelan M.D. 23-Jul-2017 11:55 Encounter Diagnosis: Problem not documented Appointment; Urology, Nursing Station 15-Jul-2017 15:20 Encounter Diagnosis: Problem not documented Appointment; Alvaro Phelan M.D. 10-Jul-2017 10:00 Encounter Diagnosis: Problem not documented Appointment; Alvaro Phelan M.D. 01-Jul-2017 13:25 Encounter Diagnosis: Problem not documented Appointment; Urology, Room 7 01-Jul-2017 13:15 Encounter Diagnosis: Problem not documented Appointment; Alvaro Phelan M.D. 12-Jun-2017 16:30 Encounter Diagnosis: Problem not documented Appointment; Alvaro Phelan M.D. 24-Mar-2019 11:00 Encounter Diagnosis: Problem not documented
--- NOTE | 2018-07-11 22:10 | Discharge Summary ---
Date of Service July 01, 2018 Admission HPI Per Admitting Provider CHIEF COMPLAINT: Elevated blood pressure and chest pain. HISTORY OF PRESENT ILLNESS: This 72-year-old male with past medical history significant for type 2 diabetes, bronchiectasis, hypertension, GERD, esophagitis, morbid obesity, history of rheumatic fever, history of bladder calculus, bladder catheters, BPH and recurrent urinary tract infection. The patient was status post open up the bipolar resection, stone fragmented and removed with no residuals, he had a bipolar button vaporization of the prostate and cystolitholapaxy, since then his BPH symptoms improved and the recurrent urinary infections improved, comes with chest pain, elevated blood pressure. The patient recently saw his family doctor. blood pressure was high and at this time doctor thought of sending him in the hospital but his blood pressure improved in the clinic and then he was sent home, but today again he was not feeling good, then he still some left-sided chest pain which worried him and came to the ER. In the ER, his systolic blood pressure was 240s. He was given 2 doses of IV hydralazine and clonidine 0.2 mg and currently his systolic blood pressure 170s, and is feeling much better. Chest pain is gone. Resting comfortably and hemodynamically stable. is in the room. He has headaches. Denies any blurred visions. Earlier he was having ringing in the ears but has gone now, that has improved now. No runny nose, no sore throat, no difficulty swallowing. Appetite is okay. No shortness of breath, no cough, no fever, no chills, no nausea, no abdominal pain. No sweating. Normal bowel and bladder movements. No hematuria, no hematochezia, no melena, no rash, left buttock was sometime swelled and had surgery for that leg. Ambulates okay. Climb steps okay. Appetite is okay. His thinks he might have sleep apnea because he stops breathing in the night sometimes. Admission Exam Per Admitting Provider GENERAL: The patient is morbidly obese, not in acute distress. VITAL SIGNS: Temperature 36.7, pulse 75, respiratory rate 23, blood pressure when he came to 243/118, currently 170/94, oxygen 96% room air. HEENT: No pallor, no icterus. Pupils equal, round, and reactive to light. NECK: No JVD, masses, no carotid bruits. CARDIOVASCULAR: S1, S2 heard, regular rate and rhythm, no murmur, no gallop. RESPIRATORY SYSTEM: Normal AP diameter. No accessory muscle use. No wheezing, no crackles. ABDOMEN: Soft, bowel sounds present. Nontender. No distention. CENTRAL NERVOUS SYSTEM: Cranial nerves II-XII grossly intact. Nonfocal. EXTREMITIES: No edema, no erythema. Principal Diagnosis Hypertensive Urgency Chest pain Diabetes Discharge Exam General- No acute distress Head- atraumatic Eyes- PERRL, EOMI, ENT- oropharynx clear Neck- supple, no JVD Lungs- clear to auscultation Heart- regular rhythm; no murmur Abdomen- normal bowel sounds, soft, nontender Extremities- no calf tenderness Neuro- alert, oriented x 3; PERRL, EOMI; no facial palsy; no dysarthria Skin- warm & dry Discharge Data Allergies Allergy/AdvReac Type Severity Reaction Status Date / Time Cipro AdvReac Intermediate cramping/na Verified 07/10/17 09:05 usea ciprofloxacin AdvReac Intermediate cramping/na Verified 06/29/18 19:43 usea Consultations 06/29/18 21:40 ED Decision to Admit Stat Ordered Studies 06/29/18 18:32 CT head/brain wo con Stat XR chest 1V portable CLINICAL HISTORY: 72 years-old Male presenting with Chest Pain. TECHNIQUE: Portable upright AP view of the chest was obtained. COMPARISON: 06/10/2014. FINDINGS: Cardiomediastinal silhouette normal. No focal opacity. No large effusion or pneumothorax. Degenerative changes of the thoracic spine. IMPRESSION: 1. No acute cardiopulmonary disease. Electronically signed by: Aristides Roman M.D. 06/29/2018 7:32 PM Dictated: 06/29/181930 Transcribed: 06/29/181930 CT head/brain wo con CLINICAL HISTORY: 72 years-old Male presenting with BROCK, HTN. TECHNIQUE: Multidetector CT imaging of the head was performed without the use of intravenous contrast. IV contrast: None. One or more dose lowering techniques were used consistent with the principles of ALARA (as low as reasonably achievable), including automatic exposure control, mA or kV adjustment to individual patient size, and/or use of iterative reconstruction. COMPARISON: 08/21/2011. CT DOSE (mGy.cm): The estimated cumulative dose is 773.57 mGy.cm. FINDINGS: [employer] topogram: Unremarkable. Ventricles and sulci normal in size. Probable small right parafalcine arachnoid cyst near the vertex unchanged from prior. No hemorrhage. Periventricular and subcortical white matter hypoattenuation, nonspecific but likely indicative of chronic small vessel ischemic change. No acute territorial infarct. No mass effect or midline shift. No extra-axial fluid collection. Paranasal sinuses and mastoid air cells clear. Calvarium intact. Intracranial atherosclerosis noted. IMPRESSION: 1. Chronic small vessel ischemic change. No acute intracranial abnormality. Electronically signed by: Aristides Roman M.D. 06/29/2018 7:16 PM Dictated: 06/29/181912 Transcribed: 06/29/18 191 Hospital Course (1) Hypertensive urgency: BP on admission 243/118 Increased Clonidine patch to 0.3 mcg Continue Vasotec 10mg and Maxzide Will need outpatient HTN work up and sleep study Noctunal pulse oximetry done and pt does not require any oxygen ECHO showed LV systolic function is normal with EF 60-65% 2. Chest pain Mostly related from the elevated blood EKG showed no ischemic changes Troponin x3 negative Currently denies any chest pain ECHO showed no wall motion abnormality Resolved 3. Morbid obesity Lifestyle modification 4. Diabetes. Most recent HBa1c 8.5 Resume glyburide and Januvia. Has follow up appointment with Endocrinology On insulin sliding scale Monitor BS 5. BPH. Continue Proscar. 6. Gastroesophageal reflux disease. Continue PPI. 7. Deep venous thrombosis prophylaxis. On SCDs 8. CODE STATUS FULL CODE 9. Disposition Discharge home today Total Time Total Time Spent Total Time Spent (In Minutes): 35 minutes Total Time Includes: Examination of the Patient, Discharge Planning, Medication Reconciliation, Communication With Other Providers and Other Discharge Plan Discharge Items Patient Disposition: Home - Self-Care Reason For Visit: CHEST PAIN Discharge Diagnosis: Hypertensive Urgency Chest pain Diabetes Discharge Goals: Decrease discomfort, Improve disease control, Improve function and Increase independence Activity: Resume your previous activity Non-emergency contact: Primary Care Provider Call non-emergency contact if: you have any medication questions Follow-up/Referrals: Roe Hayes M.D. [Primary Care Provider] - Diet: Carb Consistent or DM2 and Low Sodium (2gm) Addtl Provider Instructions: Please call to schedule a follow up appointment with your primary care provider within 1 week Monitor your blood pressure Monitor your blood sugar Bring your blood pressure and blood sugar log at your next appointment with your physician Follow a healthy diet with low salt and low carb Limited concentrated sweet intake Your physician can arrange for you to have a sleep study Check BMP in 1 week to monitor electrolytes and kidney function Check Hba1c in 3 months to monitor your diabetes Prescriptions: New enalapril maleate 10 mg Tablet 10 mg PO QAM 30 Days Qty: 30 RF: 0 clonidine 0.3 mg/24 hr Patch Weekly 1 patch transdermal CQWK 30 Days Qty: 30 RF: 0 Continued glyburide 5 mg tablet 10 mg PO BID RF: 0 acetaminophen [Tylenol Arthritis Pain] 650 mg Tablet Extended Release 1 - 2 tab PO Q12H PRN (Reason: Pain) RF: 0 phenazopyridine [Azo Urinary Pain Relief] 95 mg Tablet PO TID PRN (Reason: Pain) RF: 0 pantoprazole [Protonix] 40 mg tablet,delayed release (DR/EC) 40 mg PO DAILY RF: 0 naproxen sodium [Aleve] 220 mg Tablet 220 mg PO BID PRN (Reason: Pain) RF: 0 cranberry 400 mg Capsule 400 mg PO DAILY RF: 0 triamterene-hydrochlorothiazid [Maxzide-25mg] 37.5-25 mg tablet 1 tab PO DAILY RF: 0 finasteride [Proscar] 5 mg tablet 5 mg PO HS RF: 0 Januvia 100 mg tablet 100 mg PO HS RF: 0 Discontinued enalapril maleate [Vasotec] 5 mg tablet 5 mg PO DAILY RF: 0 clonidine [[id number]-SZX-3] 0.2 mg/24 hr patch weekly 1 patch topical WK RF: 0 Stand-Alone Forms: Call Back Authorization, [facility] Discharge Orders: Discharge Order (Routine); Ordered 07/01/18 Ordered By: Kamilla Chapin Admission Data Admit Date/Time: 06/30/18 00:42 Attending Provider: Kamilla Chapin Admit Provider: Murray Webb Primary Care Provider: Roe Hayes Other Providers: Murray Webb ; Coppes,Angel C Service: Telemetry Medical Other Interventions: Discharge Summary Assessment (RN) Last Done: 07/01/18 17:54 DC Date/Time DO NOT enter until pt leaves facility: 07/01/18 18:28
== END 2018-07-01 18:28 | disposition home or self-care (01) ==
LOC: ED 18:02 → SUATTDRO 22:49 → INTOOBSV 22:49 → 2E 22:49 → UNDODISOB 06-30 00:45

== ENCOUNTER 2018-09-09 14:18 | Inpatient (IN) ==
[2018-09-09] MEDS ORDERED: HydrALAZINE HCL 20 MG/ML VIAL IV STA (15:07)
[2018-09-09] MEDS ORDERED: NITROGLYCERIN 2% OINTMENT 30GM TUBE EXT STA (15:17)
[2018-09-09 15:19] LABS: Basophils # (auto) 0.03 K/uL (0-0.2); Basophils % (auto) 0.4 %; Eosinophils # (auto) 0.19 K/uL (0-0.5); Eosinophils % (auto) 2.7 %; Hematocrit (blood only) 37.8 % (42-52); Hemoglobin 12.4 g/dL (14.0-18.0); Immature Granulocytes # (auto) 0.01 K/uL (0.00-0.02); Immature Granulocytes % (auto) 0.1 %; Lymphocytes # (auto) 2.18 K/uL (1.2-3.4); Lymphocytes % (auto) 30.4 %; Mean Corpuscular Hgb Conc 32.8 g/dL (32-36); Mean Corpuscular Volume 84.8 fL (80-100); Mean Platelet Volume 11.4 fL (7.4-10.4); Monocytes # (auto) 0.44 K/uL (0.11-0.59); Monocytes % (auto) 6.1 %; Neutrophils # (auto) 4.31 K/uL (1.4-6.5); Neutrophils % (auto) 60.3 %; Platelet Count 168 K/uL (130-400); RDW Coefficient of Variation 14.3 % (11.5-14.5); RDW Standard Deviation 44.6 fL (36.4-46.3); Red Blood Count 4.46 M/uL (4.7-6.1); White Blood Count 7.16 K/uL (4.8-10.8)
--- NOTE | 2018-09-09 15:21 | XRay Report ---
XR chest 1V portable CLINICAL HISTORY: weakness distribution COMPARISON STUDY: 06/29/2018 FINDINGS: The bones soft tissues and hemidiaphragms are normal. The cardiomediastinal silhouette is n ormal. The lungs are clear. The pulmonary vasculature is normal. IMPRESSION: Negative chest. The above report was generated using voice recognition software. It may contain grammatical, syntax or spelling errors. Electronically signed by: Etienne Ramriez M.D. 09/09/2018 3:19 PM
[2018-09-09 15:35] LABS: Alanine Aminotransferase 32 U/L (12-78); Albumin Level 3.5 gm/dl (3.4-5.0); Aspartate Aminotransferase 18 U/L (15-37); BUN Creatinine Ratio 18.8 (10-20); Blood Urea Nitrogen 21 mg/dl (7-18); Calcium 9.5 mg/dl (8.5-10.1); Carbon Dioxide 31 mmol/L (21-32); Chloride 102 mmol/L (98-107); Creatinine Clr Calc Pharmacy 85.1 ml/min; Est GFR (African American) 74.1; Est GFR (Non-African American) 63.9; Glucose 180 mg/dl (70-99); Magnesium 2.2 mg/dl (1.8-2.4); Potassium 3.8 mmol/L (3.5-5.1); Sodium 138 mmol/L (136-145)
[2018-09-09 15:40] LABS: Albumin Globulin Ratio 0.9 (0.9-2); Alkaline Phosphatase 92 U/L (45-117); Bilirubin,Total 0.4 mg/dl (0.2-1); Globulin 3.9 gm/dl (2.5-4.0); Total Protein 7.4 gm/dl (6.4-8.2); Troponin I < 0.015 ng/ml (0-0.045)
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
[2018-09-09 16:32] LABS: Appearance Urine Clear (Clear); Bilirubin Urine Negative (Negative); Blood Urine Negative (Negative); Color Urine Yellow; Glucose Urine UA Negative (Negative); Ketones Urine Negative (Negative); Leukocyte Esterase Urine Negative (Negative); Nitrite Urine Negative (Negative); Protein Urine Negative (Negative); Specific Gravity Urine 1.014 (1.000-1.030); Urobilinogen Urine Negative (Negative); pH Urine 8.5 (4.5-7.5)
[2018-09-09] MEDS ORDERED: ENALAPRIL MALEATE 10 MG TAB PO ONE (16:45)
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
[2018-09-09] MEDS ORDERED: DEXTROSE 50% 50 ML SYRINGE IV PRN (19:48)
[2018-09-09] MEDS ORDERED: CARBOHYDRATES FOR HYPOGLYCEMIA PO PRN (19:48)
[2018-09-09] MEDS ORDERED: GLUCAGON FOR INJ 1 MG VIAL SQ PRN (19:48)
[2018-09-09] MEDS ORDERED: GLUCOSE 40% GEL 15 GM TUBE PO PRN (19:48)
[2018-09-09] MEDS ORDERED: GLUCOSE 10 TABS/TUBE PO PRN (19:48)
--- NOTE | 2018-09-09 20:38 | Consultation Report ---
DATE OF ADMISSION: 09/09/2018 DATE OF ADMISSION: 09/09/2018 DATE OF CONSULTATION: 09/09/2018 CONSULTATION REQUESTED BY: Dr. Darling. REASON FOR CONSULTATION: Chest pain in the setting of hypertensive urgency. HISTORY OF PRESENT ILLNESS: Mr. 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 He presented to [facility] Emergency Department at the direction of his primary care provider, Dr. Hayes, for chest pain in the setting of severely elevated hypertension. The patient has a longstanding history of hypertensive urgency including admission here in June 2018. He states he has been having chest pain off and on since June. He notes it occurs only was blood pressure goes up. He describes as a left-sided pressure sensation down his midclavicular line. There is associated with radiation down his left arm. States when this occurs, he checks his blood pressure and it is always above 200/100 with readings that have even been captured in the 240 range. He has been working with his primary care physician to help control his blood pressure; however, it is thusly not been successful. Most recently, he was started on metoprolol succinate with no improvement of his blood pressures. Yesterday, he states he was in his normal health; however, he started developing some chest discomfort after having a busy day including a hindu meeting. He took his blood pressure and it was in the 220/110 range. He took his evening medicines and decided to go to sleep to see if that would make it better. When he woke up this morning, he was still having the chest discomfort, not feeling well. He called his primary care physician's office who recommended he come to the Emergency Department. The patient states he has been compliant with his outpatient medical regimen. He has been ordered CPAP; however, he wore one time and he said that caused his chest pain and his blood pressure elevate. He then called the company and the company told him that he was not a CPAP candidate given the fact that he had rheumatic fever and his machine was taken from him. None of this makes sense from a medical standpoint. PAST SURGICAL HISTORY: Bladder calculi removal with a resection. MEDICAL ILLNESSES: 1. Hypertension. 2. Diabetes. 3. Morbid obesity. 4. Rheumatic fever at age 28. 5. Bronchiectasis. 6. GERD. 7. Obstructive sleep apnea, not tolerant of CPAP. 8. BPH. 9. History of bladder calculi. FAMILY HISTORY: Noncontributory. SOCIAL HISTORY: The patient denies any alcohol, tobacco or recreational drug use. He is and lives at home with his . REVIEW OF SYSTEMS: As per HPI, all other review of systems reviewed and negative at this time. ALLERGIES: CIPRO. MEDICATIONS AN OUTPATIENT: 1. Clonidine patch weekly. 2. Enalapril 10 mg daily. 3. Metoprolol succinate 12.5 mg b.i.d. 4. Maxzide 37.5/25 mg daily. 5. Januvia. 6. Glyburide. 7. Naproxen p.r.n. 8. Protonix. PHYSICAL EXAMINATION: VITALS: Temperature 36.7, pulse 66, respiratory rate 12, blood pressure 186/101. GENERAL: Awake, alert, oriented x3 in no acute distress. HEENT: Normocephalic, atraumatic. Pupils equal, round, reactive to light and accommodation. Extraocular muscles intact. Anicteric sclerae. Moist mucous membranes. NECK: No JVD, no bruit. CARDIOVASCULAR: Regular, but distant. Unable to appreciate murmurs, rubs or gallops. PULMONARY: Clear to auscultation bilaterally. No rales, rhonchi, or wheezing. ABDOMEN: Bowel sounds x4, soft. No rebound, guarding, tenderness. No organomegaly. EXTREMITIES: No clubbing, cyanosis. +1 nonpitting edema on the left, none on the right. SKIN: Warm and dry. TEST RESULTS/LABORATORY STUDIES OF SIGNIFICANCE: Sodium 138, potassium 38, BUN 21, creatinine 1.1. Troponin negative. IMPRESSION: 1. Hypertensive urgency. 2. Longstanding hypertension. 3. Obstructive sleep apnea, not tolerant of CPAP after a 30-minute trial. 4. Morbid obesity. 5. Diabetes. 6. History of rheumatic fever without cardiac manifestation. 7. Benign prostatic hypertrophy. RECOMMENDATIONS: It was my pleasure to see Mr. Quinones in consultation today. From a cardiac standpoint, the patient's blood pressure obviously needs to be under better control. With my recommendation, he has already received IV hydralazine 25 mg in the ER and his blood pressure has improved somewhat, so for better control at this point, will start him on hydralazine 25 mg p.o. t.i.d. with the first dose now. I will change his metoprolol to carvedilol 6.25 mg b.i.d. He is on a nitropatch, which will be continued and will start him on Imdur 60 mg daily in the a.m. as well. We will increase his enalapril dose, will give him an extra 20 mg now and he will be started on the max dose of 40 mg in the a.m. His Maxzide and clonidine patch will be continued. Consideration could also be given to starting him on terazosin for further blood pressure control given his history of BPH. Given the clinical setting of hypertensive urgency and the fact that his chest pain is somewhat reproducible, I do not believe this represents an acute ischemic event. I will also obtain carotid Dopplers and renal artery ultrasound. He does not have a history of tobacco abuse, but we will also obtain a limited ultrasound of the abdomen to rule out abdominal aortic aneurysm given his profound hypertension and limited abdominal examination given his obesity. Should the patient remain hypertensive overnight, I would recommend increasing the hydralazine as needed. Consideration could also be given to adding amlodipine or again terazosin.
[2018-09-09 20:57] LABS: Partial Thromboplastin Time 25.8 Seconds (21.0-31.0); Prothrombin Time 10.4 Seconds (9.0-12.0)
[2018-09-09] MEDS ORDERED: CARVEDILOL 6.25 MG TAB PO SCH (21:00)
[2018-09-09] MEDS ORDERED: cloNIDine HCL 0.3 MG/24 HR TRANSDERM SYS TD SCH (21:00)
--- NOTE | 2018-09-09 21:18 | Ultrasound Report ---
ULTRASOUND OF THE CAROTID ARTERIES CLINICAL HISTORY: uncontrolled hypertension CEREBROVASCULAR DISEASE COMPARISON STUDY: None. TECHNIQUE: Real-time, grayscale, and color Doppler sonography of the carotid arteries was performed. Imaging reviewed in the transverse and longitudinal planes. NASCET criteria was utilized for stenosis calcification. FINDINGS: There is minimal atherosclerotic plaque present . The peak systolic velocity within the right internal carotid artery is 72 cm/sec. The systolic velocity ratio of right internal to common carotid artery is 1. The peak systolic velocity within the left internal carotid artery is 61 cm/sec. The systolic velocity ratio left internal to common carotid artery is 0.7. Antegrade flow is seen in the vertebral arteries. The external carotid arteries are patent. IMPRESSION: No evidence of hemodynamically significant carotid stenosis. Electronically signed by: Kavon Hastings M.D. 09/09/2018 9:17 PM
--- NOTE | 2018-09-09 21:19 | Ultrasound Report ---
US AAA screening CLINICAL HISTORY: AAA screening COMPARISON STUDY: CT scan dated 06/01/2017 FINDINGS: Examination was limited from technical standpoint due to the patient's large body habitus. Small portions of the abdominal aorta were not visualized. There is no aneurysmal dilatation. IMPRESSION: No evidence of abdominal aortic aneurysm Electronically signed by: Kavon Hastings M.D. 09/09/2018 9:18 PM
--- NOTE | 2018-09-09 21:20 | Ultrasound Report ---
US duplex renal artery CLINICAL HISTORY: uncontrolled hypertension COMPARISON STUDY: No previous studies for comparison. FINDINGS: The peak systolic velocity within the aorta was 43 cm/s. Peak systolic velocity within the right renal artery was 69 cm/s. The peak systolic velocity within the left renal artery was 53 cm/s. The renal veins were patent. There was no evidence of hydronephrosis. IMPRESSION: No ultrasonographic evidence of renal artery stenosis. Electronically signed by: Kavon Hastings M.D. 09/09/2018 9:19 PM
[2018-09-09] MEDS: ENOXAPARIN INJ 40 MG/0.4 ML SYR SQ SCH (21:44)
[2018-09-09] MEDS: FINASTERIDE 5 MG TAB PO SCH (21:47)
[2018-09-09] MEDS: NITROGLYCERIN 2% OINTMENT 30GM TUBE EXT SCH (21:57)
[2018-09-09] MEDS: INSULIN ASPART 100 UNITS/ML 3 ML PEN SC SCH (21:57)
[2018-09-09] MEDS: CHECK CLONIDINE PATCH PLACEMENT SCH (23:09)
[2018-09-10 03:10] LABS: Hematocrit (blood only) 36.6 % (42-52); Hemoglobin 12.1 g/dL (14.0-18.0); Mean Corpuscular Hgb Conc 33.1 g/dL (32-36); Mean Corpuscular Volume 84.3 fL (80-100); Mean Platelet Volume 11.2 fL (7.4-10.4); Platelet Count 144 K/uL (130-400); RDW Coefficient of Variation 14.5 % (11.5-14.5); Red Blood Count 4.34 M/uL (4.7-6.1); White Blood Count 8.03 K/uL (4.8-10.8)
[2018-09-10 03:27] LABS: Blood Urea Nitrogen 20 mg/dl (7-18); Calcium 8.8 mg/dl (8.5-10.1); Carbon Dioxide 27 mmol/L (21-32); Chloride 104 mmol/L (98-107); Creatinine Clr Calc Pharmacy 88.3 ml/min; Est GFR (African American) 77.3; Est GFR (Non-African American) 66.7; Glucose 180 mg/dl (70-99); Potassium 3.6 mmol/L (3.5-5.1); Sodium 138 mmol/L (136-145)
[2018-09-10 03:32] LABS: Troponin I < 0.015 ng/ml (0-0.045)
[2018-09-10] MEDS: NITROGLYCERIN 2% OINTMENT 30GM TUBE EXT SCH (04:07)
[2018-09-10] MEDS: CARVEDILOL 6.25 MG TAB PO SCH ×2 (05:06→21:05)
[2018-09-10] MEDS: HydrALAZINE TAB 50 MG TAB PO SCH ×3 (05:07→21:05)
[2018-09-10] MEDS ORDERED: HydrALAZINE TAB 50 MG TAB PO SCH (09:00)
[2018-09-10] MEDS: ENALAPRIL MALEATE 10 MG TAB PO SCH (09:23)
[2018-09-10] MEDS: ISOSORBIDE MONO EXTENDED REL 60 MG TABCR PO SCH (09:23)
[2018-09-10] MEDS: INSULIN ASPART 100 UNITS/ML 3 ML PEN SC SCH ×4 (09:23→20:59)
[2018-09-10] MEDS: PANTOprazole 40 MG TAB PO SCH (09:23)
[2018-09-10] MEDS: TRIAMTERENE/HCTZ 37.5/25MG TAB PO SCH (09:23)
[2018-09-10] MEDS: CHECK CLONIDINE PATCH PLACEMENT SCH ×2 (09:31→16:16)
[2018-09-10] MEDS: ACETAMINOPHEN 325 MG TAB PO PRN (12:58)
--- NOTE | 2018-09-10 16:49 | Hospitalist Progress Note ---
Date of Service September 10, 2018 Assessment & Plan (1) Hypertensive urgency: Blood pressure is more controlled after addition of Imdur XR 60 mg p.o. every morning and hydralazine 50 mg p.o. 3 times daily. Metoprolol was changed to Coreg yesterday at 6.25 mg p.o. twice daily. He continues on Maxide 37.5/25 p.o. and Enalapril 40mg every morning and Catapres No. 3 q. 7 days. He is feeling well and is not expensing any side effects in the medication. He did have some headache with the Nitropaste which has been discontinued at this time. Continue to monitor blood pressure overnight per cardiology plan with possible discharge in a.m. (2) Chest pain: Resolved with better control of blood pressure, serial troponin enzymes were trended and negative. No signs of active ACS at this time. (3) Diabetes mellitus, type II: A1c is 8.5 in June 2018 reflecting improved control since prior checks. Continue to hold Januvia and glyburide while hospitalized and given insulin per sliding scale instructions with carb coverage. (4) BPH (benign prostatic hyperplasia): -Continue finasteride (5) GERD (gastroesophageal reflux disease): -Continue Protonix (6) Obesity: (7) VINICIUS (obstructive sleep apnea): Unsuccessful trial of CPAP, defer to primary care provider to continue working this issue. (8) DVT prophylaxis: Lovenox 40 Full code Disposition-to home in a.m. pending stability of blood pressure overnight. Cheryl Davis DO [facility] Hospitalist Subjective Patient feeling well, denies drowsiness. Results chest pain has resolved since yesterday. Feeling well. Tolerating p.o. Blood pressure has improved to 140s systolic the majority of today. Review of Systems Review of Systems: All systems reviewed & are unremarkable except as noted in HPI & below Physical Exam Physical Exam: CONSTITUTIONAL: WNWD, vitals as above, generally well- appearing EYES: PERRL, normal conjunctivae, no scleral icterus ENT: MMM RESPIRATORY: clear to auscultation bilaterally, no crackles, rales or wheezes, normal respiratory effort CARDIOVASCULAR: regular rate and rhythm, S1 and 2 heard without murmurs, gallops or rubs, no JVD, no peripheral edema GASTROINTESTINAL: normal bowel sounds, soft, nontender, nondistended MUSCULOSKELETAL: strength 5/5 throughout, head is normocephalic and atraumatic SKIN: warm and dry NEUROLOGIC: CN 2-12 grossly intact, no sensory deficit, normal cognition, normal speech, ambulatory PSYCHIATRIC: alert cooperative and oriented to person, place and time. Euthymic mood, makes good eye contact, language grossly intact, recent and remote memory grossly intact. Results & Data Vital Signs (Past 12 Hours) Vital Signs Temp Pulse Pulse Resp BP BP Pulse Ox 09/10/18 14:58 36.4 C L 61 20 145/77 H 96 09/10/18 11:30 36.9 C 62 20 146/69 H 96 09/10/18 08:00 57 L 09/10/18 07:00 36.6 C 60 20 167/82 H 95 09/10/18 06:44 61 165/77 H Laboratory Results Short CBC 09/10/18 Range/Units 02:55 WBC 8.03 (4.8-10.8) K/uL Hgb 12.1 L (14.0-18.0) g/dL Hct 36.6 L (42-52) % Plt Count 144 (130-400) K/uL BMP 09/10/18 02:55 Sodium 138 Potassium 3.6 Chloride 104 Carbon Dioxide 27 BUN 20 H Creatinine 1.10 Glucose 180 H Calcium 8.8 Cardiac Enzymes 09/09/18 09/10/18 Range/Units 21:53 02:55 Troponin I < 0.015 < 0.015 (0-0.045) ng/ml Medications Administered Current Inpatient Medications Acetaminophen (Tylenol) 650 mg PO Q4H PRN PRN Reason: Pain or Fever Stop: 10/09/18 19:47 Last Admin: 09/10/18 12:58 Dose: 650 mg Documented by: Carvedilol (Coreg) 6.25 mg PO BID ON LICENSE OF [facility] Stop: 10/10/18 04:59 Last Admin: 09/10/18 05:06 Dose: 6.25 mg Documented by: Clonidine HCl ([id number]-[id number] 0.3mg/24hr) 1 patch TD Q7D@2100 ON LICENSE OF [facility] Stop: 10/09/18 20:59 Last Admin: 09/09/18 21:45 Dose: 1 patch Documented by: Dextrose (Dextrose 50%) 25 - 50 ml IV UD PRN; Protocol PRN Reason: Hypoglycemia Protocol Stop: 10/09/18 19:47 Enalapril Maleate (Vasotec) 40 mg PO QAM RAS Stop: 10/10/18 08:59 Last Admin: 09/10/18 09:23 Dose: 40 mg Documented by: Enoxaparin Sodium (Lovenox) 40 mg SQ Q24H RAS Stop: 10/09/18 20:59 Last Admin: 09/09/18 21:44 Dose: 40 mg Documented by: Finasteride (Proscar) 5 mg PO HS RAS Stop: 10/09/18 20:59 Last Admin: 09/09/18 21:47 Dose: 5 mg Documented by: Glucagon (Glucagen) 1 mg SQ UD PRN; Protocol PRN Reason: Hypoglycemia Protocol Stop: 10/09/18 19:47 Glucose (Glucose 40%) 15 - 30 gm PO UD PRN; Protocol PRN Reason: Hypoglycemia Protocol Stop: 10/09/18 19:47 Glucose (Dex4 Glucose) 4 - 8 tabs PO UD PRN; Protocol PRN Reason: Hypoglycemia Protocol Stop: 10/09/18 19:47 Hydralazine HCl (Apresoline) 50 mg PO TID RAS Stop: 10/10/18 04:59 Last Admin: 09/10/18 14:20 Dose: 50 mg Documented by: Insulin Aspart (Novolog Flexpen) 0 units SC ACHS ON LICENSE OF [facility] Stop: 10/09/18 20:59 Last Admin: 09/10/18 12:51 Dose: 5 units Documented by: Isosorbide Mononitrate (Imdur Extended Rel) 60 mg PO QAM ON LICENSE OF [facility] Stop: 10/10/18 08:59 Last Admin: 09/10/18 09:23 Dose: 60 mg Documented by: Miscellaneous (Check Clonidine Patch) 1 ea N/A QS ON LICENSE OF [facility] Stop: 10/10/18 00:00 Last Admin: 09/10/18 16:16 Dose: 1 ea Documented by: Miscellaneous (Remove Clonidine Patch) 1 ea N/A Q7D@9 ON LICENSE OF [facility] Stop: 10/09/18 20:58 Last Admin: 09/09/18 21:44 Dose: 1 ea Documented by: Miscellaneous (Carbohydrates For Hypoglycemia) 15 - 30 gm PO UD PRN PRN Reason: Hypoglycemia Treatment Stop: 10/09/18 19:47 Pantoprazole Sodium (Protonix) 40 mg PO QAM RAS Stop: 10/10/18 08:59 Last Admin: 09/10/18 09:23 Dose: 40 mg Documented by: Triamterene/HCTZ (Maxzide 37.5/25mg) 1 tab PO [facility] Stop: 10/10/18 08:59 Last Admin: 09/10/18 09:23 Dose: 1 tab Documented by:
[2018-09-10] MEDS: ENOXAPARIN INJ 40 MG/0.4 ML SYR SQ SCH (20:59)
[2018-09-10] MEDS: FINASTERIDE 5 MG TAB PO SCH (21:05)
[2018-09-11] MEDS: CHECK CLONIDINE PATCH PLACEMENT SCH ×3 (00:16→15:42)
[2018-09-11] MEDS ORDERED: TERAZOSIN HCL 1 MG CAP PO ONE (08:10)
[2018-09-11] MEDS: CARVEDILOL 6.25 MG TAB PO SCH (10:14)
[2018-09-11] MEDS: ENALAPRIL MALEATE 10 MG TAB PO SCH (10:14)
[2018-09-11] MEDS: ISOSORBIDE MONO EXTENDED REL 60 MG TABCR PO SCH (10:14)
[2018-09-11] MEDS: PANTOprazole 40 MG TAB PO SCH (10:15)
[2018-09-11] MEDS: TRIAMTERENE/HCTZ 37.5/25MG TAB PO SCH (10:16)
[2018-09-11] MEDS: INSULIN ASPART 100 UNITS/ML 3 ML PEN SC SCH ×2 (10:20→12:44)
[2018-09-11] MEDS: ACETAMINOPHEN 325 MG TAB PO PRN (10:22)
--- NOTE | 2018-09-11 12:51 | Cardiology Progress Note ---
Date of Service September 11, 2018 Assessment & Plan (1) Hypertensive urgency: bp variable overnight but after hydralazine uptitrated and terazosin added this AM, now 133/71 ("Best reading I've had in years.") would check one more bp this afternoon, if remains below 160 systolic would d/c to home on current regimen my office will call to arrange f/u with me as an outpaient in 2 weeks (2) Chest pain: likely secondary to hypertensive urgency, however, will require ischemic work up to be completed as an outpatient my office will arrange Lexiscan nuclear stress test Subjective Pt seen and examined, oob bed, walking in room, at bedside. States that he feels well. No recurrence of chest pain. BP remained elevated overnight, hydralazine uptitrated. Denies cp, sob, palpitations, lightheadedness or dizziness. tele reviewed: sinus rhythm without arrhythmia or significant ectopy. Review of Systems Review of Systems: All systems reviewed & are unremarkable except as noted in HPI & below Physical Exam Physical Exam: General: Awake, alert and oriented x 3. No acute distress. HEENT: Normocephalic, atraumatic. Pupils equal, round and reactive to light and accommodation. Extraocular muscles are intact. Anicteric sclera. Moist mucous membranes. Neck: No JVD. No bruit. Cardiovascular: Regular. Positive S-4. Normal S-1 and S-2. No S-3. No murmurs or rubs. Pulmonary: Clear to auscultation B/L. No rales, rhonchi or wheezing Abdomen: Bowel sounds x 4, soft. No rebound, guarding or tenderness. No organomegaly. Extremities: No clubbing, cyanosis or edema. +2 pedal pulses bilaterally. Skin: Warm and dry. Results & Data Vital Signs (Past 12 Hours) Vital Signs Temp Pulse Pulse Resp BP BP Pulse Ox 09/11/18 11:25 37.0 C 74 19 133/71 95 09/11/18 10:13 69 179/74 H 96 09/11/18 09:00 80 09/11/18 07:42 37.1 C 55 L 20 172/91 H 97 09/11/18 03:20 36.7 C 71 18 164/92 H 95 09/11/18 01:29 144/72 H 181/78 H
[2018-09-11] MEDS ORDERED: SODIUM CHLORIDE 0.9% 1000ML 500 ML IV SCH (13:00)
--- NOTE | 2018-09-11 15:18 | Discharge Summary ---
Date of Service September 11, 2018 Admission HPI Per Admitting Provider Pt is 73 y/o M with PMH HTN, DM II, GERD, obesity, esophagitis, BPH, pulmonary fibrosis, sleep apnea, TIA, h/o rheumatic fever presented to ER with chest pain. Patient reports today was sitting when he developed left anterior chest pressure with some associated dizziness and BROCK. Denies SOB, palpitations, syncope or radiating pain. Patient states his blood pressure has been elevated in the past when he took his blood pressure was 213/101. Patient states when his blood pressure is elevated he gets ringing in ears and usually gets some anterior chest pressure and dizziness. Hx hospitalization at [facility] in 06/2018 for HTN urgency and at that time his enalapril was increased from 5mg daily to 10mg daily. He has been started on metoprolol succinate 12.5mg in PM by PCP. Pt reports continued elevated BP's at home and reports med compliance. Patient reports recently diagnosed with sleep apnea and he was tried on CPAP 3 to 4 weeks ago and patient reports was unable to tolerate because tachycardia. Denies fever/chills, diaphoresis, N/V/D/C, syncope, vision changes, neck pain, orthopnea, cough, sore throat, choking, otalgia, rhinorrhea, abdominal pain, paresthesias, weakness, extremity weakness, extremity edema, rashes, urinary symptoms. In ER pt's BP 206/96, P: 59, R: 18, pulse ox: 97% on RA. Since being in ER and receiving hydralazine 10mg IV and 1inch nitropaste pt reports his CP came down from 8/10 to 4/10 on pain scale. Hx echo 06/2018: EF: 60-65%, grade I diastolic dysfunction Admission Exam Per Admitting Provider General: no acute distress, obese Head: normocephalic, atraumatic Eyes: PERRL, EOM's intact, conjunctiva non-injected, anicteric ENT: normal inspection external ears, nose, mucous membranes moist Neck: supple, trachea midline Lungs: clear, no respiratory distress, no wheezing/rhonchi/rales CV: RRR, no murmur, no pretibial edema; chest wall +tenderness to palpation, no rashes noted Abd: normal BS, soft, non-tender Ext: no cyanosis, no calf tenderness Neuro: A&O x 3, no focal deficits noted, normal affect Skin: warm, dry Principal Diagnosis Hypertensive urgency Chest pain, resolved Discharge Data Allergies Allergy/AdvReac Type Severity Reaction Status Date / Time Cipro AdvReac Intermediate cramping/na Verified 07/10/17 09:05 usea ciprofloxacin AdvReac Intermediate cramping/na Verified 09/09/18 14:53 usea Consultations 09/09/18 16:08 ED Decision to Admit Stat 09/09/18 19:48 Consult Cardiology Routine Ordered Studies US AAA screening CLINICAL HISTORY: AAA screening COMPARISON STUDY: CT scan dated 06/01/2017 FINDINGS: Examination was limited from technical standpoint due to the patient's large body habitus. Small portions of the abdominal aorta were not visualized. There is no aneurysmal dilatation. IMPRESSION: No evidence of abdominal aortic aneurysm ULTRASOUND OF THE CAROTID ARTERIES FINDINGS: There is minimal atherosclerotic plaque present . The peak systolic velocity within the right internal carotid artery is 72 cm/sec. The systolic velocity ratio of right internal to common carotid artery is 1. The peak systolic velocity within the left internal carotid artery is 61 cm/sec. The systolic velocity ratio left internal to common carotid artery is 0.7. Antegrade flow is seen in the vertebral arteries. The external carotid arteries are patent. IMPRESSION: No evidence of hemodynamically significant carotid stenosis. US duplex renal artery CLINICAL HISTORY: uncontrolled hypertension COMPARISON STUDY: No previous studies for comparison. FINDINGS: The peak systolic velocity within the aorta was 43 cm/s. Peak systolic velocity within the right renal artery was 69 cm/s. The peak systolic velocity within the left renal artery was 53 cm/s. The renal veins were patent. There was no evidence of hydronephrosis. IMPRESSION: No ultrasonographic evidence of renal artery stenosis. XR chest 1V portable CLINICAL HISTORY: weakness distribution COMPARISON STUDY: 06/29/2018 FINDINGS: The bones soft tissues and hemidiaphragms are normal. The cardiomediastinal silhouette is normal. The lungs are clear. The pulmonary vasculature is normal. IMPRESSION: Negative chest. Hospital Course (1) Hypertensive urgency: (2) Chest pain: (3) Diabetes mellitus, type II: (4) BPH (benign prostatic hyperplasia): (5) GERD (gastroesophageal reflux disease): (6) Obesity: (7) VINICIUS (obstructive sleep apnea): 73-year-old man with history of hypertension diabetes and sleep apnea presented with elevated blood pressure to the emergency room. He had chest pain that was reproducible on palpation, which improved with blood pressure control. Serial troponin enzymes were drawn and negative. An EKG revealed sinus rhythm with a rate of 63 with a first-degree AV block and premature atrial complexes. There was no sign of active ischemia. An echocardiogram revealed normal LV chamber size with mild concentric LVH, a normal LV systolic function with an EF of 55 to 60%. No segmental left ventricular wall motion maladies were noted. He had grade 1 diastolic dysfunction and poorly visualized valvular structures without significant stenosis or regurgitation by Doppler. He has untreated sleep apnea felt to be contributing to his uncontrolled high blood pressure and will need follow-up with his primary care provider regarding CPAP therapy. He was started on Nitropaste and hydralazine and his enalapril was increased to 40 mg daily. Maxzide was continued. Renal Doppler ultrasound revealed no signs of renal artery stenosis. A carotid doppler did not show any hemodynamically significant carotid stenosis. An abdominal arterial ultrasound revealed no evidence of abdominal aortic aneurysm. Cardiology was consulted and changed his metoprolol to Coreg. His clonidine patch was continued. His blood pressure began to respond and he stayed in the 130-140 systolic range but then rudy overnight. The following morning terazosin was added to his regimen but he experienced a hypotensive episode with symptoms following administration. He improved with a small bolus of IV fluids and terazosin was not continued. Repeat blood pressure was in the 120s systolic and he was feeling well. [id number] exam at time of discharge revealed a hemodynamically stable patient who was afebrile. He was in no acute distress. Cardiac and lung exams were normal. Abdomen was soft and nondistended. He had no peripheral edema. Skin was warm and dry. He was discharged in stable condition with close primary care follow-up recommended for repeat check of blood pressure and to monitor kidney and electrolyte function with medication changes. Of note, it was also recommended by cardiology that he undergo an outpatient Lexiscan nuclear stress test as a result of his chest pain. This will be scheduled by [facility] in [place]. Total Time Total Time Spent Total Time Spent (In Minutes): 60 Total Time Includes: Examination of the Patient, Discharge Planning, Medication Reconciliation, Communication With Other Providers and Other (arrange followup) Discharge Plan Discharge Items Patient Disposition: Home - Self-Care Reason For Visit: HTN URGENCY Discharge Diagnosis: Hypertensive Urgency Discharge Goals: Improve disease control Non-emergency contact: Primary Care Provider Call non-emergency contact if: you have any medication questions, your symptoms worsen, your pain is not controlled and you have a fever Follow-up/Referrals: Roe Haeys M.D. [Primary Care Provider] - Diet: Carb Consistent or DM2 and Heart Healthy Addtl Provider Instructions: Please take all medications as instructed on discharge list below. You have an appointment with Dr. Yosi Hayes on Friday, 09/14 at 1000 to ensuring you are doing well after discharge from the hospital. You will need to have non-fasting bloodwork in two weeks time after changes to your blood pressure medications. This may be ordered by Dr. Hayes. Dr. Mccormack from [facility] in [place] is recommending a stress test as a result of the chest pain you experienced. His office should be contacting you to schedule that within the next week. It was a pleasure taking care of you! Please call if you have any questions or problems. You can reach a [facility] hospitalist on duty at [facility] 24 hours a day by calling [phone]. Take care of yourself. Cheryl Davis, DO [facility] Hospitalist Prescriptions: New enalapril maleate 10 mg Tablet 40 mg PO QAM Qty: 30 RF: 1 carvedilol 6.25 mg Tablet 6.25 mg PO BID Qty: 60 RF: 1 hydralazine 25 mg Tablet 75 mg PO TID Qty: 180 RF: 1 isosorbide mononitrate 60 mg Tablet Extended Release 24 Hr 60 mg PO QAM Qty: 30 RF: 1 Continued glyburide 5 mg tablet 5 mg PO BID RF: 0 acetaminophen [Tylenol Arthritis Pain] 650 mg Tablet Extended Release 1 - 2 tab PO Q12H PRN (Reason: Pain) RF: 0 pantoprazole [Protonix] 40 mg tablet,delayed release (DR/EC) 40 mg PO QAM RF: 0 naproxen sodium [Aleve] 220 mg Tablet 220 mg PO PM PRN (Reason: Pain) RF: 0 cranberry 400 mg Capsule 400 mg PO DAILY RF: 0 triamterene-hydrochlorothiazid [Maxzide-25mg] 37.5-25 mg tablet 1 tab PO QAM RF: 0 finasteride [Proscar] 5 mg tablet 5 mg PO HS RF: 0 Januvia 100 mg tablet 100 mg PO HS RF: 0 clonidine 0.3 mg/24 hr patch weekly 1 patch topical WK RF: 0 Probiotic 3 billion cell Capsule 3,000 mmu cells PO DAILY RF: 0 Discontinued enalapril maleate 5 mg tablet 10 mg PO DAILY RF: 0 metoprolol succinate 25 mg tablet extended release 24 hr 12.5 mg PO PM RF: 0 Stand-Alone Forms: [facility] Discharge Orders: Discharge Order (Routine); Ordered 09/11/18 Ordered By: Cheryl Davis Admission Data Admit Date/Time: 09/10/18 16:52 Attending Provider: Cheryl Davis Admit Provider: Jt Zazueta Primary Care Provider: Roe Hayes Other Providers: Raymond Mccormack ; Jt Zazueta Service: Telemetry Medical
--- NOTE | 2018-09-11 16:06 | Cardiology Progress Note ---
Date of Service September 10, 2018 Assessment & Plan (1) Hypertensive urgency: bp variable overnight tolerating addition of carvedilol, imdur and hydralazine well enalapril uptitrated will increase hydralazine to 50mg tid will cont to follow but hopeful that bp is improving (2) Chest pain: likely secondary to hypertensive urgency, however, will require ischemic work up to be completed as an outpatient my office will arrange Lexiscan nuclear stress test Subjective Late entry for visit of 09/10/18: Pt seen and examined, states that he feels well. BP improved and chest pain has resolved. Denies sob, palpitations, lightheadedness or dizziness. tele reviewed: sinus rhythm without arrhythmia or significant ectopy. Review of Systems Review of Systems: All systems reviewed & are unremarkable except as noted in HPI & below Physical Exam Physical Exam: General: Awake, alert and oriented x 3. No acute distress. HEENT: Normocephalic, atraumatic. Pupils equal, round and reactive to light and accommodation. Extraocular muscles are intact. Anicteric sclera. Moist mucous membranes. Neck: No JVD. No bruit. Cardiovascular: Regular. Positive S-4. Normal S-1 and S-2. No S-3. No murmurs or rubs. Pulmonary: Clear to auscultation B/L. No rales, rhonchi or wheezing Abdomen: Bowel sounds x 4, soft. No rebound, guarding or tenderness. No organomegaly. Extremities: No clubbing, cyanosis or edema. +2 pedal pulses bilaterally. Skin: Warm and dry. Results & Data Vital Signs (Past 12 Hours) Vital Signs Temp Pulse Pulse Resp BP BP Pulse Ox 09/11/18 15:51 36.3 C L 67 20 116/65 96 09/11/18 15:43 37.0 C 73 19 106/63 123/69 95 09/11/18 13:57 73 123/69 09/11/18 13:12 125/68 09/11/18 12:47 80 106/63 98/60 L 09/11/18 11:25 37.0 C 74 19 133/71 95 09/11/18 10:13 69 179/74 H 96 09/11/18 09:00 80 09/11/18 07:42 37.1 C 55 L 20 172/91 H 97
== END 2018-09-11 16:44 | disposition home or self-care (01) | DRG 305 ==
LOC: ED 14:18 → 2W 14:18

== ENCOUNTER 2018-09-28 11:53 | Inpatient (IN) ==
[2018-09-28] MEDS ORDERED: ASPIRIN 81 MG CHEW PO STA (12:53)
[2018-09-28] MEDS ORDERED: HydrALAZINE HCL 20 MG/ML VIAL IV STA ×3 (12:53→18:35)
[2018-09-28 13:53] LABS: Basophils # (auto) 0.01 K/uL (0-0.2); Basophils % (auto) 0.1 %; Eosinophils # (auto) 0.15 K/uL (0-0.5); Hematocrit (blood only) 39.8 % (42-52); Hemoglobin 13.1 g/dL (14.0-18.0); Immature Granulocytes # (auto) 0.02 K/uL (0.00-0.02); Immature Granulocytes % (auto) 0.3 %; Lymphocytes # (auto) 1.69 K/uL (1.2-3.4); Lymphocytes % (auto) 22.1 %; Mean Corpuscular Hgb Conc 32.9 g/dL (32-36); Mean Corpuscular Volume 84.1 fL (80-100); Mean Platelet Volume 11.2 fL (7.4-10.4); Monocytes % (auto) 7.8 %; Neutrophils # (auto) 5.19 K/uL (1.4-6.5); Neutrophils % (auto) 67.7 %; Platelet Count 157 K/uL (130-400); RDW Coefficient of Variation 14.8 % (11.5-14.5); RDW Standard Deviation 45.6 fL (36.4-46.3); Red Blood Count 4.73 M/uL (4.7-6.1); White Blood Count 7.66 K/uL (4.8-10.8)
[2018-09-28 14:08] LABS: BUN Creatinine Ratio 12.4 (10-20); Blood Urea Nitrogen 16 mg/dl (7-18); Calcium 9.5 mg/dl (8.5-10.1); Carbon Dioxide 30 mmol/L (21-32); Chloride 104 mmol/L (98-107); Creatinine Clr Calc Pharmacy 77.6 ml/min; Est GFR (African American) 66.3; Est GFR (Non-African American) 57.2; Glucose 189 mg/dl (70-99); Potassium 3.8 mmol/L (3.5-5.1); Sodium 140 mmol/L (136-145)
[2018-09-28] MEDS ORDERED: ACETAMINOPHEN 500 MG TAB PO STA (14:10)
[2018-09-28 14:13] LABS: Troponin I < 0.015 ng/ml (0-0.045)
[2018-09-28] MEDS: NITROGLYCERIN 2% OINTMENT 30GM TUBE EXT ONE ×2 (14:44→15:21)
[2018-09-28] MEDS ORDERED: LABETALOL HCL IV 5 MG/ML 20ML IV STA (15:07)
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
[2018-09-28] MEDS ORDERED: GLUCOSE 10 TABS/TUBE PO PRN (17:22)
[2018-09-28] MEDS ORDERED: GLUCAGON FOR INJ 1 MG VIAL SQ PRN (17:22)
[2018-09-28] MEDS ORDERED: CARBOHYDRATES FOR HYPOGLYCEMIA PO PRN (17:22)
[2018-09-28] MEDS ORDERED: GLUCOSE 40% GEL 15 GM TUBE PO PRN (17:22)
[2018-09-28] MEDS ORDERED: DEXTROSE 50% 50 ML SYRINGE IV PRN (17:22)
[2018-09-28] MEDS ORDERED: ACETAMINOPHEN 325 MG TAB PO PRN (18:08)
[2018-09-28] MEDS ORDERED: POLYETHYLENE (MIRALAX) 17 GM PACK PO PRN (18:08)
[2018-09-28] MEDS ORDERED: ONDANSETRON INJ 2 MG/ML 2 ML VIAL IV PRN (18:08)
[2018-09-28] MEDS ORDERED: NAPROXEN 250 MG TAB PO PRN (18:08)
--- NOTE | 2018-09-28 18:29 | XRay Report ---
XR chest 1V portable CLINICAL HISTORY: admission, CP dyspnea COMPARISON STUDY: 09/09/2018 FINDINGS: The bones soft tissues and hemidiaphragms are normal. The cardiomediastinal silhouette is n ormal. The lungs are clear. The pulmonary vasculature is normal. IMPRESSION: Negative chest. The above report was generated using voice recognition software. It may contain grammatical, syntax or spelling errors. Electronically signed by: Etienne Ramirez M.D. 09/28/2018 6:27 PM
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
[2018-09-28] MEDS ORDERED: ACETAMINOPHEN 500 MG TAB PO PRN (19:45)
[2018-09-28] MEDS ORDERED: NITROGLYCERIN 2% OINTMENT 30GM TUBE EXT SCH (20:00)
[2018-09-28] MEDS ORDERED: NITROGLYCERIN 2% OINTMENT 30GM TUBE EXT PRN (20:03)
[2018-09-28] MEDS: ENOXAPARIN INJ 40 MG/0.4 ML SYR SQ SCH (20:29)
[2018-09-28] MEDS: CARVEDILOL 12.5 MG TAB PO SCH (20:30)
[2018-09-28] MEDS: FINASTERIDE 5 MG TAB PO SCH (20:31)
[2018-09-28] MEDS ORDERED: NON-FORMULARY MEDICATION (Lactobacillus Combination No.4 [Probiotic] 3,000 mmu cells) PO SCH (21:00)
[2018-09-28] MEDS: INSULIN ASPART 100 UNITS/ML 3 ML PEN SC SCH (21:10)
[2018-09-29] MEDS: CHECK CLONIDINE PATCH PLACEMENT SCH ×4 (00:12→23:48)
[2018-09-29 07:15] LABS: Hematocrit (blood only) 36.1 % (42-52); Hemoglobin 11.6 g/dL (14.0-18.0); Mean Corpuscular Hgb Conc 32.1 g/dL (32-36); Mean Platelet Volume 11.3 fL (7.4-10.4); Platelet Count 154 K/uL (130-400); RDW Coefficient of Variation 14.8 % (11.5-14.5); RDW Standard Deviation 45.5 fL (36.4-46.3); White Blood Count 7.57 K/uL (4.8-10.8)
[2018-09-29 07:49] LABS: BUN Creatinine Ratio 13.6 (10-20); Creatinine Clr Calc Pharmacy 79.7 ml/min; Est GFR (African American) 69.6; Est GFR (Non-African American) 60.1; Potassium 3.8 mmol/L (3.5-5.1)
[2018-09-29] MEDS: INSULIN ASPART 100 UNITS/ML 3 ML PEN SC SCH ×4 (08:38→20:21)
[2018-09-29] MEDS: CARVEDILOL 12.5 MG TAB PO SCH ×2 (08:40→20:18)
[2018-09-29] MEDS: PANTOprazole 40 MG TAB PO SCH (08:40)
[2018-09-29] MEDS ORDERED: NON-FORMULARY MEDICATION (Cranberry 400 MG) PO SCH (09:00)
[2018-09-29] MEDS ORDERED: ENALAPRIL MALEATE 10 MG TAB PO SCH (09:00)
[2018-09-29] MEDS ORDERED: ISOSORBIDE MONO EXTENDED REL 30 MG TABCR PO SCH (09:00)
[2018-09-29] MEDS ORDERED: TRIAMTERENE/HCTZ 37.5/25MG TAB PO SCH (09:00)
[2018-09-29] MEDS ORDERED: HydrALAZINE HCL 20 MG/ML VIAL IV STA (17:14)
--- NOTE | 2018-09-29 17:16 | Hospitalist Progress Note ---
Date of Service September 29, 2018 Assessment & Plan (1) Hypertensive urgency: Measured cuff size and appropriate size shown to patient, and nursing staff who have been using this size cuff. On current regimen, BP on my recheck is 169 systolic. Gave hydralazine 10mg IV now and came to 160 systolic. Nephro made several changes to regimen including stopping Maxzide and giving HCTZ 25mg only, and adding spironolactone. Imdur was stopped as it gives the patient terrible headaches and makes him feel poorly, even after lowering the dosage. Secondary workup for Mylene's disease (DST) and pheo is pending. KASSANDRA ruled out last admission. I am concerned that the patient is not using CPAP at home and his untreated VINICIUS may be causing his high pressures. Would try CPAP in the hospital and work with Case Management to help get him a new mask. Discussed dietary intake of sodium and he likely takes in more sodium than he should, but is knowledgeable about hidden sodium that is in foods. (2) Chest pain: Resolved, trop negative, EKG reveals no evidence of ischemia. Telemetry reviewed and no events overnight. Likely 2/2 hypertensiive urgency consistent with last admission when he had an echo and cardiology evaluation. Cont aggressive control of HTN. (3) VINICIUS (obstructive sleep apnea): Uncertain why but patient doesn't have CPAP mask any longer. I feel this is very important, and likely a main reason we are seeing these rising blood pressures. Would have case management take a look at getting him a new mask. (4) Diabetes mellitus, type II: A1C elevated in June 2018, current inpatient BSG controlled with basal/bolus insulin. (5) Obesity: (6) BPH (benign prostatic hyperplasia): Finasteride (7) GERD (gastroesophageal reflux disease): Continue PPI (8) DVT prophylaxis: DVT Ppx: SQ lovenox Code status: FULL PCP: Dr. Hayes ([facility]) Dispo: cont hospitalization pending further testing and stable control of BP DO Allen Disla Hospitalist Subjective Symptoms of headache and malaise with elevated BP yesterday >200. This has resolved. Coreg was increased frmo 6.25 to 12.5mg BID overnight and HR is in the high 50s-low 60s. BP currently 155 systolic. IV hydralazine and labetalol was required overnight. Nephrology consulted and made changes to antihypertensive regimen. Pt states that he took his 's losartan at one point and feels he had a good reading that day--he is asking about this instead of vasotec. Secondary workup pending; KASSANDRA ruled out with Doppler US last admission. Overall, feeling well, no chest pain. Frustrated because of multiple admissions for this issue. Review of Systems Review of Systems: All systems reviewed & are unremarkable except as noted in HPI & below Physical Exam Physical Exam: CONSTITUTIONAL: WNWD, vitals as above, generally well- appearing EYES: normal conjunctivae, no scleral icterus ENT: MMM RESPIRATORY: clear to auscultation bilaterally, no crackles, rales or wheezes, normal respiratory effort CARDIOVASCULAR: regular rate and rhythm, S1 and 2 heard without murmurs, gallops or rubs, no JVD, no peripheral edema GASTROINTESTINAL: normal bowel sounds, soft, nontender, nondistended MUSCULOSKELETAL: strength 5/5 throughout, head is normocephalic and atraumatic SKIN: warm and dry NEUROLOGIC: CN 2-12 grossly intact, no sensory deficit, normal cognition, normal speech, no gross focal deficits. PSYCHIATRIC: alert cooperative and oriented to person, place and time. Euthymic mood, Results & Data Vital Signs (Past 12 Hours) Vital Signs Temp Pulse Resp BP BP Pulse Ox 09/29/18 15:51 36.6 C 59 L 18 156/74 H 95 09/29/18 11:42 36.5 C 58 L 20 159/79 H 96 09/29/18 07:22 36.9 C 61 18 169/69 H 92
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
[2018-09-29] MEDS: FINASTERIDE 5 MG TAB PO SCH (20:17)
[2018-09-29] MEDS: ENOXAPARIN INJ 40 MG/0.4 ML SYR SQ SCH (20:20)
[2018-09-29] MEDS ORDERED: dexAMETHasone 1 MG TAB PO ONE (23:00)
[2018-09-30 07:19] VITALS: TEMP 97.3; O2SAT 95
[2018-09-30] MEDS: CHECK CLONIDINE PATCH PLACEMENT SCH (07:26)
[2018-09-30] MEDS: CARVEDILOL 12.5 MG TAB PO SCH (07:32)
[2018-09-30] MEDS: PANTOprazole 40 MG TAB PO SCH (07:32)
[2018-09-30] MEDS: INSULIN ASPART 100 UNITS/ML 3 ML PEN SC SCH ×2 (08:10→12:17)
[2018-09-30 08:59] VITALS: PULSE 63
[2018-09-30] MEDS ORDERED: SPIRONOLACTONE 25 MG TAB PO SCH (09:00)
[2018-09-30] MEDS ORDERED: ENALAPRIL MALEATE 10 MG TAB PO SCH (09:00)
[2018-09-30] MEDS ORDERED: hydroCHLOROthiazide 25 MG TAB PO SCH (09:00)
[2018-09-30] MEDS ORDERED: cloNIDine HCL 0.3 MG/24 HR TRANSDERM SYS TD SCH (09:00)
[2018-09-30] MEDS ORDERED: LOSARTAN POTASSIUM 50 MG TAB PO SCH (09:00)
--- NOTE | 2018-09-30 09:12 | Hospitalist Progress Note ---
Date of Service September 30, 2018 Assessment & Plan (1) Hypertensive urgency: Presented with blood pressure 217/96, now down to 154/77 Patient has long-standing history of hypertension. Likely essential hypertension with obesity and untreated obstructive sleep apnea both contributing to resistant hypertension. Secondary hypertension work-up was done due to multiple prior admissions for the same- resistant HTN renal duplexno renal artery stenosis. Urine metanephrine, catecholamine 24-hour were ordered but couldnt be done as it has to be collected in acid containing container. Protein/Creatinine ratio collected-pending results. Dexamethosone suppression test was ordered- base - 0.92, 30 min, 1 Hour sample wasnt collected as patient was not fasting. Patient too eager to be discharged, BP stable, most likely etiology- Essential HTN with obesity/Untreated VINICIUS, so okay to discharge today. -Started on Aldactone [address] of triamterene. Continue with HCTZ 25 mg daily. Hydralazine 10 mg TID increased to 75 mg TID. Coreg increased to 12.5 mg twice daily (HR in 60s) . Continue with HCTZ 25 mg daily, Hydralazine 10 mg PO TID. Isosorbide moninitrate 30 mg q HS was discontinued as patient had terrible headaches and made him feel poorly even after lowering dosage. -Appreciate nephrology inputs -Life style modifications discussed -Follow up above tests outpatient (2) Chest pain: Resolved -Trop negative, EKG reveals no evidence of ischemia. Telemetry reviewed and no events -Echo last admission-EF 55 to 60%, grade 1 diastolic dysfunction, mild concentric LVH (3) VINICIUS (obstructive sleep apnea): Not using CPAP -Contributing to resistant hypertension -Explained the importance of using CPAP machine every night but cannot tolerate and not too motivated at all to use it. (4) Diabetes mellitus, type II: A1C elevated in June 2018 -Hold Januvia 100 mg nightly Insulin sliding scale (5) Obesity: -Counselled on importance of weight loss and nutrition for improving BP (6) BPH (benign prostatic hyperplasia): -Continue with Finasteride (7) GERD (gastroesophageal reflux disease): -Continue PPI (8) DVT prophylaxis: DVT Ppx: SQ lovenox Code status: FULL PCP: Dr. Hayes ([place]) Dispo: Eager to be discharged home. Okay to discharge home today Subjective Patient denies any complaints at this point. Eager to be discharged. Denies any headaches, blurry vision, chest pain, shortness of breath, cough, fever, chills. Denies any worsening of leg swelling Blood pressure 154/72 Physical Exam Physical Exam: GENERAL- AAOX3, No acute distress, OBESE LUNGS- Air entry bilaterally equal. No rales, rhonchi, crackles, wheezes heard. HEART- Regular rate and rhythm. No murmurs ABDOMEN- Soft, non tender, non distended, Bowel sounds heard. Unable to appreciate bruits EXTREMITIES- Mild edema NEUROMUSCULAR- AAOX3, Grossly no focal deficits Results & Data Vital Signs (Past 12 Hours) Vital Signs Temp Pulse Resp BP BP Pulse Ox 09/30/18 08:58 63 154/72 H 09/30/18 08:29 64 162/80 H 09/30/18 07:17 36.3 C L 72 20 179/83 H 95 09/30/18 04:13 37.0 C 62 18 142/62 H 92 09/29/18 22:51 36.5 C 64 18 153/65 H 93
[2018-09-30 09:34] LABS: Hematocrit (blood only) 38.5 % (42-52); Hemoglobin 12.6 g/dL (14.0-18.0); Mean Corpuscular Hgb Conc 32.7 g/dL (32-36); Mean Corpuscular Volume 84.1 fL (80-100); Mean Platelet Volume 11.5 fL (7.4-10.4); Platelet Count 175 K/uL (130-400); RDW Coefficient of Variation 14.8 % (11.5-14.5); RDW Standard Deviation 45.5 fL (36.4-46.3); Red Blood Count 4.58 M/uL (4.7-6.1); White Blood Count 7.69 K/uL (4.8-10.8)
[2018-09-30 10:06] LABS: Calcium 9.1 mg/dl (8.5-10.1); Creatinine Clr Calc Pharmacy 70.1 ml/min; Est GFR (African American) 59.8; Est GFR (Non-African American) 51.6; Potassium 4.2 mmol/L (3.5-5.1)
[2018-09-30 11:44] VITALS: BP 142/62
[2018-09-30 11:58] LABS: Urine Creatinine 66.7 mg/dl
[2018-09-30 12:24] LABS: Creatinine Urine Random 75.3 mg/dl; Total Protein Urine Random < 5.0 mg/dl (0-11.9)
--- NOTE | 2018-09-30 12:36 | Discharge Summary ---
Date of Service September 30, 2018 Admission HPI Per Admitting Provider This is a 73yo M with a PMH of HTN, DM II, BPH, VINICIUS, history of rheumatic fever who presents with elevated BP and chest pain. Patient states that he has been taking all medications regularly but experiences tinnitus when his pressure is high. Also developed some chest pressure and headache this morning after taking medications. BP elevated at 217/96 initially, now 170/75 after IV antihypertensives and transition to larger BP cuff. Still endorsing headache and tinnitus. Chest pressure has resolved since arrival. Denies lightheadedness, visual changes, chest pain, palpitations, shortness of breath, nausea or vo miting. No urinary changes. Patient has history of uncontrolled blood pressure and was recently admitted from September 09- with similar presentation. During admission, was started on hydralazine 75mg TID, carvedilol 6.25 BID and Imdur 60 mg. Enalapril was increased to 40mg daily. Clonidine 0.3 mg patch and Maxzide 37.5-25mg was continued. Metoprolol was discontinued. Terazosin was trialed but patient experienced a symptomatic hypotensive episode and medication was discontinued. TTE revealed normal LV chamber size with mild concentric LVH, a normal LV systolic function with an EF of 55 to 60%, no wall motion abnormalities and grade 1 diastolic dysfunction. Valvular structures were poorly visualized. Underwent workup for secondary hypertension as well with renal ultrasound without renal stenosis, carotid doppler without hemodynamically significant carotid stenosis and an abdominal arterial ultrasound that had no evidence of abdominal aortic aneurysm. Patient has been experiencing headache after taking Imdur, so PCP has since decreased Imdur dose to 30 mg daily. Principal Diagnosis 1. Hypertensive urgency Secondary diagnoses on discharge 1. Obstructive sleep apnea, nontolerant to CPAP 2. Obesity 3. Diabetes mellitus type 2 4. BPH 5. GERD Discharge Exam GENERAL- AAOX3, No acute distress, OBESE LUNGS- Air entry bilaterally equal. No rales, rhonchi, crackles, wheezes heard. HEART- Regular rate and rhythm. No murmurs ABDOMEN- Soft, non tender, non distended, Bowel sounds heard. Unable to appreciate bruits EXTREMITIES- Mild edema NEUROMUSCULAR- AAOX3, Grossly no focal deficits Discharge Data Allergies Allergy/AdvReac Type Severity Reaction Status Date / Time Cipro AdvReac Intermediate cramping/na Verified 07/10/17 09:05 usea ciprofloxacin AdvReac Intermediate cramping/na Verified 09/28/18 13:00 usea Consultations 09/28/18 15:23 ED Decision to Admit Stat 09/29/18 09:47 Consult Nephrology Routine Hospital Course (1) Hypertensive urgency: Presented with blood pressure 217/96, now down to 154/77 Patient has long-standing history of hypertension. Likely essential hypertension with obesity and untreated obstructive sleep apnea both contributing to resistant hypertension. Secondary hypertension work-up was done due to multiple prior admissions for the same- resistant HTN renal duplexno renal artery stenosis. Urine metanephrine, catecholamine 24-hour were ordered but couldnt be done as it has to be collected in acid containing container. . Dexamethosone suppression test was ordered- base - 0.92, 30 min, 1 Hour sample wasnt collected as patient was not fasting. Urine random creatinine 75.3, Total protein < 5.0. Patient too eager to be discharged, BP stable, most likely etiology- Essential HTN with obesity/Untreated VINICIUS, so okay to discharge today. -Started on Aldactone [address] of triamterene. Coreg increased to 12.5 mg twice daily (HR in 60s) . Continue with HCTZ 25 mg daily. Hydralazine 75 mg PO TID, Enalapril 40 mg daily, Clonidine Patch. Isosorbide moninitrate 30 mg q HS was discontinued as patient had terrible headaches and made him feel poorly even after lowering dosage. -Appreciate nephrology inputs -Life style modifications discussed -Follow up above tests outpatient (2) Chest pain: Resolved -Trop negative, EKG reveals no evidence of ischemia. Telemetry reviewed and no events -Echo last admission-EF 55 to 60%, grade 1 diastolic dysfunction, mild concentric LVH (3) VINICIUS (obstructive sleep apnea): Not using CPAP -Contributing to resistant hypertension -Explained the importance of using CPAP machine every night but cannot tolerate and not too motivated at all to use it. (4) Diabetes mellitus, type II: A1C elevated in June 2018 -Hold Januvia 100 mg nightly Insulin sliding scale (5) Obesity: -Counselled on importance of weight loss and nutrition for improving BP (6) BPH (benign prostatic hyperplasia): -Continue with Finasteride (7) GERD (gastroesophageal reflux disease): -Continue PPI (8) DVT prophylaxis: DVT Ppx: SQ lovenox Code status: FULL PCP: Dr. Hayes ([place]) Dispo: Eager to be discharged home. Okay to discharge home today Total Time Total Time Spent Total Time Spent (In Minutes): 35 minutes Discharge Plan Discharge Items Patient Disposition: Home - Self-Care Reason For Visit: HTNIVE URGENCY Discharge Diagnosis: Hypertensive urgency Discharge Goals: Improve disease control Activity: Resume your previous activity Non-emergency contact: Primary Care Provider Call non-emergency contact if: your symptoms worsen Follow-up/Referrals: Roe Hayes M.D. [Primary Care Provider] - Diet: Carb Consistent or DM2 and Heart Healthy Addtl Provider Instructions: MEDICATION CHANGES 1 Discontinue triamterene hydrochlorothiazide 2. continue with hydrochlorothiazide 25 mg daily 3. New medicationAldactone 25 mg daily instead of triamterene 4. Discontinued isosorbide mononitrate due to headaches 5. Increased Coreg to 12.5 mg twice daily from 6.25 mg PO BID Recommendations : Use CPAP every night Recommend weight loss Exercise MONITOR 1. BP with changes made in medications 2. If continues to have high BP, may consider secondary HTN work up which couldnt be completed inpatient Prescriptions: New spironolactone 25 mg Tablet 25 mg PO QAM 30 Days Qty: 30 RF: 0 hydrochlorothiazide 25 mg tablet 25 mg PO DAILY Qty: 30 RF: 0 Continued glyburide 5 mg tablet 10 mg PO BID RF: 0 acetaminophen [Tylenol Arthritis Pain] 650 mg Tablet Extended Release 1 - 2 tab PO Q12H PRN (Reason: Pain) RF: 0 pantoprazole [Protonix] 40 mg tablet,delayed release (DR/EC) 40 mg PO QAM RF: 0 naproxen sodium [Aleve] 220 mg Tablet 220 mg PO PM PRN (Reason: Pain) RF: 0 cranberry 400 mg Capsule 400 mg PO QAM RF: 0 finasteride [Proscar] 5 mg tablet 5 mg PO HS RF: 0 Januvia 100 mg tablet 100 mg PO HS RF: 0 clonidine 0.3 mg/24 hr patch weekly 1 patch topical WK RF: 0 Probiotic 3 billion cell Capsule 3,000 mmu cells PO HS RF: 0 enalapril maleate 10 mg Tablet 40 mg PO QAM Qty: 30 RF: 1 hydralazine 25 mg Tablet 75 mg PO TID Qty: 180 RF: 1 Changed carvedilol 6.25 mg Tablet 12.5 mg PO BID Qty: 60 RF: 1 Discontinued triamterene-hydrochlorothiazid [Maxzide-25mg] 37.5-25 mg tablet 1 tab PO QAM RF: 0 isosorbide mononitrate 30 mg tablet extended release 24 hr 30 mg PO HS RF: 0 Stand-Alone Forms: [facility] Discharge Orders: Discharge Order (Routine); Ordered 09/30/18 Ordered By: Traci Cody Admission Data Admit Date/Time: 09/29/18 09:42 Attending Provider: Traci Cody Admit Provider: Maryann Damon Primary Care Provider: Roe Hayes Other Providers: Maryann Damon ; Sury Esquivel ; Cheryl Davis Service: Medical
[2018-10-03 13:57] LABS: Metanephrine, Plasma 41 pg/mL (<=57); Normetanephrine Plasma 120 pg/mL (<=148); Total Metanephrine Plasma 161 pg/mL (<=205)
[2018-10-05 15:29] LABS: Creatinine 24 Hr Urine 1.82 g/24 h (0.50-2.15)
== END 2018-09-30 13:31 | disposition home or self-care (01) | DRG 305 ==
LOC: 2W 11:53 → ED 11:53 → 2W 17:05 → SUATTDRO 09-29 09:42

== ENCOUNTER 2018-10-15 23:19 | Observation (INO) ==
[2018-10-15] MEDS ORDERED: NITROGLYCERIN SL 0.4 MG/TAB TAB SL PRN (23:34)
[2018-10-15] MEDS ORDERED: FAMOTIDINE 20 MG TAB PO ONE (23:36)
[2018-10-15] MEDS ORDERED: SUCRALFATE 1 GM TAB PO STA (23:36)
[2018-10-15] MEDS ORDERED: ASPIRIN CHEW 324 MG PO STA (23:36)
[2018-10-15] MEDS ORDERED: ACETAMINOPHEN 500 MG TAB PO STA (23:36)
[2018-10-15] MEDS ORDERED: GI COCKTAIL ED USE PO ONE (23:36)
[2018-10-15 23:46] LABS: Basophils # (auto) 0.01 K/uL (0-0.2); Basophils % (auto) 0.1 %; Eosinophils # (auto) 0.14 K/uL (0-0.5); Eosinophils % (auto) 1.9 %; Hematocrit (blood only) 38.4 % (42-52); Hemoglobin 12.6 g/dL (14.0-18.0); Immature Granulocytes # (auto) 0.02 K/uL (0.00-0.02); Immature Granulocytes % (auto) 0.3 %; Lymphocytes # (auto) 2.02 K/uL (1.2-3.4); Lymphocytes % (auto) 27.4 %; Mean Corpuscular Hgb Conc 32.8 g/dL (32-36); Mean Corpuscular Volume 83.5 fL (80-100); Mean Platelet Volume 10.3 fL (7.4-10.4); Monocytes # (auto) 0.67 K/uL (0.11-0.59); Monocytes % (auto) 9.1 %; Neutrophils # (auto) 4.52 K/uL (1.4-6.5); Neutrophils % (auto) 61.2 %; Platelet Count 141 K/uL (130-400); RDW Coefficient of Variation 15.3 % (11.5-14.5); RDW Standard Deviation 46.5 fL (36.4-46.3); White Blood Count 7.38 K/uL (4.8-10.8)
[2018-10-15] MEDS ORDERED: MoRPHine SULFATE 10 MG/ML CARP/VIAL IV STA (23:53)
[2018-10-15] MEDS ORDERED: ONDANSETRON INJ 2 MG/ML 2 ML VIAL IV STA (23:53)
[2018-10-15 23:57] LABS: iSTAT Creatinine 1.5 mg/dl (0.6-1.3); iSTAT Hemoglobin 12.6 g/dl (14.0-18.0); iSTAT Ionized Calcium 1.2 mmol/l (1.12-1.32)
[2018-10-16 00:03] LABS: Alanine Aminotransferase 28 U/L (12-78); Albumin Level 3.7 gm/dl (3.4-5.0); Aspartate Aminotransferase 14 U/L (15-37); BUN Creatinine Ratio 16.5 (10-20); Blood Urea Nitrogen 23 mg/dl (7-18); Calcium 9.2 mg/dl (8.5-10.1); Carbon Dioxide 32 mmol/L (21-32); Chloride 102 mmol/L (98-107); Creatinine Clr Calc Pharmacy 70.1 ml/min; Est GFR (African American) 59.3; Est GFR (Non-African American) 51.2; Glucose 175 mg/dl (70-99); Potassium 3.9 mmol/L (3.5-5.1); Sodium 139 mmol/L (136-145)
[2018-10-16 00:08] LABS: Alkaline Phosphatase 80 U/L (45-117); Bilirubin,Total 0.3 mg/dl (0.2-1); Creatine Kinase 191 U/L (39-308); Creatine Kinase MB 1.3 ng/ml (0.5-3.6); Globulin 3.7 gm/dl (2.5-4.0); Total Protein 7.4 gm/dl (6.4-8.2); Troponin I < 0.015 ng/ml (0-0.045)
[2018-10-16] MEDS ORDERED: OPTIRAY 320 125ml IV PRN (00:21)
--- NOTE | 2018-10-16 02:15 | History and Physical Report ---
DATE OF ADMISSION: 10/15/2018 CHIEF COMPLAINT: Chest pain. HISTORY OF PRESENT ILLNESS: This is a 73-year-old male with past medical history significant for hypertension, type 2 diabetes, benign prostatic hypertrophy, obstructive sleep apnea, history of rheumatic fever and gastroesophageal reflux disease who presents with chest pain. The patient was recently in hospital for chest pain and hypertensive urgency and was discharged on 09/30/2018. The patient had outpatient nuclear stress test which was positive for possible blocked artery and there is plan for cardiac catheterization on 10/20/2018. The patient comes with chest pain started in the morning on the left side of his chest, radiating to his back, but later in the evening, it got progressively worse. He initially thought it was indigestion, but it is not getting better so he came to the Emergency Room. Nitro did not relieve the pain, but gave him some headaches, but Morphine relieved his pain, currently he is completely pain free. Denies any dizziness. No sweating. No nausea. No shortness of breath. No cough. No fever. No chills. He has some mild headache. No blurred vision. No earache. No runny nose. No sore throat. No difficulty swallowing. Appetite is okay. No abdominal pain. Normal bowel and bladder movements. No swelling in the legs. No rash. Ambulating okay. The patient states he is still noncompliant with continuous positive airway pressure. He recently got a continuous positive airway pressure machine with nasal cannula and he seems to be tolerating okay, but he only had used it for the last 2 days but the canula does not stay in the place.. Currently, resting comfortably and hemodynamically stable. Blood pressure was elevated, but is coming down. ALLERGIES: CIPRO. PAST MEDICAL HISTORY: As mentioned above. PAST SURGICAL HISTORY: No surgical history in file. MEDICATIONS: Currently, the patient is on Tylenol p.r.n., Coreg 12.5 mg p.o. b.i.d., clonidine patch 0.3 mg weekly, spironolactone 25 mg q.a.m., hydrochlorothiazide 25 mg p.o. daily,glyburide 10 mg p.o. b.i.d., Protonix 40 mg p.o. daily, naproxen 220 mg p.r.n., cranberry 400 mg p.o. a.m., Proscar 5 mg p.o. at bedtime, Januvia 100 mg p.o. at bedtime, probiotic capsule daily, enalapril 40 mg daily and hydralazine 75 mg p.o. t.i.d. FAMILY HISTORY: Significant for the patient was adopted. SOCIAL HISTORY: . No smoking. No alcohol. No drug use. REVIEW OF SYMPTOMS: As per HPI. Rest of review of symptoms negative. PHYSICAL EXAMINATION: GENERAL: The patient is alert and awake, not in acute distress, morbidly obese. VITAL SIGNS: Temperature 36.8, pulse 59, respiratory rate 17, blood pressure 177/93 and oxygen 96% room air. HEENT: No pallor. No icterus. Pupils are equal, round and reactive to light. NECK: No JVD. No neck masses. No carotid bruits. CARDIOVASCULAR: S1, S2 heard. Regular rate and rhythm. No murmur. No gallop. RESPIRATORY SYSTEM: Normal AP diameter. No accessory muscle use. No wheezing. No crackles. ABDOMEN: Soft. Bowel sounds present. Nontender. No distention. CENTRAL NERVOUS SYSTEM: Cranial nerves II through XII grossly intact. Nonfocal. EXTREMITIES: No edema. No erythema. LABORATORY DATA: WBC 7.3, hemoglobin 12.6, hematocrit 38.4 and platelets 141. Sodium 139, potassium 3.9, chloride 102, bicarbonate 32, BUN 26, creatinine 1.3, serum glucose 125, calcium 9.2, total bilirubin 0.3, AST 14, ALT 28 and alkaline phosphatase 80. Total creatine kinase 191. Troponin I less than 0.015. Lipase 162. Electrocardiogram, sinus rhythm with sinus arrhythmia with first-degree AV block at a rate of [address] changes seen. CTA of the chest, official reading is pending. ASSESSMENT AND PLAN: This is a 73-year-old male who presents with chest pain. 1. Chest pain, rule out acute coronary syndrome. Recently, he had a nuclear stress test which was positive with questionable blockages and planned for cardiac catheterization on 10/20/2018. Electrocardiogram is unremarkable. Troponin negative. Will observe in the tele floor. Serial cardiac enzymes, We will keep him n.p.o. Consult cardiology in a.m. for further recommendations. 2. Hypertension, uncontrolled. Continue his home medications of Coreg, clonidine patch, enalapril, hydralazine, hydrochlorothiazide and spironolactone. noncompliant with continuous positive airway pressure mostly contributing for resistant hypertension. Will add nitropaste and monitor. 3. Diabetes, currently n.p.o. We will hold glyburide, place him on insulin sliding scale. 4. Gastroesophageal reflux disease, continue proton pump inhibitor. 5. Morbid obesity, needs counseling. 6. Benign prostatic hypertrophy, on Proscar. 7. Obstructive sleep apnea, not using continuous positive airway pressure. Needs counselling. Hopefully new cpap machine with nasal canula will work.refusing to use in the hospital. Will try to use cpap with nasal canula in the hospital. 8. Deep venous thrombosis prophylaxis, sequential compression devices. 9. Disposition: Observation in tele floor. discharge home and follow with family doctor. Level 1 full code. MTDD
[2018-10-16] MEDS ORDERED: NITROGLYCERIN SL 0.4 MG/TAB TAB SL PRN (02:18)
[2018-10-16] MEDS ORDERED: ACETAMINOPHEN 325 MG TAB PO PRN (02:18)
[2018-10-16] MEDS ORDERED: ACETAMINOPHEN PO PRN (02:18)
[2018-10-16] MEDS ORDERED: ONDANSETRON INJ 2 MG/ML 2 ML VIAL IV PRN (02:18)
[2018-10-16] MEDS ORDERED: MoRPHine SULFATE 2 MG/ML CARP IV PRN (02:18)
[2018-10-16] MEDS: NITROGLYCERIN 2% OINTMENT 30GM TUBE EXT SCH ×3 (03:01→15:20)
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
--- NOTE | 2018-10-16 06:58 | CT Scan Report ---
CT ANGIOGRAPHY OF THE CHEST DISSECTION PROTOCOL CLINICAL HISTORY: Chest pain. Evaluate for dissection. COMPARISON STUDY: Chest CT August 18, 2011. Chest radiograph September 28, 2018. TECHNIQUE: Before and following the IV administration of 118 mL of Optiray-320, helical axial images of the chest were obtained. Maximal intensity projections and sagittal and coronal reformats were vi ewed on an independent 3D workstation. IV contrast was administered without complication. Automated exposure control was utilized for the study. A dose lowering technique was utilized adhering to the principles of ALARA. CT DOSE: 2078.28 mGy.cm FINDINGS: Caliber of the thoracic aorta is normal. There is no thoracic aortic dissection or intramu ral hematoma. The heart is mildly enlarged. There is no pericardial effusion. No enlarged thoracic ly mph nodes are present. There are tiny cysts within the lungs. There is no consolidation to suggest pn eumonia. Central airways are patent. No pneumothorax or pleural effusion is noted. Several calcified granulomas within the lungs are noted. A 2.4 cm hypodense splenic lesion contains a few calcification s. This was present on earlier exams. This is benign. No central pulmonary embolus is present. IMPRESSION: 1. No thoracic aortic dissection. 2. No acute intrathoracic findings. 3. Mild cardiomegaly. Electronically signed by: Ernesto Ayala M.D. 10/16/2018 6:57 AM
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
[2018-10-16] MEDS: CHECK CLONIDINE PATCH PLACEMENT SCH ×2 (08:53→17:18)
[2018-10-16] MEDS: INSULIN ASPART 100 UNITS/ML 3 ML PEN SC SCH ×3 (08:56→17:18)
[2018-10-16] MEDS ORDERED: ENALAPRIL MALEATE 10 MG TAB PO SCH (09:00)
[2018-10-16] MEDS ORDERED: PANTOprazole 40 MG TAB PO SCH (09:00)
[2018-10-16] MEDS ORDERED: NON-FORMULARY MEDICATION (Cranberry 400 MG) PO SCH (09:00)
[2018-10-16] MEDS ORDERED: CARVEDILOL 6.25 MG TAB PO SCH (09:00)
[2018-10-16] MEDS ORDERED: hydroCHLOROthiazide 25 MG TAB PO SCH (09:00)
[2018-10-16] MEDS ORDERED: SPIRONOLACTONE 25 MG TAB PO SCH (09:00)
[2018-10-16] MEDS ORDERED: NiCARDipine HCL INJ 2.5 MG/ML 10 ML AMP ONE (09:06)
[2018-10-16] MEDS ORDERED: HEPARIN (PORCINE) 1000 UNIT/ML 10 ML (CATH LAB USE ONLY) ONE (09:06)
[2018-10-16] MEDS ORDERED: MIDAZOLAM HCL 1 MG/ML 2ML VIAL ONE (09:06)
[2018-10-16] MEDS ORDERED: NITROGLYCERIN/D5W 100MCG/ML 20ML SYR ONE (09:13)
[2018-10-16] MEDS: SODIUM CHLORIDE 0.9% 1000ML 1,000 ML IV SCH ×2 (09:58→17:42)
--- NOTE | 2018-10-16 10:01 | Cardiac Catheterization ---
Date of Service October 16, 2018 Cardiac Cath Report Cardiac Cath Report Procedure: 1. Coronary angiography History: This is a 73-year-old obese, diabetic, hypertensive, sleep apnea male who presented several weeks ago with hypertensive urgency. After discharge she underwent a pharmacologic nuclear stress test that was interpreted as having an inferior wall infarct with kareen-infarct ischemia. He was scheduled for an elective heart catheterization next week but had additional chest pain and presented for admission. Procedure summary: After informed consent was obtained the patient was taken to the cardiac catheterization lab where access was obtained using a retrograde cylinder technique from the right radial artery. Preformed 5 [place] diagnostic catheters were utilized for the coronary angiograms. An attempt was made to cross the aortic valve with a pigtail catheter but because of the far left takeoff of the right subclavian the valve could not be crossed. Following the procedure the patient was returned to the holding area the [facility] in stable condition. ACC data: Start time 9:18 AM End time 9:37 AM Opening aortic pressure 135/73 Closing aortic pressure 159/76 LV pressurevalve not crossed Sedation 2 mg intravenous Versed IV fluid 30 cc normal saline Contrast 89 cc Optiray Fluoroscopy time 7 minutes and 20 seconds Radiation 2426 mGy DAP 15,323 mGy/m Right dominant system AUC score 9 Coronary angiography: Selective injections of the right coronary artery revealed to be dominant. There are luminal irregularities with the right coronary artery being widely patent. Selective injections of the left coronary artery revealed a left main trunk to be widely patent. There is a medium to large size ramus branch from the proximal circumflex which is widely patent. The left circumflex consist principally of a large lateral marginal branch. The left circumflex artery is widely patent. The LAD wraps around the apex of the heart. The LAD has minor luminal irregularities but is widely patent. The LAD gives off a large first diagonal which is widely patent. Summary: The patient has widely patent coronary anatomy. Recommendations: Continued risk factor modification for coronary artery disease including control of hypertension and diabetes.
[2018-10-16 15:25] VITALS: O2SAT 95
--- NOTE | 2018-10-16 15:37 | Hospitalist Progress Note ---
Date of Service October 16, 2018 Results & Data Vital Signs (Past 12 Hours) Vital Signs Temp Pulse Pulse Resp BP Pulse Ox 10/16/18 14:27 36.7 C 50 L 16 134/78 95 10/16/18 13:27 36.7 C 52 L 18 144/86 H 94 10/16/18 12:27 36.7 C 56 L 18 133/74 96 10/16/18 11:27 36.7 C 54 L 16 142/74 H 99 10/16/18 10:27 36.4 C L 55 L 20 135/69 97 10/16/18 10:12 36.7 C 61 20 130/66 93 10/16/18 09:57 36.6 C 69 12 161/76 H 92 10/16/18 09:42 36.6 C 67 14 172/82 H 92 10/16/18 07:59 36.7 C 59 L 18 169/82 H 94 10/16/18 07:57 57 L 10/16/18 04:27 36.7 C 62 17 145/93 H 96 Laboratory Results Short CBC 10/15/18 Range/Units 23:37 WBC 7.38 (4.8-10.8) K/uL Hgb 12.6 L (14.0-18.0) g/dL Hct 38.4 L (42-52) % Plt Count 141 (130-400) K/uL BMP 10/15/18 23:37 Sodium 139 Potassium 3.9 Chloride 102 Carbon Dioxide 32 BUN 23 H Creatinine 1.37 Glucose 175 H Calcium 9.2 Cardiac Enzymes 10/15/18 10/16/18 10/16/18 Range/Units 23:37 05:56 10:49 Total Creatine Kinase 191 (39-308) U/L CK-MB (CK-2) 1.3 (0.5-3.6) ng/ml Troponin I < 0.015 < 0.015 < 0.015 (0-0.045) ng/ml Liver Function 10/15/18 Range/Units 23:37 Total Bilirubin 0.3 (0.2-1) mg/dl AST 14 L (15-37) U/L ALT 28 (12-78) U/L Alkaline Phosphatase 80 (45-117) U/L Albumin 3.7 (3.4-5.0) gm/dl Medications Administered Current Inpatient Medications Acetaminophen (Tylenol) 650 mg PO Q4H PRN PRN Reason: Pain or Fever Stop: 11/15/18 02:17 Carvedilol (Coreg) 12.5 mg PO BID [facility] Stop: 11/15/18 08:59 Last Admin: 10/16/18 08:55 Dose: 12.5 mg Documented by: Clonidine HCl ([id number] 0.3mg/24hr) 1 patch TD We@0900 [facility] Stop: 11/20/18 08:59 Enalapril Maleate (Vasotec) 40 mg PO QAM [facility] Stop: 11/15/18 08:59 Last Admin: 10/16/18 08:49 Dose: 40 mg Documented by: Finasteride (Proscar) 5 mg PO HS [facility] Stop: 11/15/18 20:59 Hydralazine HCl (Apresoline) 75 mg PO TID [facility] Stop: 11/15/18 08:59 Last Admin: 10/16/18 14:04 Dose: 75 mg Documented by: Hydrochlorothiazide (Hctz) 25 mg PO DAILY [facility] Stop: 11/15/18 08:59 Last Admin: 10/16/18 08:54 Dose: 25 mg Documented by: Sodium Chloride (Nss 1000ml) 1,000 mls @ 137 mls/hr IV .Q7H18M [facility] Stop: 11/15/18 08:44 Last Admin: 10/16/18 09:58 Dose: 137 mls/hr Documented by: Insulin Aspart (Novolog Flexpen) 0 units SC ACHS [facility] Stop: 11/15/18 07:29 Last Admin: 10/16/18 11:50 Dose: 4 units Documented by: Lactobacillus Acidophilus (Floranex) 4 tab PO HS [facility] Stop: 11/15/18 20:59 Miscellaneous (Check Clonidine Patch) 1 ea N/A QS [facility] Stop: 11/15/18 07:59 Last Admin: 10/16/18 08:53 Dose: 1 ea Documented by: Miscellaneous (Remove Clonidine Patch) 1 ea N/A We@0859 [facility] Stop: 11/20/18 08:58 Morphine Sulfate (Morphine Sulfate) 2 mg IV Q30M PRN PRN Reason: Chest Pain Stop: 10/30/18 02:17 Nitroglycerin (Nitrostat) 0.4 mg SL UD PRN PRN Reason: Chest Pain Stop: 11/15/18 02:17 Nitroglycerin (Nitro-Bid 2%) 1 inch EXT Q6H RAS Stop: 11/15/18 02:59 Last Admin: 10/16/18 15:20 Dose: 1 inch Documented by: Ondansetron HCl (Zofran) 4 mg IV Q6H PRN PRN Reason: Nausea Stop: 11/15/18 02:17 Pantoprazole Sodium (Protonix) 40 mg PO [facility] Stop: 11/15/18 08:59 Last Admin: 10/16/18 08:53 Dose: 40 mg Documented by: Spironolactone (Aldactone) 25 mg PO [facility] Stop: 11/15/18 08:59 Last Admin: 10/16/18 08:51 Dose: 25 mg Documented by:
[2018-10-16 15:42] VITALS: BP 129/64; TEMP 97.9
--- NOTE | 2018-10-16 17:08 | Discharge Summary ---
Date of Service October 16, 2018 Admission HPI Per Admitting Provider HISTORY OF PRESENT ILLNESS: This is a 73-year-old male with past medical history significant for hypertension, type 2 diabetes, benign prostatic hypertrophy, obstructive sleep apnea, history of rheumatic fever and gastroesophageal reflux disease who presents with chest pain. The patient was recently in hospital for chest pain and hypertensive urgency and was discharged on 09/30/2018. The patient had outpatient nuclear stress test which was positive for possible blocked artery and there is plan for cardiac catheterization on 10/20/2018. The patient comes with chest pain started in the morning on the left side of his chest, radiating to his back, but later in the evening, it got progressively worse. He initially thought it was indigestion, but it is not getting better so he came to the Emergency Room. Nitro did not relieve the pain, but gave him some headaches, but Morphine relieved his pain, currently he is completely pain free. Denies any dizziness. No sweating. No nausea. No shortness of breath. No cough. No fever. No chills. He has some mild headache. No blurred vision. No earache. No runny nose. No sore throat. No difficulty swallowing. Appetite is okay. No abdominal pain. Normal bowel and bladder movements. No swelling in the legs. No rash. Ambulating okay. The patient states he is still noncompliant with continuous positive airway pressure. He recently got a continuous positive airway pressure machine with nasal cannula and he seems to be tolerating okay, but he only had used it for the last 2 days but the canula does not stay in the place.. Currently, resting comfortably and hemodynamically stable. Blood pressure was elevated, but is coming down. Admission Exam Per Admitting Provider ALLERGIES: CIPRO. PAST MEDICAL HISTORY: As mentioned above. PAST SURGICAL HISTORY: No surgical history in file. MEDICATIONS: Currently, the patient is on Tylenol p.r.n., Coreg 12.5 mg p.o. b.i.d., clonidine patch 0.3 mg weekly, spironolactone 25 mg q.a.m., hydrochlorothiazide 25 mg p.o. daily,glyburide 10 mg p.o. b.i.d., Protonix 40 mg p.o. daily, naproxen 220 mg p.r.n., cranberry 400 mg p.o. a.m., Proscar 5 mg p.o. at bedtime, Januvia 100 mg p.o. at bedtime, probiotic capsule daily, enalapril 40 mg daily and hydralazine 75 mg p.o. t.i.d. PHYSICAL EXAMINATION: GENERAL: The patient is alert and awake, not in acute distress, morbidly obese. VITAL SIGNS: Temperature 36.8, pulse 59, respiratory rate 17, blood pressure 177/93 and oxygen 96% room air. HEENT: No pallor. No icterus. Pupils are equal, round and reactive to light. NECK: No JVD. No neck masses. No carotid bruits. CARDIOVASCULAR: S1, S2 heard. Regular rate and rhythm. No murmur. No gallop. RESPIRATORY SYSTEM: Normal AP diameter. No accessory muscle use. No wheezing. No crackles. ABDOMEN: Soft. Bowel sounds present. Nontender. No distention. CENTRAL NERVOUS SYSTEM: Cranial nerves II through XII grossly intact. Nonfocal. EXTREMITIES: No edema. No erythema. Principal Diagnosis Chest pain Hypertensive urgency VINICIUS with intolerance of CPAP Discharge Data Allergies Allergy/AdvReac Type Severity Reaction Status Date / Time Cipro AdvReac Intermediate cramping/na Verified 07/10/17 09:05 usea ciprofloxacin AdvReac Intermediate cramping/na Verified 10/15/18 23:54 usea Consultations 10/16/18 00:40 ED Decision to Admit Stat 10/16/18 02:18 Consult Case Management - Discharge Planning Routine 10/16/18 08:00 Consult Cardiology Routine Procedures Performed Operation Date: 10/16/18 08:40 Actual Procedures s Cineradiography w/Routine Exam - Ron Smith DO p Cath, Coronaries ONLY (no LV) - Ron Smith DO Ordered Studies 10/15/18 23:34 CT angio chest dissec wo/w con Urgent 10/16/18 08:39 CL Cath Imgs for PACS use only Urgent Hospital Course (1) Chest pain: (2) Hypertensive urgency: (3) VINCIIUS (obstructive sleep apnea): (4) Obesity: 73-year-old man with obstructive sleep apnea and intolerance of CPAP presented several days ago to the hospital with hypertensive urgency and chest pain. His cardiac markers were negative, blood pressure medications were adjusted and he was discharged. He underwent an outpatient pharmacologic nuclear stress test which showed evidence of possible inferior wall infarct with kareen-infarct ischemia. He was scheduled for an outpatient cardiac catheterization next week but had additional chest pain and came to the ER where he was admitted to the Hospitalist service. His cardiac markers were again negative and blood pressure and chest pain improved overnight with morphine 10 mg IV and Nitropaste. Cardiology was consulted and recommended cardiac catheterization which was performed the following morning. This revealed normal coronary arteries and no further intervention was needed. No additional changes were made to blood pressure medications. Of note, the patient reports he s tarted using essential oils which are helping with his stress and improving his blood pressure numbers. He is still reporting intolerance of CPAP, but is using a nasal CPAP at home. He has a follow-up appointment with Cardiology. At time of discharge a [id number] examination was formed revealing a hemodynamically stable and afebrile patient who is tolerating p.o. and mentating and ambulating at baseline his radial artery site was doing well post cath, and he was asymptomatic from a chest pain standpoint. Blood pressure was significantly improved since admission. He was discharged in stable condition with close primary care follow-up recommended. Total Time Total Time Spent Total Time Spent (In Minutes): 60 Total Time Includes: Examination of the Patient, Discharge Planning, Medication Reconciliation and Communication With Other Providers Discharge Plan Discharge Items Patient Disposition: Home - Self-Care Reason For Visit: CHEST PAIN Discharge Diagnosis: Hypertensive urgency Obstructive sleep apnea Discharge Goals: Improve disease control Activity: Resume your previous activity Non-emergency contact: Primary Care Provider Call non-emergency contact if: you have any medication questions Follow-up/Referrals: Roe Hayes M.D. [Primary Care Provider] - Diet: Carb Consistent or DM2 and Low Sodium (2gm) Addtl Provider Instructions: Please take all medications as instructed on discharge list below. There were no changes made to your current regimen. It is recommended that you maintain compliance with a CPAP mask as often as you can to help improve your blood pressure and energy levels. It is recommended that you see your primary care physician within 1 week of discharge from the hospital. You have the following appointment scheduled: CARDIOLOGY 10/19/2018 2:00 PM Raymond Mccormack Jr., DO Cardiology, [facility] It was a pleasure taking care of you! Please call if you have any questions or problems. You can reach a [facility] hospitalist on duty at [facility] 24 hours a day by calling [phone]. Take care of yourself. DO [facility] Prescriptions: Continued glyburide 5 mg tablet 10 mg PO BID RF: 0 acetaminophen [Tylenol Arthritis Pain] 650 mg Tablet Extended Release 1 - 2 tab PO Q12H PRN (Reason: Pain) RF: 0 pantoprazole [Protonix] 40 mg tablet,delayed release (DR/EC) 40 mg PO QAM RF: 0 naproxen sodium [Aleve] 220 mg Tablet 220 mg PO PM PRN (Reason: Pain) RF: 0 cranberry 400 mg Capsule 400 mg PO QAM RF: 0 finasteride [Proscar] 5 mg tablet 5 mg PO HS RF: 0 Januvia 100 mg tablet 100 mg PO HS RF: 0 clonidine 0.3 mg/24 hr patch weekly 1 patch topical WK RF: 0 Probiotic 3 billion cell Capsule 3,000 mmu cells PO HS RF: 0 enalapril maleate 10 mg Tablet 40 mg PO QAM Qty: 30 RF: 1 hydralazine 25 mg Tablet 75 mg PO TID Qty: 180 RF: 1 spironolactone 25 mg Tablet 25 mg PO QAM 30 Days Qty: 30 RF: 0 hydrochlorothiazide 25 mg tablet 25 mg PO DAILY Qty: 30 RF: 0 carvedilol 6.25 mg Tablet 12.5 mg PO BID Qty: 60 RF: 1 Stand-Alone Forms: Call Back Authorization, [facility] Discharge Orders: Discharge Order (Routine); Ordered 10/16/18 Ordered By: Cheryl Davis Admission Data Admit Date/Time: 10/16/18 01:31 Attending Provider: Cheryl Davis Admit Provider: Murray Webb Primary Care Provider: Roe Hayes Other Providers: Murray Webb ; Raymond Mccormack Service: Telemetry
[2018-10-16 18:25] VITALS: PULSE 55
[2018-10-16] MEDS ORDERED: FINASTERIDE 5 MG TAB PO SCH (21:00)
[2018-10-16] MEDS ORDERED: LACTOBACILLUS ACIDOPHILUS (FLORANEX) TAB PO SCH (21:00)
[2018-10-21] MEDS ORDERED: cloNIDine HCL 0.3 MG/24 HR TRANSDERM SYS TD SCH (09:00)
== END 2018-10-16 18:24 | disposition home or self-care (01) ==
LOC: ED 23:19 → 2E 23:19
PROC: CLB.CCO (~2018-10-15)